=== PATIENT | male | born 1990 | race Caucasian/White ===

== ENCOUNTER 2018-03-23 12:18 | Emergency (ER) | payer OTHER ==
[2018-03-23 12:55] VITALS: BP 134/86; PULSE 80; RESP 18; TEMP 97
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
== END 2018-03-23 13:23 | disposition home or self-care (01) ==
LOC: EC 12:18
DX: S01.81XA Laceration without foreign body of other part of head, initial encounter (principal); S46.912A Strain of unspecified muscle, fascia and tendon at shoulder and upper arm level, left arm, initial encounter; F17.200 Nicotine dependence, unspecified, uncomplicated; Z88.5 Allergy status to narcotic agent; V86.09XA Driver of other special all-terrain or other off-road motor vehicle injured in traffic accident, initial encounter; Y93.55 Activity, bike riding; Y92.89 Other specified places as the place of occurrence of the external cause
CPT/HCPCS: 99282

== ENCOUNTER 2019-06-21 07:27 | Inpatient (IN) | payer BC, OTHER ==
[2019-06-21] MEDS ORDERED: HYDROmorphone 1 MG/ML 1 ML SYRINGE IVP STA (07:49)
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
--- NOTE | 2019-06-21 08:13 | XR ---
EXAMINATION TYPE: XR shoulder complete RT , 3 VIEWS DATE OF EXAM ORDERED: 06/21/2019 HISTORY: Pain. COMPARISON: None. FINDINGS: No fracture, dislocation or other acute osseous lesion is seen. IMPRESSION: NO ACUTE OSSEOUS LESION.
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
[2019-06-21 08:35] LABS: Basophils % (A) 0 %; Eosinophils # (A) 0.1 k/uL (0-0.7); Eosinophils % (A) 1 %; HCT 46.4 % (39.0-53.0); HGB 15.6 gm/dL (13.0-17.5); Lymphocytes # (A) 1.2 k/uL (1.0-4.8); Lymphocytes % (A) 9 %; MCH 32.8 pg (25.0-35.0); MCHC 33.6 g/dL (31.0-37.0); MCV 97.9 fL (80.0-100.0); Mean Platelet Volume 7.7; Monocytes # (A) 0.5 k/uL (0-1.0); Monocytes % (A) 3 %; Neutrophils # (A) 12.1 k/uL (1.3-7.7); Neutrophils % (A) 86 %; Platelet Count 238 k/uL (150-450); RBC 4.74 m/uL (4.30-5.90); RDW 14.1 % (11.5-15.5)
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
[2019-06-21 08:47] LABS: ALT 34 U/L (21-72); AST 67 U/L (17-59); African American GFR (CKD) >90 (>60 ml/min/1.73 sqM); Albumin 4.7 g/dL (3.5-5.0); Alkaline Phosphatase 99 U/L (38-126); Amylase 74 U/L (30-110); Anion Gap 11 mmol/L; Blood Urea Nitrogen 14 mg/dL (9-20); Calcium 9.6 mg/dL (8.4-10.2); Carbon Dioxide 24 mmol/L (22-30); Chloride 106 mmol/L (98-107); Glucose 88 mg/dL (74-99); INR 0.9 (<1.2); Partial Thromboplastin Time 24.9 sec (22.0-30.0); Potassium 4.7 mmol/L (3.5-5.1); Prothrombin Time 9.5 sec (9.0-12.0); Sodium 141 mmol/L (137-145); Total Bilirubin 0.9 mg/dL (0.2-1.3); Total Protein 7.8 g/dL (6.3-8.2)
[2019-06-21 08:49] LABS: Alcohol 86 mg/dL
[2019-06-21 08:56] LABS: Creatine Kinase 749 U/L (55-170)
[2019-06-21 09:09] LABS: Creatine Kinase MB 14.5 ng/mL (0.0-2.4); Troponin I <0.012 ng/mL (0.000-0.034)
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
--- NOTE | 2019-06-21 09:43 | XR ---
EXAMINATION TYPE: XR AC joint BILAT , 2 VIEWS DATE OF EXAM ORDERED: 06/21/2019 HISTORY: Pain. COMPARISON: None. FINDINGS: No fracture or dislocation is seen. The patient's sternal fracture is not identified on th is study. IMPRESSION: NO ACUTE FRACTURE IS IDENTIFIED.
[2019-06-21] MEDS ORDERED: SODIUM CHLORIDE 0.9% 1,000 ML IV ONE ×2 (09:56→10:04)
[2019-06-21] MEDS ORDERED: HYDROmorphone 1 MG/ML 1 ML SYRINGE IVP PRN (10:11)
[2019-06-21] MEDS ORDERED: ONDANSETRON 4 MG/2 ML VIAL IVP PRN (10:11)
[2019-06-21] MEDS ORDERED: ACETAMINOPHEN TAB 500 MG TAB PO STA (10:12)
[2019-06-21] MEDS ORDERED: SODIUM CHLORIDE 0.9% 1,000 ML IV SCH (10:15)
[2019-06-21 11:05] VITALS: RESP 16; TEMP 97.9
[2019-06-21 11:43] VITALS: BP 118/71; PULSE 62
[2019-06-21] MEDS ORDERED: KETOROLAC 30 MG/ML 1 ML VIAL IVP STA (13:08)
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
== END 2019-06-21 14:18 | disposition home or self-care (01) | DRG 565 ==
LOC: EC 07:27 → 3SCARD 10:04
PROVIDERS: ADMIT Surgery Plastic and Reconstructive Surgery; ATTEND Surgery Plastic and Reconstructive Surgery
DX: S22.20XA Unspecified fracture of sternum, initial encounter for closed fracture (principal); S27.321A Contusion of lung, unilateral, initial encounter; V86.56XA Driver of dirt bike or motor/cross bike injured in nontraffic accident, initial encounter; F17.200 Nicotine dependence, unspecified, uncomplicated; S43.50XA Sprain of unspecified acromioclavicular joint, initial encounter; Z88.5 Allergy status to narcotic agent
CPT/HCPCS: 36415; 70450; 71045; 71260; 72125; 72170; 73050; 74177; 80053; 80320; 82150; 82550; 82553; 83605; 83690; 84484; 85025; 85610; 85730; 86850; 86900; 86901; 93005; 96361; 96374; 99291

== ENCOUNTER 2020-12-23 21:24 | Emergency (ER) | payer BC ==
[2020-12-23 21:32] VITALS: RESP 18
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
[2020-12-23 22:04] LABS: Chloride 105 mmol/L (98-107); Potassium 5.2 mmol/L (3.5-5.1); Sodium 136 mmol/L (137-145)
[2020-12-23 22:08] LABS: Appearance,Urine Clear (Clear); Bilirubin,Urine 1+ (Negative); Blood,Urine Negative (Negative); Color,Urine Dark Yellow; Glucose,Urine (UA) Negative (Negative); Ketones,Urine Negative (Negative); Leukocyte Esterase,Urine Negative (Negative); Nitrite,Urine Negative (Negative); Protein,Urine Trace (Negative)
[2020-12-23 22:16] LABS: Anisocytosis Slight; HCT 28.7 % (39.0-53.0); MCV 101.1 fL (80.0-100.0); Macrocytosis Moderate; Mean Platelet Volume 9.1; Platelet Count 118 k/uL (150-450); RBC 2.84 m/uL (4.30-5.90); RDW 18.1 % (11.5-15.5); WBC 8.9 k/uL (3.8-10.6)
[2020-12-23 22:18] LABS: MCHC 32.9 g/dL (31.0-37.0)
[2020-12-23 22:19] LABS: HGB 9.5 gm/dL (13.0-17.5)
[2020-12-23 22:37] LABS: African American GFR (CKD) >90 (>60 ml/min/1.73 sqM); Anion Gap 7 mmol/L; Non-African American GFR(CKD) >90 (>60 ml/min/1.73 sqM)
[2020-12-23 22:42] LABS: Albumin 2.9 g/dL (3.5-5.0); Blood Urea Nitrogen 26 mg/dL (9-20); Carbon Dioxide 24 mmol/L (22-30); Total Bilirubin 3.7 mg/dL (0.2-1.3)
[2020-12-23 22:43] LABS: ALT 100 U/L (4-49); AST 185 U/L (17-59); Alkaline Phosphatase 532 U/L (38-126)
[2020-12-23 22:44] LABS: Glucose 109 mg/dL (74-99)
[2020-12-23 22:45] LABS: Band Neutrophils % 1 %; Eosinophils # (M) 0.09 k/uL (0-0.7); Lymphocytes # (M) 4.45 k/uL (1.0-4.8); Monocytes # (M) 0.18 k/uL (0-1.0); Neutrophils % (M) 46 %; Nucleated Red Blood Cells 0 /100 WBC (0-0); Total Cells Counted 100
--- NOTE | 2020-12-23 23:45 | US ---
EXAMINATION TYPE: US venous doppler duplex LE DATE OF EXAM: 12/23/2020 11:25 PM COMPARISON: NONE CLINICAL HISTORY: Elevated d-dimer. Overall limb and face swelling SIDE PERFORMED: Bilateral TECHNIQUE: The lower extremity deep venous system is examined utilizing real time linear array sonog praveena with graded compression, doppler sonography and color-flow sonography. VESSELS IMAGED: Common Femoral Vein Deep Femoral Vein Greater Saphenous Vein * Femoral Vein Popliteal Vein Small Saphenous Vein * Proximal Calf Veins (* superficial vessels) Right Leg: Negative for DVT Left Leg: Negative for DVT Edema channels are noted bilateral popliteal fossa and at ankles.Right groin lymph node is seen =1.7 x 0.8 x 0.6cm. Left groin lymph node is seen = 2.5 x 1.1 x 0.6cm. IMPRESSION: No evidence of deep vein thrombosis in both legs. Mild edema noted.
[2020-12-24 00:27] VITALS: BP 104/66; PULSE 64; TEMP 98.8
== END 2020-12-24 00:32 | disposition home or self-care (01) ==
LOC: EC 21:24
DX: R60.0 Localized edema (principal); K70.40 Alcoholic hepatic failure without coma; F10.20 Alcohol dependence, uncomplicated; F17.200 Nicotine dependence, unspecified, uncomplicated; Z88.5 Allergy status to narcotic agent; Y90.9 Presence of alcohol in blood, level not specified
CPT/HCPCS: 36415; 80053; 81003; 85025; 85379; 93970; 99284

== ENCOUNTER → 2021-01-02 | Outpatient (CLI) | payer BC ==
--- NOTE | 2021-01-02 16:14 | CT ---
EXAMINATION TYPE: CT abdomen pelvis w con DATE OF EXAM: 01/02/2021 COMPARISON: CT June 21, 2019 HISTORY: Enlarged lymph nodes, liver failure CT DLP: 403.9 mGycm, Automated Exposure Control for Dose Reduction was Utilized. CONTRAST: CT scan of the abdomen and pelvis is performed with oral and with IV Contrast, patient injected with 100 mL of Isovue 300. FINDINGS: LUNG BASES: No significant abnormality is appreciated. LIVER/GB: Contracted gallbladder currently likely product of debris-filled stomach. Liver size stable and within normal limits with prominent left hepatic lobe redemonstrated PANCREAS: No significant abnormality is seen. SPLEEN: No significant abnormality is seen. ADRENALS: No significant abnormality is seen. KIDNEYS: Symmetric corticomedullary uptake and excretion without hydronephrosis seen bilaterally. Sin gle left-sided pelvic phlebolith. BOWEL: Oral contrast reaches level of the sigmoid colon. Patient has very little intra-abdominal fat making evaluation suboptimal. No suspicious small or large bowel dilatation is seen. Note is made of wandering cecum actually to left of midline in the mid pelvis with terminal ileum axial image 59 sita esponding to coronal image 51. This in retrospect was present on prior study is seen better on curren t study due to enteric contrast. Seen better on prior study there is narrowing of mesenteric structur es coronal image 31 localized small bowel loops in the right lower quadrant and upper pelvis. PROSTATE/SEMINAL VESICLES: No gross abnormality seen. LYMPH NODES: No greater than 1cm abdominal or pelvic lymph nodes are appreciated. OSSEOUS STRUCTURES: Some facet arthropathy lower lumbar spine. OTHER: No significant additional abnormality is seen. IMPRESSION: No significant new or acute finding is seen to account for patient's clinical symptoms. There is wandering cecum to the left of midline in the mid pelvis redemonstrated. There is suspected long-standing internal hernia containing nondilated small bowel loops along with fat and mesenteric v essels in the right lower quadrant. Consider surgical referral. No suspicious adenopathy.
== END ==
LOC: RADCTMAIN 13:26
PROVIDERS: ATTEND Family Medicine
DX: K72.90 Hepatic failure, unspecified without coma (principal)
CPT/HCPCS: 74177; Q9967

== ENCOUNTER → 2021-06-29 | Outpatient (CLI) | payer BC ==
[2021-06-29 16:39] LABS: Basophils % (A) 1 %; Eosinophils # (A) 0.1 k/uL (0-0.7); Eosinophils % (A) 1 %; HCT 36.9 % (39.0-53.0); HGB 12.1 gm/dL (13.0-17.5); Lymphocytes # (A) 1.7 k/uL (1.0-4.8); Lymphocytes % (A) 23 %; MCH 35.6 pg (25.0-35.0); MCHC 32.7 g/dL (31.0-37.0); Macrocytosis Marked; Mean Platelet Volume 8.7; Monocytes # (A) 0.2 k/uL (0-1.0); Monocytes % (A) 3 %; Neutrophils # (A) 4.9 k/uL (1.3-7.7); Neutrophils % (A) 69 %; Platelet Count 148 k/uL (150-450); RBC 3.39 m/uL (4.30-5.90); RDW 14.5 % (11.5-15.5); WBC 7.1 k/uL (3.8-10.6)
[2021-06-29 16:49] LABS: ALT 77 U/L (4-49); AST 172 U/L (17-59); African American GFR (CKD) >90 (>60 ml/min/1.73 sqM); Albumin 3.1 g/dL (3.5-5.0); Alkaline Phosphatase 359 U/L (38-126); Anion Gap 6 mmol/L; Blood Urea Nitrogen 18 mg/dL (9-20); Calcium 8.6 mg/dL (8.4-10.2); Carbon Dioxide 26 mmol/L (22-30); Chloride 101 mmol/L (98-107); Glucose 105 mg/dL (74-99); Non-African American GFR(CKD) >90 (>60 ml/min/1.73 sqM); Potassium 4.7 mmol/L (3.5-5.1); Sodium 133 mmol/L (137-145); Total Bilirubin 1.5 mg/dL (0.2-1.3); Total Protein 6.5 g/dL (6.3-8.2)
[2021-06-29 16:51] LABS: INR 1.3 (<1.2); Prothrombin Time 13.5 sec (9.0-12.0)
[2021-06-30 03:12] LABS: Hepatitis A Antibody IgM Non-Reactive (Non-Reactive); Hepatitis B Core IgM Non-Reactive (Non-Reactive); Hepatitis B Surface Antigen Non-Reactive (Non-Reactive); Hepatitis C IgG Antibody Non-Reactive (Non-Reactive)
[2021-06-30 04:05] LABS: % Iron Saturation 74.46 (15.00-50.00); Ferritin 647.5 ng/mL (22.0-322.0); Iron 137 ug/dL (65-175); Total Iron Binding Capacity 184 ug/dL (228-460)
--- NOTE | 2021-06-30 08:45 | CT ---
EXAMINATION TYPE: CT abdomen pelvis w con DATE OF EXAM: 06/29/2021 COMPARISON: 01/02/2021 HISTORY: 31-year-old male R63.4, abnormal weight loss x4 months TECHNIQUE: Contiguous axial scanning of the abdomen and pelvis following administration of 100 ml Iso spencer 300 IV contrast. Delayed images through the kidneys and coronal/sagittal reconstructions perform ed. CT DLP: 379.5 mGycm Automated exposure control for dose reduction was used. FINDINGS: Heart normal size without pericardial effusion. Lung bases clear without pleural effusion. Hepatomegaly at 19.1 cm versus 16.2 cm, previously. There is diffuse low attenuation of the hepatic p arenchyma. Portal venous system is patent. Bile duct caliber 6.3 mm versus 5.6 mm, previously. The gallbladder is markedly hydropic measuring 12.9 cm long and 5.5 cm wide. No significant wall thic kening or surrounding inflammation is seen. Adrenal glands, kidneys, spleen, and pancreas appear within normal limits. No dilated small bowel, free fluid, or free air. No mesenteric or retroperitoneal lymphadenopathy. Bladder is urine distended. Prostate gland 4.4 cm wide. Left-sided pelvic phlebolith. No abnormal flu id collection in the pelvis or pelvic lymph adenopathy. Bones: No osseous destructive process. IMPRESSION: 1. NEW HEPATOMEGALY AT 19.1 CM (VERSUS 16.2 CM, PREVIOUSLY) NOW WITH DIFFUSE LOW ATTENUATION. CORRELA TE FOR HEPATIC STEATOSIS VERSUS HEPATITIS. 2. BILE DUCT BORDERLINE DISTENDED AT 6.3 MM VERSUS 5.6 MM, PREVIOUSLY. CORRELATE WITH ALKALINE PHOSPH ATASE AND BILIRUBIN LEVELS TO EXCLUDE EARLY BILIARY OBSTRUCTION. BY CT, NO DISTAL OBSTRUCTING LESION IS SEEN. 3. THE GALLBLADDER IS ALSO PROMINENTLY HYDROPIC MEASURING 12.9 X 5.5 CM. HOWEVER, NO WALL THICKENING OR SURROUNDING INFLAMMATION IS SEEN. FINDINGS MAY RELATED TO FASTING STATE. IF CONCERN FOR GALLBLADDE R DYSFUNCTION OR EARLY CHOLECYSTITIS, HIDA SCAN CAN BE CONSIDERED.
== END | disposition home or self-care (01) ==
LOC: RADCTMAIN 15:40
PROVIDERS: ATTEND Internal Medicine Gastroenterology
DX: R16.0 Hepatomegaly, not elsewhere classified (principal)
CPT/HCPCS: 80053; 80074; 82728; 83540; 83550; 85025; 85610; 83516; 82390; 86038; 74177; 36415; Q9967

== ENCOUNTER 2021-07-06 19:32 | Inpatient (IN) | payer BC ==
[2021-07-06] MEDS ORDERED: SODIUM CHLORIDE 0.9% 1,000 ML IV STA (22:13)
[2021-07-06] MEDS ORDERED: SODIUM CHLORIDE 0.9% 2,000 ML IV STA (22:13)
[2021-07-06] MEDS ORDERED: MORPHINE SULFATE 4 MG/ML SYRINGE IV STA (22:13)
[2021-07-06] MEDS ORDERED: KETOROLAC 15 MG/ML 1 ML VIAL IVP STA (22:13)
[2021-07-06 22:49] LABS: Basophils # (A) 0.1 k/uL (0-0.2); Basophils % (A) 1 %; Eosinophils # (A) 0.1 k/uL (0-0.7); Eosinophils % (A) 1 %; HCT 40.2 % (39.0-53.0); HGB 13.8 gm/dL (13.0-17.5); Lymphocytes # (A) 1.8 k/uL (1.0-4.8); Lymphocytes % (A) 18 %; MCH 35.9 pg (25.0-35.0); MCHC 34.3 g/dL (31.0-37.0); MCV 104.9 fL (80.0-100.0); Macrocytosis Moderate; Mean Platelet Volume 8.6; Monocytes # (A) 0.6 k/uL (0-1.0); Monocytes % (A) 6 %; Neutrophils # (A) 7.1 k/uL (1.3-7.7); Neutrophils % (A) 73 %; Platelet Count 122 k/uL (150-450); RBC 3.83 m/uL (4.30-5.90); RDW 14.4 % (11.5-15.5); WBC 9.7 k/uL (3.8-10.6)
[2021-07-06 22:58] LABS: ALT 68 U/L (4-49); AST 175 U/L (17-59); African American GFR (CKD) >90 (>60 ml/min/1.73 sqM); Albumin 3.5 g/dL (3.5-5.0); Alkaline Phosphatase 424 U/L (38-126); Anion Gap 8 mmol/L; Blood Urea Nitrogen 18 mg/dL (9-20); Calcium 8.9 mg/dL (8.4-10.2); Carbon Dioxide 26 mmol/L (22-30); Chloride 97 mmol/L (98-107); Glucose 138 mg/dL (74-99); Non-African American GFR(CKD) >90 (>60 ml/min/1.73 sqM); Potassium 3.8 mmol/L (3.5-5.1); Sodium 131 mmol/L (137-145); Total Bilirubin 3.1 mg/dL (0.2-1.3); Total Protein 7.1 g/dL (6.3-8.2)
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
[2021-07-06 23:25] LABS: Amylase 437 U/L (30-110)
[2021-07-06 23:26] LABS: Lipase 6074 U/L (23-300)
[2021-07-06] MEDS ORDERED: NALOXONE 0.4 MG/ML 1 ML VIAL IV PRN (23:45)
[2021-07-06] MEDS ORDERED: ONDANSETRON 4 MG/2 ML VIAL IVP PRN (23:45)
[2021-07-07] MEDS: SODIUM CHLORIDE 0.9% 1,000 ML IV SCH ×4 (01:04→21:43)
[2021-07-07 06:09] LABS: ALT 52 U/L (4-49); AST 131 U/L (17-59); African American GFR (CKD) >90 (>60 ml/min/1.73 sqM); Albumin 2.3 g/dL (3.5-5.0); Alkaline Phosphatase 272 U/L (38-126); Anion Gap 2 mmol/L; Blood Urea Nitrogen 16 mg/dL (9-20); Calcium 7.3 mg/dL (8.4-10.2); Carbon Dioxide 22 mmol/L (22-30); Chloride 108 mmol/L (98-107); Glucose 101 mg/dL (74-99); Magnesium 1.4 mg/dL (1.6-2.3); Non-African American GFR(CKD) >90 (>60 ml/min/1.73 sqM); Potassium 3.8 mmol/L (3.5-5.1); Sodium 132 mmol/L (137-145); Total Bilirubin 2.9 mg/dL (0.2-1.3); Total Protein 5.2 g/dL (6.3-8.2)
[2021-07-07] MEDS: MORPHINE SULFATE 4 MG/ML SYRINGE IV PRN ×4 (06:23→18:51)
[2021-07-07 06:43] LABS: Basophils % (A) 0 %; Eosinophils # (A) 0.1 k/uL (0-0.7); Eosinophils % (A) 1 %; HCT 31.3 % (39.0-53.0); Lymphocytes # (A) 1.6 k/uL (1.0-4.8); Lymphocytes % (A) 25 %; MCH 35.5 pg (25.0-35.0); MCV 107.5 fL (80.0-100.0); Macrocytosis Moderate; Mean Platelet Volume 9.5; Monocytes # (A) 0.3 k/uL (0-1.0); Monocytes % (A) 5 %; Neutrophils # (A) 4.1 k/uL (1.3-7.7); Neutrophils % (A) 65 %; RBC 2.91 m/uL (4.30-5.90); WBC 6.4 k/uL (3.8-10.6)
[2021-07-07 06:49] LABS: HGB 10.3 gm/dL (13.0-17.5)
[2021-07-07 07:04] LABS: Platelet Count 96 k/uL (150-450)
[2021-07-07 08:58] LABS: Amylase 294 U/L (30-110)
[2021-07-07 09:18] LABS: Lipase 3959 U/L (23-300)
[2021-07-07] MEDS: PANTOPRAZOLE 40 MG/10 ML VIAL IV SCH (10:05)
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
[2021-07-07] MEDS: MAGNESIUM SULFATE-D5W PMX 1 GM in DEXTROSE/WATER 1 100ML.BAG IVPB SCH ×2 (13:00→14:07)
[2021-07-07] MEDS ORDERED: KETOROLAC 15 MG/ML 1 ML VIAL IVP ONE (19:57)
[2021-07-08] MEDS: SODIUM CHLORIDE 0.9% 1,000 ML IV SCH ×3 (05:39→19:12)
[2021-07-08] MEDS: MORPHINE SULFATE 4 MG/ML SYRINGE IV PRN ×4 (05:41→19:08)
[2021-07-08 06:24] LABS: Hepatitis A Antibody IgM Non-Reactive (Non-Reactive); Hepatitis B Core IgM Non-Reactive (Non-Reactive); Hepatitis B Surface Antigen Non-Reactive (Non-Reactive); Hepatitis C IgG Antibody Non-Reactive (Non-Reactive)
[2021-07-08] MEDS: PANTOPRAZOLE 40 MG/10 ML VIAL IV SCH (08:32)
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
[2021-07-08] MEDS: FLUoxetine HCL 10 MG CAP PO SCH (09:48)
[2021-07-08 12:16] LABS: African American GFR (CKD) 156.4 (60.0-200.0); Albumin 2.6 g/dL (3.80-4.90); Albumin/Globulin Ratio 1.08 (1.60-3.17); Anion Gap 6.5 mmol/L (4.00-12.00); Calcium 7.8 mg/dL (8.7-10.3); Carbon Dioxide 22.5 mmol/L (21.6-31.8); Globulin 2.4 g/dL (1.6-3.3); Non-African American GFR(CKD) 134.9 (60.0-200.0); Potassium 3.8 mmol/L (3.5-5.5); Total Bilirubin 4.3 mg/dL (0.3-1.2)
[2021-07-08 12:45] VITALS: BMI 16.2
[2021-07-08 13:13] LABS: Basophils # (A) 0.03 X 10*3/uL (0.00-0.10); Basophils % (A) 0.5 %; Eosinophils # (A) 0.11 X 10*3/uL (0.04-0.35); Eosinophils % (A) 1.9 %; HCT 30.4 % (39.6-50.0); HGB 10.2 g/dL (13.0-17.0); Lymphocytes # (A) 0.88 X 10*3/uL (0.90-5.00); Lymphocytes % (A) 14.9 %; MCH 33.2 pg (27.0-32.0); MCHC 33.6 g/dL (32.0-37.0); Mean Platelet Volume 12.1 fL (9.5-12.2); Monocytes # (A) 0.63 X 10*3/uL (0.20-1.00); Monocytes % (A) 10.7 %; Neutrophils # (A) 4.24 X 10*3/uL (1.80-7.70); Neutrophils % (A) 71.7 %; Platelet Count 83 X 10*3/uL (140-440); RBC 3.07 X 10*6/uL (4.40-5.60); RDW 14.6 % (11.5-14.5); WBC 5.91 X 10*3/uL (4.50-10.00)
--- NOTE | 2021-07-08 14:21 | P.PN ---
Subjective Progress Note Date: 07/08/21 CHIEF COMPLAINT: Abdominal pain with pancreatitis HISTORY OF PRESENT ILLNESS: The patient is a 31-year-old male admitted for pancreatitis. He has a past history of heavy alcohol abuse. He presented with abdominal pain with pancreatitis. His abdominal pain is improving. He is having bowel movements. ROS: No reports of nausea and vomiting. No fevers or chills. No new chest pain. No productive sputum PHYSICAL EXAM: VITAL SIGNS: Reviewed CONSTITUTIONAL: Well developed and in no acute distress. EYES: Conjuctivae sclera icterus. Extraocular movements grossly intact. HEAD, EARS, NOSE, THROAT: Moist buccal mucosa. Head is atraumatic, normocephalic. Hears conversational speech. No nasal drainage. NECK: No gross thyroidomegaly. No jugular venous distention. RESPIRATORY: Non-labored respirations and equal bilateral excursions. CARDIOVASCULAR: Palpable 2+ radial pulses. Regular rate. Regular rhythm. ABDOMEN: No peritonitis. MUSCULOSKELETAL: No gross deformity of the lower extremities noted. No clubbing. No cyanosis. SKIN: Good skin turgor. Well perfused. NEUROLOGIC: Cranial nerves II through XII grossly intact. No focal or lateralizing signs. PSYCH: Appropriate affect. Alert and oriented to person, place and time. CLINICAL LABS: White blood cell count normal at 6.4. Total bilirubin elevated to 2.9 down from 3.1. LFTs elevated. Lipase elevated 3959 down from over 6000. STUDIES: CT of the abdomen and pelvis independently reviewed with distended gallbladder. Moderate severe hepatomegaly identified. Little intra-abdominal fat. This is my independent interpretation. US gallbladder independently reviewed CBD dilated 1.07 cm. Gallbladder distended without gallstones identified. This is my independent interpretation. Ultrasound gallbladder port also reviewed with dilated common bile duct 1.1 cm unclear etiology. ASSESSMENT: 1. Pancreatitis with history of alcohol use 2. Dilated common bile duct 3. Hyperbilirubinemia PLAN: 1. Clinically he reports improvement of his symptoms. 2. He has dilated CBD that may benefit from MRCP and can be done as an outpatient. 3. He is clinically improving and may be stable for discharge once medically s table. Objective - Vital Signs Vital signs: Vital Signs Temp 97.6 F 07/08/21 06:48 Pulse 85 07/08/21 06:48 Resp 19 07/08/21 06:48 BP 145/88 07/08/21 06:48 Pulse Ox 96 07/08/21 06:48 Intake & Output 07/07/21 07/08/21 07/08/21 18:59 06:59 18:59 Intake Total 520 1560 Output Total 1 Balance 520 1559 Weight 55.792 kg Intake: IV 520 1560 Sodium Chloride 0.9% 1, 520 1560 000 ml @ 130 mls/hr IV . Q7H42M [facility] Rx#:[id number] Output: Urine 1 - Labs CBC & Chem 7: 07/08/21 07:46 07/08/21 07:46 Assessment and Plan (1) Hyperbilirubinemia Current Visit: Yes Status: Acute Code(s): E80.6 - OTHER DISORDERS OF BILIRUBIN METABOLISM SNOMED Code(s): 06171166 (2) Dilated cbd, acquired Current Visit: Yes Status: Acute Code(s): K83.8 - OTHER SPECIFIED DISEASES OF BILIARY TRACT SNOMED Code(s): 3574187079079582 (3) Hepatomegaly Current Visit: Yes Status: Acute Code(s): R16.0 - HEPATOMEGALY, NOT ELSEWHERE CLASSIFIED SNOMED Code(s): 99340523 (4) Hydrops of gallbladder Current Visit: Yes Status: Acute Code(s): K82.1 - HYDROPS OF GALLBLADDER SNOMED Code(s): 35130463 (5) Acute pancreatitis Current Visit: Yes Status: Acute Code(s): K85.90 - ACUTE PANCREATITIS WITHOUT NECROSIS OR INFECTION, UNSP SNOMED Code(s): 465051762
--- NOTE | 2021-07-08 18:36 | P.PN ---
Subjective Progress Note Date: 07/08/21 Principal diagnosis: Acute pancreatitis Elevated LFTs/total bilirubin Dilated common bile duct EtOH abuse 31-year-old male with history of alcoholism coming in with 3-4 days of abdominal pain. Outpatient lab tests were consistent with pancreatitis of unknown cause. Patient did have an ultrasound which shows maybe gallbladder disease. Patient no longer drinks alcohol. She presents today after injuring of his family doctor for evaluation regarding gallbladder induced pancreatitis. He does have significant pain epigastric right upper quadrant abdominal pain no nausea vomiting diarrhea or other complaints. No fevers; abdominal ultrasound compl eted showing a dilated common bile duct, etiology unclear. Patient's pancreatic enzymes and LFTs are elevated. He was admitted to the hospital for an acute pancreatitis. Patient denies any history of pancreatitis in the past. He denies any fever chills or sweats. He does report that his urine is dark. Laboratory reveals a WBC of 6.4, hemoglobin 10.3 and platelet count of 96; sodium 132, potassium 2.8, creatinine 0.65, glucose 11 and lactic acid of 1.1, magnesium 1.4, total bilirubin 2.9 which is down from 3.1 as outpatient, AST/ALT 131/52 which is trending down, amylase is trending down and is down from 437 down to 94, lipase is down to 3959 from 6074 Computed tomography scan abdomen and pelvis completed on 06/30/2021 new hepatomegaly at 19.1 cm versus 16.2 cm previously now with diffuse a low attenuation correlate for hepatic steatosis versus hepatitis. Bile duct borderline distended at 16.3 mm versus 5.6 mm. Gallbladder is also probably hydropic measuring 12.9 x 5.5 cm. No wall thickening or surrounding inflammation seen. Findings may related to fasting state. Abdominal ultrasound completed showing a dilated common bile duct, etiology unclear Objective - Vital Signs Vital signs: Vital Signs Temp 97.6 F 07/08/21 06:48 Pulse 85 07/08/21 06:48 Resp 19 07/08/21 06:48 BP 145/88 07/08/21 06:48 Pulse Ox 96 07/08/21 06:48 Intake & Output 07/07/21 07/08/21 07/08/21 18:59 06:59 18:59 Intake Total 520 1560 Output Total 1 Balance 520 1559 Weight 55.792 kg Intake: IV 520 1560 Sodium Chloride 0.9% 1, 520 1560 000 ml @ 130 mls/hr IV . Q7H42M [facility] Rx#:[id number] Output: Urine 1 - Exam General appearance: Present: average body habitus, cooperative, no acute distress Eyes: Present: anicteric sclerae, EOMI, PERRLA, normal appearance Neck: Present: normal ROM. Absent: lymphadenopathy, rigidity, thyromegaly Thyroid: bilateral: normal size, negative: enlarged, nodule Respiratory: bilateral: CTA, negative: rales, rhonchi, wheezing Rhythm: regular Heart sounds: normal: S1, S2 Abnormal Heart Sounds: Absent: systolic murmur, diastolic murmur General gastrointestinal: Present: normal bowel sounds, soft. Absent: distended, organomegaly, tenderness Integumentary: Present: normal turgor. Absent: jaundiced, rash, ulcer Neurologic: Present: CNII-XII intact. Absent: focal deficits Musculoskeletal: Present: gait normal, strength equal bilaterally - Labs CBC & Chem 7: 07/08/21 07:46 07/08/21 07:46
[2021-07-09] MEDS: SODIUM CHLORIDE 0.9% 1,000 ML IV SCH ×3 (05:45→21:03)
[2021-07-09] MEDS: FLUoxetine HCL 10 MG CAP PO SCH (08:26)
[2021-07-09] MEDS: PANTOPRAZOLE 40 MG/10 ML VIAL IV SCH (08:26)
--- NOTE | 2021-07-09 13:54 | P.PN ---
Subjective Progress Note Date: 07/09/21 CHIEF COMPLAINT: Abdominal pain with pancreatitis HISTORY OF PRESENT ILLNESS: The patient is a 31-year-old male admitted for pancreatitis. He denies significant abdominal pain. He reports hunger. ROS: No reports of nausea and vomiting. No fevers or chills. No new chest pain. No productive sputum PHYSICAL EXAM: VITAL SIGNS: Reviewed CONSTITUTIONAL: Well developed and in no acute distress. EYES: Conjuctivae sclera icterus. Extraocular movements grossly intact. HEAD, EARS, NOSE, THROAT: Moist buccal mucosa. Head is atraumatic, normocephalic. Hears conversational speech. No nasal drainage. RESPIRATORY: Non-labored respirations and equal bilateral excursions. CARDIOVASCULAR: Palpable 2+ radial pulses. Regular rate. Regular rhythm. ABDOMEN: No peritonitis. MUSCULOSKELETAL: No gross deformity of the lower extremities noted. No clubbing. No cyanosis. SKIN: Good skin turgor. Well perfused. NEUROLOGIC: Cranial nerves II through XII grossly intact. No focal or lateralizing signs. PSYCH: Appropriate affect. Alert and oriented to person, place and time. CLINICAL LABS: Reviewed. Total bilirubin trending upwards. LFTs trending down. ASSESSMENT: 1. Pancreatitis with history of alcohol use 2. Dilated common bile duct 3. Hyperbilirubinemia PLAN: 1. He clinically feels well but total bilirubin continues to elevate 2. May start low fat diet. 3. May need MRCP with trending total bilirubin and possible transfer without gastroenterology team coverage Objective - Vital Signs Vital signs: Vital Signs Temp 96.3 F L 07/09/21 07:50 Pulse 73 07/09/21 07:50 Resp 18 07/09/21 07:50 BP 125/83 07/09/21 07:50 Pulse Ox 96 07/09/21 07:50 Intake & Output 07/08/21 07/09/21 07/09/21 18:59 06:59 18:59 Intake Total 2620 1380 Balance 2620 1380 Weight 55.792 kg Intake: IV 780 Sodium Chloride 0.9% 1, 780 000 ml @ 130 mls/hr IV . Q7H42M [facility] Rx#:[id number] Intake, IV Titration 2620 Amount Sodium Chloride 0.9% 1, 2620 000 ml @ 130 mls/hr IV . Q7H42M [facility] Rx#:[id number] Oral 600 Other: Voiding Method Toilet Toilet # Voids 4 2 # Bowel Movements 1 - Labs CBC & Chem 7: 07/08/21 07:46 07/08/21 07:46 Assessment and Plan (1) Hyperbilirubinemia Current Visit: Yes Status: Acute Code(s): E80.6 - OTHER DISORDERS OF BILIRUBIN METABOLISM SNOMED Code(s): 80804325 (2) Dilated cbd, acquired Current Visit: Yes Status: Acute Code(s): K83.8 - OTHER SPECIFIED DISEASES OF BILIARY TRACT SNOMED Code(s): 6063738829904248 (3) Hepatomegaly Current Visit: Yes Status: Acute Code(s): R16.0 - HEPATOMEGALY, NOT ELSEWHERE CLASSIFIED SNOMED Code(s): 17138200 (4) Hydrops of gallbladder Current Visit: Yes Status: Acute Code(s): K82.1 - HYDROPS OF GALLBLADDER SNOMED Code(s): 76651512 (5) Acute pancreatitis Current Visit: Yes Status: Acute Code(s): K85.90 - ACUTE PANCREATITIS WITHOUT NECROSIS OR INFECTION, UNSP SNOMED Code(s): 681355741
[2021-07-09] MEDS: MORPHINE SULFATE 4 MG/ML SYRINGE IV PRN ×2 (17:35→20:58)
--- NOTE | 2021-07-09 18:15 | P.PN ---
Subjective Progress Note Date: 07/09/21 Principal diagnosis: Acute pancreatitis Elevated LFTs/total bilirubin Dilated common bile duct EtOH abuse 31-year-old male with history of alcoholism coming in with 3-4 days of abdominal pain. Outpatient lab tests were consistent with pancreatitis of unknown cause. Patient did have an ultrasound which shows maybe gallbladder disease. Patient no longer drinks alcohol. She presents today after injuring of his family doctor for evaluation regarding gallbladder induced pancreatitis. He does have significant pain epigastric right upper quadrant abdominal pain no nausea vomiting diarrhea or other complaints. No fevers; abdominal ultrasound compl eted showing a dilated common bile duct, etiology unclear. Patient's pancreatic enzymes and LFTs are elevated. He was admitted to the hospital for an acute pancreatitis. Patient denies any history of pancreatitis in the past. He denies any fever chills or sweats. He does report that his urine is dark. Laboratory reveals a WBC of 6.4, hemoglobin 10.3 and platelet count of 96; sodium 132, potassium 2.8, creatinine 0.65, glucose 11 and lactic acid of 1.1, magnesium 1.4, total bilirubin 2.9 which is down from 3.1 as outpatient, AST/ALT 131/52 which is trending down, amylase is trending down and is down from 437 down to 94, lipase is down to 3959 from 6074 Computed tomography scan abdomen and pelvis completed on 06/30/2021 new hepatomegaly at 19.1 cm versus 16.2 cm previously now with diffuse a low attenuation correlate for hepatic steatosis versus hepatitis. Bile duct borderline distended at 16.3 mm versus 5.6 mm. Gallbladder is also probably hydropic measuring 12.9 x 5.5 cm. No wall thickening or surrounding inflammation seen. Findings may related to fasting state. Abdominal ultrasound completed showing a dilated common bile duct, etiology unclear 07/09/2021 Patient is seen and evaluated in room at bedside; does report improvement in symptoms; no further complaint of nausea/vomiting or abdominal pain Patient has been evaluated by general surgery; given continued uptrending total bilirubin, patient is recommended MRCP MRCP is ordered which cannot be done until Saturday; we will continue to monitor liver enzymes; patient has been placed on a low-fat diet Objective - Vital Signs Vital signs: Vital Signs Temp 97.9 F 07/09/21 14:00 Pulse 72 07/09/21 14:00 Resp 18 07/09/21 14:00 BP 133/78 07/09/21 14:00 Pulse Ox 96 07/09/21 14:00 Intake & Output 07/08/21 07/09/21 07/09/21 18:59 06:59 18:59 Intake Total 2620 1380 Balance 2620 1380 Weight 55.792 kg Intake: IV 780 Sodium Chloride 0.9% 1, 780 000 ml @ 130 mls/hr IV . Q7H42M [facility] Rx#:[id number] Intake, IV Titration 2620 Amount Sodium Chloride 0.9% 1, 2620 000 ml @ 130 mls/hr IV . Q7H42M [facility] Rx#:[id number] Oral 600 Other: Voiding Method Toilet Toilet # Voids 4 2 # Bowel Movements 1 - Exam General appearance: Present: average body habitus, cooperative, no acute distress Eyes: Present: anicteric sclerae, EOMI, PERRLA, normal appearance Neck: Present: normal ROM. Absent: lymphadenopathy, rigidity, thyromegaly Thyroid: bilateral: normal size, negative: enlarged, nodule Respiratory: bilateral: CTA, negative: rales, rhonchi, wheezing Rhythm: regular Heart sounds: normal: S1, S2 Abnormal Heart Sounds: Absent: systolic murmur, diastolic murmur General gastrointestinal: Present: normal bowel sounds, soft. Absent: distended, organomegaly, tenderness Integumentary: Present: normal turgor. Absent: jaundiced, rash, ulcer Neurologic: Present: CNII-XII intact. Absent: focal deficits Musculoskeletal: Present: gait normal, strength equal bilaterally - Labs CBC & Chem 7: 07/08/21 07:46 07/08/21 07:46 Assessment and Plan Assessment: 1. Acute pancreatitis - We will keep patient nothing by mouth; continue with IV fluid resuscitation; we will continue to monitor amylase lipase; plan to start patient on diet once stable 2. Elevated LFTs and total bilirubin; etiology unclear; we will continue to monitor liver enzymes; patient will need GI evaluation 3. Dilated common bile duct; no signs of choledocholithiasis; no signs of acute cholecystitis; general surgery consulted and recommendations are pending 4. Hypomagnesemia; replaced in ED; we will continue to monitor electrolytes closely 5. EtOH abuse; patient quit drinking 3 weeks ago; we will continue with IV fluids and resume home dose of thiamine and folic acid once oral intake is established 6. Depression; continue with home dose of Prozac 10 mg daily DVT prophylaxis; SCDs CODE STATUS; full code
[2021-07-10] MEDS: MORPHINE SULFATE 4 MG/ML SYRINGE IV PRN ×6 (02:18→21:48)
[2021-07-10] MEDS: SODIUM CHLORIDE 0.9% 1,000 ML IV SCH ×3 (04:31→21:49)
[2021-07-10] MEDS: PANTOPRAZOLE 40 MG/10 ML VIAL IV SCH (08:08)
[2021-07-10] MEDS: FLUoxetine HCL 10 MG CAP PO SCH (08:08)
[2021-07-10 08:10] LABS: ALT 35 U/L (4-49); AST 62 U/L (17-59); African American GFR (CKD) >90 (>60 ml/min/1.73 sqM); Albumin 2.2 g/dL (3.5-5.0); Albumin/Globulin Ratio 0.8; Alkaline Phosphatase 252 U/L (38-126); Anion Gap 3 mmol/L; Blood Urea Nitrogen <2 mg/dL (9-20); Calcium 7.8 mg/dL (8.4-10.2); Carbon Dioxide 24 mmol/L (22-30); Chloride 108 mmol/L (98-107); Globulin 2.9 g/dL; Glucose 106 mg/dL (74-99); HCT 29.9 % (39.0-53.0); HGB 9.8 gm/dL (13.0-17.5); MCHC 32.7 g/dL (31.0-37.0); Macrocytosis Moderate; Magnesium 1.6 mg/dL (1.6-2.3); Mean Platelet Volume 8.9; Non-African American GFR(CKD) >90 (>60 ml/min/1.73 sqM); Platelet Count 139 k/uL (150-450); Potassium 3.6 mmol/L (3.5-5.1); RBC 2.79 m/uL (4.30-5.90); RDW 14.7 % (11.5-15.5); Sodium 135 mmol/L (137-145); Total Bilirubin 2.4 mg/dL (0.2-1.3); Total Protein 5.1 g/dL (6.3-8.2); WBC 5.8 k/uL (3.8-10.6)
[2021-07-10 09:09] LABS: Albumin 2.5 g/dL (3.80-4.90); Albumin/Globulin Ratio 1.09 (1.60-3.17); Bilirubin, Conjugated 1.8 mg/dL (0.20-0.40); Bilirubin,Unconjugated 0.7 mg/dL; Globulin 2.3 g/dL (1.6-3.3); Total Bilirubin 2.5 mg/dL (0.3-1.2); Total Protein 4.8 g/dL (6.2-8.2)
[2021-07-10 10:20] LABS: Eosinophils # (M) 0.12 k/uL (0-0.7); Nucleated Red Blood Cells 0 /100 WBC (0-0)
[2021-07-10 10:26] LABS: Lymphocytes # (M) 0.87 k/uL (1.0-4.8); Neutrophils # (M) 4.18 k/uL (1.3-7.7); Neutrophils % (M) 72 %; Total Cells Counted 200
--- NOTE | 2021-07-10 19:05 | P.PN ---
Subjective 31-year-old male with history of alcoholism coming in with 3-4 days of abdominal pain. Outpatient lab tests were consistent with pancreatitis of unknown cause. Patient did have an ultrasound which shows maybe gallbladder disease. Patient no longer drinks alcohol. She presents today after injuring of his family doctor for evaluation regarding gallbladder induced pancreatitis. He does have significant pain epigastric right upper quadrant abdominal pain no nausea vomiting diarrhea or other complaints. No fevers; abdominal ultrasound comple kenneth showing a dilated common bile duct, etiology unclear. Patient's pancreatic enzymes and LFTs are elevated. He was admitted to the hospital for an acute pancreatitis. Patient denies any history of pancreatitis in the past. He denies any fever chills or sweats. He does report that his urine is dark. Laboratory reveals a WBC of 6.4, hemoglobin 10.3 and platelet count of 96; sodium 132, potassium 2.8, creatinine 0.65, glucose 11 and lactic acid of 1.1, magnesium 1.4, total bilirubin 2.9 which is down from 3.1 as outpatient, AST/ALT 131/52 which is trending down, amylase is trending down and is down from 437 down to 94, lipase is down to 3959 from 6074 Computed tomography scan abdomen and pelvis completed on 06/30/2021 new hepatomegaly at 19.1 cm versus 16.2 cm previously now with diffuse a low attenuation correlate for hepatic steatosis versus hepatitis. Bile duct borderline distended at 16.3 mm versus 5.6 mm. Gallbladder is also probably hydropic measuring 12.9 x 5.5 cm. No wall thickening or surrounding inflammation seen. Findings may related to fasting state. Abdominal ultrasound completed showing a dilated common bile duct, etiology unclear 07/09/2021 Patient is seen and evaluated in room at bedside; does report improvement in symptoms; no further complaint of nausea/vomiting or abdominal pain Patient has been evaluated by general surgery; given continued uptrending total bilirubin, patient is recommended MRCP MRCP is ordered which cannot be done until Saturday; we will continue to monitor liver enzymes; patient has been placed on a low-fat diet Subjective: 07/10/21 Patient still complaining of from epigastric pain and tenderness although he feels is improving that he wants to continue his liquid diet although he vomited once this morning. Also he has some loose bowel movement. Hemodynamically stable and labs look stable or slightly improved. Hemoglobin is stable at 9.8. Platelet count improved 283. Bilirubin is improving to 2.4. AST is coming down to 62. ALT remains normal at 35. He remains on normal saline at 130 mL/h MRCP was requested but not can be done because its holiday at . Surgery team also on the case. There is no GI coverage today We will continue to monitor Objective - Vital Signs Vital signs: Vital Signs Temp 98.3 F 07/10/21 08:00 Pulse 68 07/10/21 08:00 Resp 18 07/10/21 08:00 BP 119/78 07/10/21 08:00 Pulse Ox 97 07/10/21 08:00 Intake & Output 07/09/21 07/10/21 07/10/21 18:59 06:59 18:59 Intake Total 1500 Balance 1500 Intake: IV 1500 Sodium Chloride 0.9% 1, 1500 000 ml @ 130 mls/hr IV . Q7H42M [facility] Rx#:[id number] Other: Voiding Method Toilet # Voids 3 # Bowel Movements 1 - Exam GENERAL: The patient is alert and oriented x3, not in any acute distress. Well developed, well nourished. HEENT: Pupils are round and equally reacting to light. EOMI. No scleral icterus. No conjunctival pallor. Normocephalic, atraumatic. No pharyngeal erythema. No thyromegaly. CARDIOVASCULAR: S1 and S2 present. No murmurs, rubs, or gallops. PULMONARY: Chest is clear to auscultation, no wheezing or crackles. -ABDOMEN: Soft, epigastric pain and tenderness, no rebound tenderness, nondistended, normoactive bowel sounds. No palpable organomegaly. MUSCULOSKELETAL: No joint swelling or deformity. EXTREMITIES: No cyanosis, clubbing, or pedal edema. NEUROLOGICAL: Gross neurological examination did not reveal any focal deficits. SKIN: No rashes. no petechiae. - Labs CBC & Chem 7: 07/10/21 05:51 07/10/21 05:51 Labs: Abnormal Lab Results - Last 24 Hours (Table) 07/10/21 07/10/21 07/10/21 Range/Units 05:51 05:51 05:51 RBC 2.79 L (4.30-5.90) m/uL Hgb 9.8 L (13.0-17.5) gm/dL Hct 29.9 L (39.0-53.0) % MCV 107.0 H (80.0-100.0) fL Plt Count 139 L (150-450) k/uL Lymphocytes # (Manual) 0.87 L (1.0-4.8) k/uL Sodium 135 L (137-145) mmol/L Chloride 108 H (98-107) mmol/L BUN <2 L (9-20) mg/dL Creatinine 0.51 L (0.66-1.25) mg/dL Glucose 106 H (74-99) mg/dL Calcium 7.8 L (8.4-10.2) mg/dL Total Bilirubin 2.5 H 2.4 H (0.3-1.2) mg/dL Conjugated Bilirubin 1.80 H (0.20-0.40) mg/dL AST 62 H 62 H (14-35) U/L Alkaline Phosphatase 242 H 252 H (41-126) U/L Total Protein 4.8 L 5.1 L (6.2-8.2) g/dL Albumin 2.50 L 2.2 L (3.80-4.90) g/dL Albumin/Globulin Ratio 1.09 L (1.60-3.17) g/dL Assessment and Plan Assessment: Assessment and Plan 1. Acute pancreatitis - We will keep patient on liquid diet; continue with IV fluid resuscitation; we will continue to monitor amylase lipase 2. Elevated LFTs and total bilirubin; etiology unclear; MRCP is pending, improving 3. Dilated common bile duct; no signs of choledocholithiasis; no signs of acute cholecystitis; general surgery consulted and recommendations are reviewed 4. Hypomagnesemia; replaced in ED; we will continue to monitor electrolytes closely 5. EtOH abuse; patient quit drinking 3 weeks ago; we will continue with IV fluids and resume home dose of thiamine and folic acid once oral intake is established 6. History of Depression; continue with home dose of Prozac 10 mg daily DVT prophylaxis; SCDs CODE STATUS; full code
--- NOTE | 2021-07-10 19:44 | P.PN ---
Subjective Progress Note Date: 07/10/21 CHIEF COMPLAINT: Abdominal pain with pancreatitis HISTORY OF PRESENT ILLNESS: The patient is a 31-year-old male admitted for pancreatitis. His nurse reports that he still requires scheduled morphine for his abdominal pain. ROS: No reports of nausea and vomiting. No fevers or chills. No new chest pain. No productive sputum PHYSICAL EXAM: VITAL SIGNS: Reviewed CONSTITUTIONAL: Well developed and in no acute distress. EYES: Conjuctivae sclera icterus. Extraocular movements grossly intact. HEAD, EARS, NOSE, THROAT: Moist buccal mucosa. Head is atraumatic, normocephalic. Hears conversational speech. No nasal drainage. RESPIRATORY: Non-labored respirations and equal bilateral excursions. CARDIOVASCULAR: Regular rate. Regular rhythm. ABDOMEN: No peritonitis. MUSCULOSKELETAL: No gross deformity of the lower extremities noted. No clubbing. No cyanosis. SKIN: Good skin turgor. Well perfused. NEUROLOGIC: Cranial nerves II through XII grossly intact. No focal or lateralizing signs. PSYCH: Appropriate affect. Alert and oriented to person, place and time. CLINICAL LABS: Reviewed. Total bilirubin trending down 4.3 to 2.4. LFTs trending downward. ASSESSMENT: 1. Pancreatitis with history of alcohol use 2. Dilated common bile duct 3. Hyperbilirubinemia PLAN: 1. May benefit from MRCP 2. Diet as tolerated. 3. Follow up with GI as outpatient. Objective - Vital Signs Vital signs: Vital Signs Temp 97.8 F 07/10/21 13:52 Pulse 72 07/10/21 13:52 Resp 18 07/10/21 13:52 BP 140/97 07/10/21 13:52 Pulse Ox 100 07/10/21 13:52 Intake & Output 07/10/21 07/10/21 07/11/21 06:59 18:59 06:59 Intake Total 1500 Balance 1500 Intake: IV 1500 Sodium Chloride 0.9% 1, 1500 000 ml @ 130 mls/hr IV . Q7H42M [facility] Rx#:[id number] Other: # Voids 3 - Labs CBC & Chem 7: 07/10/21 05:51 07/10/21 05:51 Labs: Abnormal Lab Results - Last 24 Hours (Table) 07/10/21 07/10/21 07/10/21 Range/Units 05:51 05:51 05:51 RBC 2.79 L (4.30-5.90) m/uL Hgb 9.8 L (13.0-17.5) gm/dL Hct 29.9 L (39.0-53.0) % MCV 107.0 H (80.0-100.0) fL Plt Count 139 L (150-450) k/uL Lymphocytes # (Manual) 0.87 L (1.0-4.8) k/uL Sodium 135 L (137-145) mmol/L Chloride 108 H (98-107) mmol/L BUN <2 L (9-20) mg/dL Creatinine 0.51 L (0.66-1.25) mg/dL Glucose 106 H (74-99) mg/dL Calcium 7.8 L (8.4-10.2) mg/dL Total Bilirubin 2.5 H 2.4 H (0.3-1.2) mg/dL Conjugated Bilirubin 1.80 H (0.20-0.40) mg/dL AST 62 H 62 H (14-35) U/L Alkaline Phosphatase 242 H 252 H (41-126) U/L Total Protein 4.8 L 5.1 L (6.2-8.2) g/dL Albumin 2.50 L 2.2 L (3.80-4.90) g/dL Albumin/Globulin Ratio 1.09 L (1.60-3.17) g/dL Assessment and Plan (1) Hyperbilirubinemia Current Visit: Yes Status: Acute Code(s): E80.6 - OTHER DISORDERS OF BILIRUBIN METABOLISM SNOMED Code(s): 50977519 (2) Dilated cbd, acquired Current Visit: Yes Status: Acute Code(s): K83.8 - OTHER SPECIFIED DISEASES OF BILIARY TRACT SNOMED Code(s): 0869509355607119 (3) Hepatomegaly Current Visit: Yes Status: Acute Code(s): R16.0 - HEPATOMEGALY, NOT ELSEWH ERE CLASSIFIED SNOMED Code(s): 02515237 (4) Hydrops of gallbladder Current Visit: Yes Status: Acute Code(s): K82.1 - HYDROPS OF GALLBLADDER SNOMED Code(s): 89088656 (5) Acute pancreatitis Current Visit: Yes Status: Acute Code(s): K85.90 - ACUTE PANCREATITIS WITHOUT NECROSIS OR INFECTION, UNSP SNOMED Code(s): 629510328
[2021-07-10] MEDS: HEPARIN SODIUM,PORCINE/PF 5,000 UNIT/0.5 ML SYRINGE SQ SCH (21:49)
[2021-07-11] MEDS: MORPHINE SULFATE 4 MG/ML SYRINGE IV PRN ×6 (01:38→22:13)
[2021-07-11] MEDS: SODIUM CHLORIDE 0.9% 1,000 ML IV SCH ×3 (05:40→20:18)
[2021-07-11] MEDS: HEPARIN SODIUM,PORCINE/PF 5,000 UNIT/0.5 ML SYRINGE SQ SCH ×2 (07:12→20:16)
[2021-07-11] MEDS: PANTOPRAZOLE 40 MG TABLET PO SCH (07:13)
[2021-07-11] MEDS: FLUoxetine HCL 10 MG CAP PO SCH (07:14)
[2021-07-11 09:19] LABS: Basophils # (A) 0.05 X 10*3/uL (0.00-0.10); Basophils % (A) 0.8 %; Eosinophils # (A) 0.13 X 10*3/uL (0.04-0.35); HCT 28.7 % (39.6-50.0); HGB 9.3 g/dL (13.0-17.0); Lymphocytes # (A) 1.83 X 10*3/uL (0.90-5.00); Lymphocytes % (A) 28.7 %; MCH 32.7 pg (27.0-32.0); MCHC 32.4 g/dL (32.0-37.0); MCV 101.1 fL (80.0-97.0); Mean Platelet Volume 11.6 fL (9.5-12.2); Monocytes # (A) 0.85 X 10*3/uL (0.20-1.00); Monocytes % (A) 13.3 %; Neutrophils # (A) 3.45 X 10*3/uL (1.80-7.70); Neutrophils % (A) 54.3 %; Platelet Count 147 X 10*3/uL (140-440); RBC 2.84 X 10*6/uL (4.40-5.60); RDW 14.2 % (11.5-14.5); WBC 6.37 X 10*3/uL (4.50-10.00)
--- NOTE | 2021-07-11 10:56 | P.PN ---
<Miley Sewell - Last Filed: 07/11/21 10:51> Subjective Progress Note Date: 07/11/21 CHIEF COMPLAINT: Abdominal pain HISTORY OF PRESENT ILLNESS: Patient reporting decreased abdominal pain since admission. Pain is located in the epigastric area. He had 2 episodes of vomiting yesterday. He scheduled for MRCP today. He is requiring the IV morphine for pain control. He did tolerate a low-fat diet for dinner last ni ght. He was able to only a small amount because he became full fast. Afebrile. WBC 6.37 hemoglobin 9.3 platelets 147 CMP and lipase for today pending PHYSICAL EXAM: VITAL SIGNS: Reviewed. GENERAL: Well-developed in no acute distress. HEENT: No sclera icterus. Extraocular movements grossly intact. Moist buccal mucosa. Head is atraumatic, normocephalic. ABDOMEN: Soft. Nondistended. Epigastric tenderness NEUROLOGIC: Alert and oriented. Cranial nerves II through XII grossly intact. ASSESSMENT: 1. Acute Pancreatitis with history of alcohol use 2. Dilated common bile duct 3. Hyperbilirubinemia PLAN: -Follow up on MRCP results -Continue to monitor LFTs and lipase -Continue low-fat diet -Follow up with GI service outpatient Physician Finance Broker note has been reviewed by physician. Signing provider agrees with the documented findings, assessment, and plan of care. Objective - Vital Signs Vital signs: Vital Signs Temp 98.3 F 07/11/21 08:00 Pulse 82 07/11/21 08:00 Resp 18 07/11/21 08:00 BP 127/56 07/11/21 08:00 Pulse Ox 95 07/11/21 08:00 Intake & Output 07/10/21 07/11/21 07/11/21 18:59 06:59 18:59 Other: Voiding Method Toilet # Voids 3 2 - Labs CBC & Chem 7: 07/11/21 05:36 07/10/21 05:51 Labs: Abnormal Lab Results - Last 24 Hours (Table) 07/11/21 Range/Units 05:36 RBC 2.84 L (4.40-5.60) X 10*6/uL Hgb 9.3 L (13.0-17.0) g/dL Hct 28.7 L (39.6-50.0) % MCV 101.1 H (80.0-97.0) fL MCH 32.7 H (27.0-32.0) pg Immature Gran # 0.06 H (0.00-0.04) X 10*3/uL <Stefan Lujan - Last Filed: 07/11/21 16:48> Subjective As above. MRCP obtained which does demonstrate evidence of biliary obstruction. No definite stone seen. Likely secondary to previous episodes of pancreatitis. Agree with plans for ERCP. Will follow. Objective - Vital Signs Vital signs: Vital Signs Temp 97.6 F 07/11/21 14:00 Pulse 104 H 07/11/21 14:00 Resp 18 07/11/21 14:00 BP 142/96 07/11/21 14:00 Pulse Ox 96 07/11/21 14:00 Intake & Output 07/10/21 07/11/21 07/11/21 18:59 06:59 18:59 Weight 55.792 kg Other: Voiding Method Toilet # Voids 3 2 - Labs CBC & Chem 7: 07/11/21 05:36 07/11/21 05:36 Labs: Abnormal Lab Results - Last 24 Hours (Table) 07/11/21 07/11/21 Range/Units 05:36 05:36 RBC 2.84 L (4.40-5.60) X 10*6/uL Hgb 9.3 L (13.0-17.0) g/dL Hct 28.7 L (39.6-50.0) % MCV 101.1 H (80.0-97.0) fL MCH 32.7 H (27.0-32.0) pg Immature Gran # 0.06 H (0.00-0.04) X 10*3/uL Potassium 3.4 L (3.5-5.5) mmol/L Anion Gap 2.50 L (4.00-12.00) mmol/L BUN <5.0 L (9.0-27.0) mg/dL Creatinine 0.5 L (0.6-1.5) mg/dL Calcium 7.8 L (8.7-10.3) mg/dL Magnesium 1.3 L (1.5-2.4) mg/dL Total Bilirubin 1.8 H (0.2-1.2) mg/dL AST 59 H (14-35) U/L Alkaline Phosphatase 259 H (41-126) U/L Total Protein 5.1 L (6.2-8.2) g/dL Albumin 2.60 L (3.80-4.90) g/dL Albumin/Globulin Ratio 1.04 L (1.60-3.17) g/dL Lipase 290 H (14-60) U/L
[2021-07-11 12:35] LABS: ALT 40 U/L (10-49); AST 59 U/L (14-35); African American GFR (CKD) 168.5 (60.0-200.0); Albumin/Globulin Ratio 1.04 (1.60-3.17); Alkaline Phosphatase 259 U/L (41-126); Blood Urea Nitrogen <5.0 mg/dL (9.0-27.0); Calcium 7.8 mg/dL (8.7-10.3); Carbon Dioxide 28.5 mmol/L (21.6-31.8); Chloride 107 mmol/L (96-109); Globulin 2.5 g/dL (1.6-3.3); Glucose 90 mg/dL (70-110); Lipase 290 U/L (14-60); Magnesium 1.3 mg/dL (1.5-2.4); Non-African American GFR(CKD) 145.4 (60.0-200.0); Potassium 3.4 mmol/L (3.5-5.5); Sodium 138 mmol/L (135-145); Total Bilirubin 1.8 mg/dL (0.2-1.2); Total Protein 5.1 g/dL (6.2-8.2)
--- NOTE | 2021-07-11 13:44 | P.PN ---
Subjective 31-year-old male with history of alcoholism coming in with 3-4 days of abdominal pain. Outpatient lab tests were consistent with pancreatitis of unknown cause. Patient did have an ultrasound which shows maybe gallbladder disease. Patient no longer drinks alcohol. She presents today after injuring of his family doctor for evaluation regarding gallbladder induced pancreatitis. He does have significant pain epigastric right upper quadrant abdominal pain no nausea vomiting diarrhea or other complaints. No fevers; abdominal ultrasound comple kenneth showing a dilated common bile duct, etiology unclear. Patient's pancreatic enzymes and LFTs are elevated. He was admitted to the hospital for an acute pancreatitis. Patient denies any history of pancreatitis in the past. He denies any fever chills or sweats. He does report that his urine is dark. Laboratory reveals a WBC of 6.4, hemoglobin 10.3 and platelet count of 96; sodium 132, potassium 2.8, creatinine 0.65, glucose 11 and lactic acid of 1.1, magnesium 1.4, total bilirubin 2.9 which is down from 3.1 as outpatient, AST/ALT 131/52 which is trending down, amylase is trending down and is down from 437 down to 94, lipase is down to 3959 from 6074 Computed tomography scan abdomen and pelvis completed on 06/30/2021 new hepatomegaly at 19.1 cm versus 16.2 cm previously now with diffuse a low attenuation correlate for hepatic steatosis versus hepatitis. Bile duct borderline distended at 16.3 mm versus 5.6 mm. Gallbladder is also probably hydropic measuring 12.9 x 5.5 cm. No wall thickening or surrounding inflammation seen. Findings may related to fasting state. Abdominal ultrasound completed showing a dilated common bile duct, etiology unclear 07/09/2021 Patient is seen and evaluated in room at bedside; does report improvement in symptoms; no further complaint of nausea/vomiting or abdominal pain Patient has been evaluated by general surgery; given continued uptrending total bilirubin, patient is recommended MRCP MRCP is ordered which cannot be done until Saturday; we will continue to monitor liver enzymes; patient has been placed on a low-fat diet Subjective: 07/10/21 Patient still complaining of from epigastric pain and tenderness although he feels is improving that he wants to continue his liquid diet although he vomited once this morning. Also he has some loose bowel movement. Hemodynamically stable and labs look stable or slightly improved. Hemoglobin is stable at 9.8. Platelet count improved 283. Bilirubin is improving to 2.4. AST is coming down to 62. ALT remains normal at 35. He remains on normal saline at 130 mL/h MRCP was requested but not can be done because its holiday at . Surgery team also on the case. There is no GI coverage today We will continue to monitor 07/11/21 His abdominal pain is better today and he rated at 6/10. Diet which is no nausea vomiting. He still has soft bowel movement. Distal feels hungry and he wants to continue with diet. Vitals are stable, labs from today showing improvement, hemoglobin stable at 9.3, platelets back to normal at 147. Bilirubin Trending down 1.8. Liver enzymes are stable with AST slightly improved to 59, ALT normal at 40. Lipase is stable at 290 which is a slightly elevated MRCP is pending. GI and surgery team on consult. GI team were consulted today Objective - Vital Signs Vital signs: Vital Signs Temp 98.3 F 07/11/21 08:00 Pulse 82 07/11/21 08:00 Resp 18 07/11/21 08:00 BP 127/56 07/11/21 08:00 Pulse Ox 95 07/11/21 08:00 Intake & Output 07/10/21 07/11/21 07/11/21 18:59 06:59 18:59 Weight 55.792 kg Other: Voiding Method Toilet # Voids 3 2 - Exam GENERAL: The patient is alert and oriented x3, not in any acute distress. Well developed, well nourished. HEENT: Pupils are round and equally reacting to light. EOMI. No scleral icterus. No conjunctival pallor. Normocephalic, atraumatic. No pharyngeal erythema. No thyromegaly. CARDIOVASCULAR: S1 and S2 present. No murmurs, rubs, or gallops. PULMONARY: Chest is clear to auscultation, no wheezing or crackles. -ABDOMEN: Soft, epigastric pain and tenderness, no rebound tenderness, nondistended, normoactive bowel sounds. No palpable organomegaly. MUSCULOSKELETAL: No joint swelling or deformity. EXTREMITIES: No cyanosis, clubbing, or pedal edema. NEUROLOGICAL: Gross neurological examination did not reveal any focal deficits. SKIN: No rashes. no petechiae. - Labs CBC & Chem 7: 07/11/21 05:36 07/11/21 05:36 Labs: Abnormal Lab Results - Last 24 Hours (Table) 07/11/21 07/11/21 Range/Units 05:36 05:36 RBC 2.84 L (4.40-5.60) X 10*6/uL Hgb 9.3 L (13.0-17.0) g/dL Hct 28.7 L (39.6-50.0) % MCV 101.1 H (80.0-97.0) fL MCH 32.7 H (27.0-32.0) pg Immature Gran # 0.06 H (0.00-0.04) X 10*3/uL Potassium 3.4 L (3.5-5.5) mmol/L Anion Gap 2.50 L (4.00-12.00) mmol/L BUN <5.0 L (9.0-27.0) mg/dL Creatinine 0.5 L (0.6-1.5) mg/dL Calcium 7.8 L (8.7-10.3) mg/dL Magnesium 1.3 L (1.5-2.4) mg/dL Total Bilirubin 1.8 H (0.2-1.2) mg/dL AST 59 H (14-35) U/L Alkaline Phosphatase 259 H (41-126) U/L Total Protein 5.1 L (6.2-8.2) g/dL Albumin 2.60 L (3.80-4.90) g/dL Albumin/Globulin Ratio 1.04 L (1.60-3.17) g/dL Lipase 290 H (14-60) U/L Assessment and Plan Assessment: Assessment and Plan 1. Acute pancreatitis - We will keep patient on liquid diet; continue with IV fluid resuscitation; we will continue to monitor amylase lipase 2. Elevated LFTs and total bilirubin; etiology unclear; MRCP is pending, improving 3. Dilated common bile duct; no signs of choledocholithiasis; no signs of acute cholecystitis; general surgery consulted and recommendations are reviewed 4. Hypomagnesemia; replaced in ED; we will continue to monitor electrolytes closely 5. EtOH abuse; patient quit drinking 3 weeks ago; we will continue with IV fluids and resume home dose of thiamine and folic acid once oral intake is established 6. History of Depression; continue with home dose of Prozac 10 mg daily DVT prophylaxis; SCDs CODE STATUS; full code
--- NOTE | 2021-07-11 15:08 | MR ---
EXAMINATION TYPE: MR MRCP DATE OF EXAM: 07/11/2021 COMPARISON: CT abdomen and pelvis June 29, 2021 and older CTs. Complete abdominal ultrasound Septem 2020 HISTORY: CBD Dilation Standard multiplanar, multisequence MRI departmental protocol Multiplanar, multisequence images of the abdomen were acquired without contrast. Thin and thick slice MRCP imaging performed on MRI scanner. FINDINGS: Liver/gallbladder/pancreas/biliary system: Gallbladder is redemonstrated dilated with distended cari ns. No intraluminal stones clearly seen. Liver and pancreas remain normal in size without concerning solid or cystic masses. MRCP images show increasing extrahepatic biliary dilatation with abrupt cut o ff in the pancreatic head measuring up to 16 mm even significantly increased in size from most recent CT. There is new mild to moderate central and left intrahepatic biliary dilatation. Pancreatic duct is not dilated however. Other: The spleen and both adrenal glands remain within normal limits. No concerning renal mass or hy dronephrosis. No biliary dilatation. No intra-abdominal ascites. IMPRESSION: Worsening moderate extrahepatic and developing mild to moderate central and left intrahep atic biliary dilatation. Abrupt cut off in the pancreatic head without obstructing calculus. Ampullar y mass or stricture must be considered. Further investigation with ERCP is advised.
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
[2021-07-12] MEDS: MORPHINE SULFATE 4 MG/ML SYRINGE IV PRN ×6 (02:21→22:16)
[2021-07-12] MEDS: SODIUM CHLORIDE 0.9% 1,000 ML IV SCH ×4 (06:23→22:16)
[2021-07-12] MEDS: HEPARIN SODIUM,PORCINE/PF 5,000 UNIT/0.5 ML SYRINGE SQ SCH ×2 (08:39→20:28)
[2021-07-12] MEDS: FLUoxetine HCL 10 MG CAP PO SCH (08:43)
[2021-07-12] MEDS: PANTOPRAZOLE 40 MG TABLET PO SCH (08:43)
[2021-07-12 10:35] LABS: HCT 35.2 % (39.0-53.0); HGB 11.3 gm/dL (13.0-17.5); MCH 34.3 pg (25.0-35.0); MCHC 32.1 g/dL (31.0-37.0); Macrocytosis Moderate; Mean Platelet Volume 8.6; Platelet Count 229 k/uL (150-450); RBC 3.29 m/uL (4.30-5.90); RDW 14.2 % (11.5-15.5); WBC 7.3 k/uL (3.8-10.6)
[2021-07-12 10:55] LABS: ALT 41 U/L (4-49); AST 70 U/L (17-59); African American GFR (CKD) >90 (>60 ml/min/1.73 sqM); Albumin/Globulin Ratio 0.9; Alkaline Phosphatase 269 U/L (38-126); Anion Gap 7 mmol/L; Blood Urea Nitrogen <2 mg/dL (9-20); Calcium 8.5 mg/dL (8.4-10.2); Carbon Dioxide 26 mmol/L (22-30); Chloride 105 mmol/L (98-107); Globulin 3.5 g/dL; Glucose 106 mg/dL (74-99); Lipase 1202 U/L (23-300); Non-African American GFR(CKD) >90 (>60 ml/min/1.73 sqM); Potassium 3.7 mmol/L (3.5-5.1); Sodium 138 mmol/L (137-145); Total Bilirubin 1.4 mg/dL (0.2-1.3); Total Protein 6.5 g/dL (6.3-8.2)
[2021-07-12 10:56] LABS: Prothrombin Time 10.4 sec (9.0-12.0)
--- NOTE | 2021-07-12 11:11 | P.PN ---
<Miley Sewell - Last Filed: 07/12/21 11:07> Subjective Progress Note Date: 07/12/21 CHIEF COMPLAINT: Abdominal pain HISTORY OF PRESENT ILLNESS: Patient complaining of epigastric abdominal pain. He is still requiring his IV morphine for pain control. Patient reports slight improvement in pain compared to yesterday. He had MRCP completed showing worsening moderate extrahepatic and developing mild to moderate central and left intrahepatic biliary dilation. Abrupt cut off and pancreatic head without obstructing calculus. Ampullary mass or stricture must be considered. Patient evaluated by GI service they have him scheduled for ERCP today. Afebrile. WBC 7.3 hemoglobin 11.3 total bilirubin down from 1.8-1.4 AST 70 ALT 41 alk phos 269 lipase has increased to 1202 PHYSICAL EXAM: VITAL SIGNS: Reviewed. GENERAL: Well-developed in no acute distress. HEENT: No sclera icterus. Extraocular movements grossly intact. Moist buccal mucosa. Head is atraumatic, normocephalic. ABDOMEN: Soft. Nondistended. Epigastric tenderness NEUROLOGIC: Alert and oriented. Cranial nerves II through XII grossly intact. ASSESSMENT: 1. Acute Pancreatitis with history of alcohol use 2. Dilated common bile duct 3. Hyperbilirubinemia PLAN: -Patient scheduled for ERCP with GI service today -Continue to monitor LFTs and lipase -Continue IV fluids -Continue pain medication as needed Phys[facility] note has been reviewed by physician. Signing provider agrees with the documented findings, assessment, and plan of care. Objective - Vital Signs Vital signs: Vital Signs Temp 98.1 F 07/12/21 07:17 Pulse 66 07/12/21 07:17 Resp 18 07/12/21 07:17 BP 148/88 07/12/21 07:17 Pulse Ox 95 07/12/21 07:17 Intake & Output 07/11/21 07/12/21 07/12/21 18:59 06:59 18:59 Intake Total 1300 Balance 1300 Weight 55.792 kg Intake: Intake, IV Titration 1300 Amount Sodium Chloride 0.9% 1, 1300 000 ml @ 130 mls/hr IV . Q7H42M [facility] Rx#:[id number] Other: # Voids 1 2 - Labs CBC & Chem 7: 07/12/21 09:59 07/12/21 09:59 Labs: Abnormal Lab Results - Last 24 Hours (Table) 07/11/21 07/12/21 07/12/21 Range/Units 05:36 09:59 09:59 RBC 3.29 L (4.30-5.90) m/uL Hgb 11.3 L (13.0-17.5) gm/dL Hct 35.2 L (39.0-53.0) % MCV 107.0 H (80.0-100.0) fL Potassium 3.4 L (3.5-5.5) mmol/L Anion Gap 2.50 L (4.00-12.00) mmol/L BUN <5.0 L <2 L (9.0-27.0) mg/dL Creatinine 0.5 L 0.45 L (0.6-1.5) mg/dL Glucose 106 H (74-99) mg/dL Calcium 7.8 L (8.7-10.3) mg/dL Magnesium 1.3 L (1.5-2.4) mg/dL Total Bilirubin 1.8 H 1.4 H (0.2-1.2) mg/dL AST 59 H 70 H (14-35) U/L Alkaline Phosphatase 259 H 269 H (41-126) U/L Total Protein 5.1 L (6.2-8.2) g/dL Albumin 2.60 L 3.0 L (3.80-4.90) g/dL Albumin/Globulin Ratio 1.04 L (1.60-3.17) g/dL Lipase 290 H 1202 H (14-60) U/L <Stefan Lujan - Last Filed: 07/12/21 12:03> Subjective As above. Patient down in the operating room currently being prepared for ERCP. Feels about the same. Await those findings. Objective - Vital Signs Vital signs: Vital Signs Temp 98.1 F 07/12/21 07:17 Pulse 66 07/12/21 07:17 Resp 18 07/12/21 07:17 BP 148/88 07/12/21 07:17 Pulse Ox 95 07/12/21 07:17 Intake & Output 07/11/21 07/12/21 07/12/21 18:59 06:59 18:59 Intake Total 1300 Balance 1300 Weight 55.792 kg Intake: Intake, IV Titration 1300 Amount Sodium Chloride 0.9% 1, 1300 000 ml @ 130 mls/hr IV . Q7H42M [facility] Rx#:[id number] Other: # Voids 1 2 - Labs CBC & Chem 7: 07/12/21 09:59 07/12/21 09:59 Labs: Abnormal Lab Results - Last 24 Hours (Table) 07/11/21 07/12/21 07/12/21 Range/Units 05:36 09:59 09:59 RBC 3.29 L (4.30-5.90) m/uL Hgb 11.3 L (13.0-17.5) gm/dL Hct 35.2 L (39.0-53.0) % MCV 107.0 H (80.0-100.0) fL Potassium 3.4 L (3.5-5.5) mmol/L Anion Gap 2.50 L (4.00-12.00) mmol/L BUN <5.0 L <2 L (9.0-27.0) mg/dL Creatinine 0.5 L 0.45 L (0.6-1.5) mg/dL Glucose 106 H (74-99) mg/dL Calcium 7.8 L (8.7-10.3) mg/dL Magnesium 1.3 L (1.5-2.4) mg/dL Total Bilirubin 1.8 H 1.4 H (0.2-1.2) mg/dL AST 59 H 70 H (14-35) U/L Alkaline Phosphatase 259 H 269 H (41-126) U/L Total Protein 5.1 L (6.2-8.2) g/dL Albumin 2.60 L 3.0 L (3.80-4.90) g/dL Albumin/Globulin Ratio 1.04 L (1.60-3.17) g/dL Lipase 290 H 1202 H (14-60) U/L
[2021-07-12] MEDS ORDERED: LEVOFLOXACIN 500MG-D5W PMX 500 MG in DEXTROSE/WATER 1 100ML.BAG IVPB SCH (11:30)
[2021-07-12] MEDS ORDERED: INDOMETHACIN 50MG SUPPOSITORY RECTAL ONE (11:30)
[2021-07-12] MEDS ORDERED: IV FLUID CONTINUATION 500 ML IV ONE (12:00)
[2021-07-12] MEDS ORDERED: LIDOCAINE 1% INJ 10MG/ML (20 ML MDV) ONE (12:02)
[2021-07-12] MEDS ORDERED: MIDAZOLAM 2 MG/2 ML VIAL ONE (12:02)
[2021-07-12] MEDS ORDERED: PROPOFOL 10 MG/ML 20 ML VIAL IV ONE (12:02)
[2021-07-12] MEDS ORDERED: LABETALOL 5 MG/ML VIAL MDV ONE (12:02)
[2021-07-12] MEDS ORDERED: WATER FOR INJECTION, STERILE 10 ML VIAL IV ONE (12:02)
[2021-07-12] MEDS ORDERED: KETAMINE 10 MG/ML 20 ML VIAL ONE (12:02)
[2021-07-12] MEDS ORDERED: IOPAMIDOL-300 50ML BTL MISCELLANE ONE (12:20)
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
--- NOTE | 2021-07-12 12:49 | P.PCN ---
Date of Procedure: 07/12/21 Procedure(s) Performed: Brief history: Patient is a 31 year-old pleasant white male scheduled for an ERCP as part of evaluation of abdominal pain and elevated serum transaminases, jaundice an acute pancreatitis for which she was on aspirin 5 days ago. He had an MRCP done that showed dilated extrahepatic biliary ducts and some dilation of the pancreatic duct with abrupt cutoff and possibility of ampullary neoplasm was a stricture could not be excluded. Procedure performed: ERCP Preoperative diagnoses: Elevated LFTs, recent episode of acute pancreatitis, dilated CBD to rule out CBC stricture IV sedation per anesthesia: Procedure: After informed consent was obtained from the patient and after the risks benefits and complications including bleeding perforation and pancreatitis explained in detail the patient was brought into the endoscopy unit. The patient was placed in prone position and IV conscious sedation was administered by anesthesia under continuous monitoring. The Olympus side-viewing duodenoscope was then inserted into the mouth and esophagus intubated without any difficulty. The scope was gradually advanced into the stomach and duodenum. The major papilla was identified without any difficulty. Initial cannulation resulted in [place] opacification of the pancreas and that that appeared dilated measuring about 5 mm in diameter but no strictures or filling defect identified. Subsequently using the guidewire technique I was able to cannulate the common bile duct which appeared very dilated measuring at least 1.5-2 cm in diameter with some smooth tapering in the distal common bile duct with free flowing bile noted. No obvious distal common bile duct stricture noted. No filling defects were seen. At this time the procedure was terminated and the patient tolerated the procedure well. Impression: Dilated common bile duct measuring 1.5 cm in diameter with no obvious filling defects or strictures noted. There was some smooth tapering noted in the distal common bile duct but no obvious stricture identified. Slightly dilated pancreatic duct with no filling defects or strictures Recommendations: The findings of this examination were discussed with the patient . We will continue to monitor LFTs closely. Advance diet as tolerated.
--- NOTE | 2021-07-12 13:07 | FL ---
EXAMINATION TYPE: FL ERCP HISTORY: Fluoroscopy time Impression: 1. Fluoroscopy support provided to the referring physician. 24 seconds provided of fluoroscopy.
[2021-07-13] MEDS: MORPHINE SULFATE 4 MG/ML SYRINGE IV PRN ×5 (02:16→20:32)
[2021-07-13] MEDS: HEPARIN SODIUM,PORCINE/PF 5,000 UNIT/0.5 ML SYRINGE SQ SCH ×2 (09:27→20:32)
[2021-07-13] MEDS: SODIUM CHLORIDE 0.9% 1,000 ML IV SCH ×2 (09:27→21:40)
[2021-07-13] MEDS: PANTOPRAZOLE 40 MG TABLET PO SCH (09:27)
[2021-07-13] MEDS: FLUoxetine HCL 10 MG CAP PO SCH (09:27)
[2021-07-13 12:05] LABS: ALT 30 U/L (4-49); AST 48 U/L (17-59); African American GFR (CKD) >90 (>60 ml/min/1.73 sqM); Albumin 2.4 g/dL (3.5-5.0); Albumin/Globulin Ratio 0.8; Alkaline Phosphatase 197 U/L (38-126); Anion Gap 4 mmol/L; Blood Urea Nitrogen <2 mg/dL (9-20); Calcium 7.9 mg/dL (8.4-10.2); Carbon Dioxide 30 mmol/L (22-30); Chloride 104 mmol/L (98-107); Globulin 3.1 g/dL; Glucose 93 mg/dL (74-99); Lipase 1024 U/L (23-300); Non-African American GFR(CKD) >90 (>60 ml/min/1.73 sqM); Potassium 3.8 mmol/L (3.5-5.1); Sodium 138 mmol/L (137-145); Total Protein 5.5 g/dL (6.3-8.2)
--- NOTE | 2021-07-13 12:13 | P.PN ---
<Miley Sewell - Last Filed: 07/13/21 12:03> Subjective Progress Note Date: 07/13/21 CHIEF COMPLAINT: Abdominal pain HISTORY OF PRESENT ILLNESS: Patient reports that his epigastric abdominal pain is showing improvement. He reports not needing the IV morphine as frequently. Patient status post ERCP results showing a dilated common bile duct measuring 1.5 cm in diameter with no obvious filling defect or stricture noted. There was some smooth tapering noted in the distal common bile duct but no obvious stricture identified. Slightly dilated pancreatic duct with no filling defects or strictures. Patient was supposed to be on a low-fat diet. He did not receive his low-fat diet. He only ate his applesauce. He denies any nausea or vomiting. His labs are pending. Afebrile. Patient would like to be discharged home. PHYSICAL EXAM: VITAL SIGNS: Reviewed. GENERAL: Well-developed in no acute distress. HEENT: No sclera icterus. Extraocular movements grossly intact. Moist buccal mucosa. Head is atraumatic, normocephalic. ABDOMEN: Soft. Nondistended. Epigastric tenderness NEUROLOGIC: Alert and oriented. Cranial nerves II through XII grossly intact. ASSESSMENT: 1. Acute Pancreatitis with history of alcohol use 2. Dilated common bile duct 3. Hyperbilirubinemia PLAN: -Continue low-fat diet -Continue to monitor LFTs and lipase -Continue IV fluids -Continue pain medication as needed -Patient can be discharged for surgical standpoint when medically cleared [facility] Manager note has been reviewed by physician. Signing provider agrees with the documented findings, assessment, and plan of care. Objective - Vital Signs Vital signs: Vital Signs Temp 98.0 F 07/13/21 07:30 Pulse 80 07/13/21 07:30 Resp 16 07/13/21 07:30 BP 167/99 07/13/21 07:30 Pulse Ox 95 07/13/21 07:30 Intake & Output 07/12/21 07/13/21 07/13/21 18:59 06:59 18:59 Intake Total 450 Balance 450 Weight 55.792 kg Intake: IV 450 Other: # Voids 2 4 - Labs CBC & Chem 7: 07/12/21 09:59 07/12/21 09:59 <Stefan Lujan - Last Filed: 07/13/21 16:33> Subjective As above. Patient's pain has improved. ERCP results noted. He would like to go home this evening which seems reasonable. We'll sign off. Please call if needed. Follow-up with GI postdischarge. Objective - Vital Signs Vital signs: Vital Signs Temp 97.4 F L 07/13/21 14:12 Pulse 64 07/13/21 14:12 Resp 16 07/13/21 14:12 BP 157/98 07/13/21 14:12 Pulse Ox 98 07/13/21 14:12 Intake & Output 07/12/21 07/13/21 07/13/21 18:59 06:59 18:59 Intake Total 450 Balance 450 Weight 55.792 kg 55.792 kg Intake: IV 450 Other: # Voids 2 4 3 - Labs CBC & Chem 7: 07/12/21 09:59 07/13/21 11:00 Labs: Abnormal Lab Results - Last 24 Hours (Table) 07/13/21 Range/Units 11:00 BUN <2 L (9-20) mg/dL Creatinine 0.46 L (0.66-1.25) mg/dL Calcium 7.9 L (8.4-10.2) mg/dL Alkaline Phosphatase 197 H (38-126) U/L Total Protein 5.5 L (6.3-8.2) g/dL Albumin 2.4 L (3.5-5.0) g/dL Lipase 1024 H (23-300) U/L
--- NOTE | 2021-07-13 12:38 | P.PN ---
Subjective Progress Note Date: 07/13/21 Principal diagnosis: pancreatitis 31-year-old who was admitted with acute alcoholic pancreatitis who was noted tohave worsening moderate extrahepatic and developing mild to moderate central and left intrahepatic biliary dilation with abrupt cutoff in the pancreatic head without obstructing calculus seen on MRCP. Patient underwent an ERCP yesterday with findings of a dilated common bile duct measuring 1.5 cm in diameter with no obvious filling defects or strictures noted. There was some smooth tapering noted in the distal common bile duct but no obvious stricture identified. Slightly dilated pancreatic duct with no filling defects or strictures. LFTs continued to trend down, total bilirubin 1.0, AST 48, ALT 30, alk phos 197, lipase 1024. Patient states he is feeling somewhat better today, pain is improving. He denies any nausea or vomiting. He is tolerating a low-fat diet. He had a bowel movement today. Objective - Vital Signs Vital signs: Vital Signs Temp 98.0 F 07/13/21 07:30 Pulse 80 07/13/21 07:30 Resp 16 07/13/21 07:30 BP 167/99 07/13/21 07:30 Pulse Ox 95 07/13/21 07:30 Intake & Output 07/12/21 07/13/21 07/13/21 18:59 06:59 18:59 Intake Total 450 Balance 450 Weight 55.792 kg Intake: IV 450 Other: # Voids 2 4 - Exam General appearance: The patient is alert, oriented, appears in no acute distress. HET: Head is normocephalic and atraumatic. Conjunctiva pink. Sclera anicteric. Neck: Supple without lymphadenopathy. Abdomen: Soft, epigastric tenderness, nondistended with bowel sounds. No guarding or rigidity. Extremities: Normal skin color and turgor. No pedal edema Skin: No rashes, no jaundice Neurological: No focal deficits. Alert and oriented 3. - Labs CBC & Chem 7: 07/12/21 09:59 07/13/21 11:00 Labs: Abnormal Lab Results - Last 24 Hours (Table) 07/12/21 07/12/21 Range/Units 09:59 09:59 RBC 3.29 L (4.30-5.90) m/uL Hgb 11.3 L (13.0-17.5) gm/dL Hct 35.2 L (39.0-53.0) % MCV 107.0 H (80.0-100.0) fL BUN <2 L (9-20) mg/dL Creatinine 0.45 L (0.66-1.25) mg/dL Glucose 106 H (74-99) mg/dL Total Bilirubin 1.4 H (0.2-1.3) mg/dL AST 70 H (17-59) U/L Alkaline Phosphatase 269 H (38-126) U/L Albumin 3.0 L (3.5-5.0) g/dL Lipase 1202 H (23-300) U/L Assessment and Plan (1) Acute pancreatitis Narrative/Plan: 31-year-old male who presented to the emergency department 5 days ago with complaints of right upper quadrant and epigastric pain. Has a history of significant alcohol abuse per last 15 years duration, quitting approximately 3 weeks ago. He has had outpatient CT of the abdomen showing some mild CBD dilation, he underwent an ultrasound of the abdomen also showing increased CBD dilation of 1.1 cm. He was noted to have elevated LFTs, elevation in his lipase on admission consistent with alcoholic pancreatitis. Denies any previous history of pancreatitis. There is been some concern with the dilated CBD, he underwent an MRCP which showed worsening moderate extrahepatic and developing mild to moderate central and left intrahepatic biliary dilation. Abrupt cutoff in the pancreatic head without obstructing calculus. Ampullary mass or stricture must be considered. Further investigation with ERCP is advised. Patient's lipase and LFTs continue to trend down. Symptoms have been improving. We'll need to consider proceeding with ERCP, will repeat labs in the morning with further recommendations to follow. Current Visit: Yes Status: Acute Code(s): K85.90 - ACUTE PANCREATITIS WITHOUT NECROSIS OR INFECTION, UNSP SNOMED Code(s): 884094975 (2) Dilation of common bile duct Narrative/Plan: Patient is status post ERCP with no stricture, filling defects, or stones. Current Visit: Yes Status: Acute Code(s): K83.8 - OTHER SPECIFIED DISEASES OF BILIARY TRACT SNOMED Code(s): 035273251 Plan: 1. Continue symptomatic and supportive care 2. Low-fat diet 3. Repeat CMP, lipase in the morning 4. Patient is status post ERCP 5. Pain medication as needed 6. Antiemetics as needed Thank you for this consultation, we will continue to follow. Dr. Alissa Martin I agree with the dictator's note, documented as a scribe by Chery Street.
--- NOTE | 2021-07-13 12:54 | P.PN ---
Subjective 31-year-old male with history of alcoholism coming in with 3-4 days of abdominal pain. Outpatient lab tests were consistent with pancreatitis of unknown cause. Patient did have an ultrasound which shows maybe gallbladder disease. Patient no longer drinks alcohol. She presents today after injuring of his family doctor for evaluation regarding gallbladder induced pancreatitis. He does have significant pain epigastric right upper quadrant abdominal pain no nausea vomiting diarrhea or other complaints. No fevers; abdominal ultrasound comple kenneth showing a dilated common bile duct, etiology unclear. Patient's pancreatic enzymes and LFTs are elevated. He was admitted to the hospital for an acute pancreatitis. Patient denies any history of pancreatitis in the past. He denies any fever chills or sweats. He does report that his urine is dark. Laboratory reveals a WBC of 6.4, hemoglobin 10.3 and platelet count of 96; sodium 132, potassium 2.8, creatinine 0.65, glucose 11 and lactic acid of 1.1, magnesium 1.4, total bilirubin 2.9 which is down from 3.1 as outpatient, AST/ALT 131/52 which is trending down, amylase is trending down and is down from 437 down to 94, lipase is down to 3959 from 6074 Computed tomography scan abdomen and pelvis completed on 06/30/2021 new hepatomegaly at 19.1 cm versus 16.2 cm previously now with diffuse a low attenuation correlate for hepatic steatosis versus hepatitis. Bile duct borderline distended at 16.3 mm versus 5.6 mm. Gallbladder is also probably hydropic measuring 12.9 x 5.5 cm. No wall thickening or surrounding inflammation seen. Findings may related to fasting state. Abdominal ultrasound completed showing a dilated common bile duct, etiology unclear 07/09/2021 Patient is seen and evaluated in room at bedside; does report improvement in symptoms; no further complaint of nausea/vomiting or abdominal pain Patient has been evaluated by general surgery; given continued uptrending total bilirubin, patient is recommended MRCP MRCP is ordered which cannot be done until Saturday; we will continue to monitor liver enzymes; patient has been placed on a low-fat diet Subjective: 07/10/21 Patient still complaining of from epigastric pain and tenderness although he feels is improving that he wants to continue his liquid diet although he vomited once this morning. Also he has some loose bowel movement. Hemodynamically stable and labs look stable or slightly improved. Hemoglobin is stable at 9.8. Platelet count improved 283. Bilirubin is improving to 2.4. AST is coming down to 62. ALT remains normal at 35. He remains on normal saline at 130 mL/h MRCP was requested but not can be done because its holiday at . Surgery team also on the case. There is no GI coverage today We will continue to monitor 07/11/21 His abdominal pain is better today and he rated at 6/10. Diet which is no nausea vomiting. He still has soft bowel movement. Distal feels hungry and he wants to continue with diet. Vitals are stable, labs from today showing improvement, hemoglobin stable at 9.3, platelets back to normal at 147. Bilirubin Trending down 1.8. Liver enzymes are stable with AST slightly improved to 59, ALT normal at 40. Lipase is stable at 290 which is a slightly elevated MRCP is pending. GI and surgery team on consult. GI team were consulted today 07/12/2021 Patient clinically is stable, his walking in the room comfortably. His pain and upcoming similar to yesterday's 04/13, he had to regular bowel movement today. No nausea vomiting and his been nothing by mouth today for her procedure. Hemodynamically he is stable. His hemoglobin improved today to 11.3, platelet normal 229, Derek is trending down at 1.4, AST slightly up at 70, normal ALT at 41 and lipase actually went up to 1202. MRCP showed dilated bile ducts and pancreatic ducts with sudden obstruction and the mass is suspected therefore patient is scheduled for ERCP today 07/13/2021 Patient abdominal pain is a stable or slightly improving, his wound and to resume regular diet, low fiber diet. Vomiting, he has regular bowel movement. Are stable. BMP is a stable, liver enzymes are not elevated. Lipase is slightly trending down to 1024. He is status post ERCP yesterday for dilated bile ducts, final results are still pending. GI team however closely following the patient Past case with surgery team today, patient is cleared from their standpoint to go home. Objective - Vital Signs Vital signs: Vital Signs Temp 98.0 F 07/13/21 07:30 Pulse 80 07/13/21 07:30 Resp 16 07/13/21 07:30 BP 167/99 07/13/21 07:30 Pulse Ox 95 07/13/21 07:30 Intake & Output 07/12/21 07/13/21 07/13/21 18:59 06:59 18:59 Intake Total 450 Balance 450 Weight 55.792 kg Intake: IV 450 Other: # Voids 2 4 - Exam GENERAL: The patient is alert and oriented x3, not in any acute distress. Well developed, well nourished. HEENT: Pupils are round and equally reacting to light. EOMI. No scleral icterus. No conjunctival pallor. Normocephalic, atraumatic. No pharyngeal erythema. No thyromegaly. CARDIOVASCULAR: S1 and S2 present. No murmurs, rubs, or gallops. PULMONARY: Chest is clear to auscultation, no wheezing or crackles. -ABDOMEN: Soft, epigastric pain and tenderness, no rebound tenderness, nondistended, normoactive bowel sounds. No palpable organomegaly. MUSCULOSKELETAL: No joint swelling or deformity. EXTREMITIES: No cyanosis, clubbing, or pedal edema. NEUROLOGICAL: Gross neurological examination did not reveal any focal deficits. SKIN: No rashes. no petechiae. - Labs CBC & Chem 7: 07/12/21 09:59 07/13/21 11:00 Labs: Abnormal Lab Results - Last 24 Hours (Table) 07/13/21 Range/Units 11:00 BUN <2 L (9-20) mg/dL Creatinine 0.46 L (0.66-1.25) mg/dL Calcium 7.9 L (8.4-10.2) mg/dL Alkaline Phosphatase 197 H (38-126) U/L Total Protein 5.5 L (6.3-8.2) g/dL Albumin 2.4 L (3.5-5.0) g/dL Lipase 1024 H (23-300) U/L Assessment and Plan Assessment: Assessment and Plan 1. Acute pancreatitis, improvement - We will keep patient on liquid diet; continue with IV fluid resuscitation; we will continue to monitor amylase lipase 2. Elevated LFTs and total bilirubin; etiology unclear; MRCP is worsening moderate extrahepatic and developed mild to moderate central and left intrahepat ic biliary dilatation. Abrupt cutoff in the pancreatic head without obstruction calculus. Ampullary mass or stricture must be considered. ERCP is pending results 3. History of Depression; continue with home dose of Prozac 10 mg daily 4. Hypomagnesemia; replaced in ED; we will continue to monitor electrolytes closely 5. EtOH abuse; patient quit drinking 3 weeks ago; we will continue with IV fluids and resume home dose of thiamine and folic acid once oral intake is established DVT prophylaxis; SCDs CODE STATUS; full code
[2021-07-13] MEDS ORDERED: IV FLUID CONTINUATION 150 ML IV ONE (14:11)
[2021-07-13] MEDS ORDERED: fentaNYL (PF) 50 MCG/ML 2 ML AMP ONE (14:25)
[2021-07-13] MEDS ORDERED: methylPREDNISolone ACETATE 40 MG/ML 1 ML VIAL ONE (14:25)
[2021-07-13] MEDS ORDERED: MIDAZOLAM 2 MG/2 ML VIAL ONE (14:25)
[2021-07-13] MEDS ORDERED: ROPIVACAINE 5MG/ML 20ML VIAL ONE (14:25)
[2021-07-13] MEDS ORDERED: IOPAMIDOL M200 10 ML VIAL ONE (14:25)
--- NOTE | 2021-07-13 14:47 | P.PCN ---
Date of Procedure: 07/13/21 Procedure(s) Performed: PREOPERATIVE DIAGNOSIS: acute pancratitis with intractable abdominal pain. POSTOPERATIVE DIAGNOSIS: acute pancratitis with intractable abdominal pain. PROCEDURE: celiac plexus block under fluoroscopy guidance (fluoroscopy images available in the audiology Department ) ANESTHESIA: Moderate sedation with Versed 2 mg and Fentanyl 100 Mcg EBL: Minimal PROCEDURE INDICATION: The patient has a history of abdominal pain. PROCEDURE DESCRIPTION: The patient was seen and identified in the preoperative area. Risks, benefits, complications, and alternatives were discussed with the patient. The patient agreed to proceed with the procedure and signed the consent. IV was started, and vital signs were stable. Patient was taken to the OR and time out was completed.The patient was placed in the prone position on procedure table and a pillow was placed under the abdomen to reduce lumbar lordosis. The lumbosacral area was prepped and draped in the usual sterile fashion. Critical pause was taken. Vital signs were closely monitored during the procedure. Conscious sedation was used during the procedure to decrease patients anxiety. . Using anterior-posterior fluoroscopy, the L1 spinous process and vertebral body were identified. Then, the fluoroscope was turned obliquely until the transverse process of L1 vertebra was totally behind the L1 vertebral body. Skin was then marked and infiltrated with Lidocaine 1% subcutaneously with a 25-guage needle at the level of the L1 vertebral body. Subsequently, a 22-guage 5-inch /7-inch spinal needles was inserted and advanced toward anterior side of the L1 vertebral body under oblique fluoroscopic guidance and while keeping a ``tunnel view of the needle. Subsequently, 3 ml of the water soluble dye Omnipaque was injected under life fluoroscopy to confirm needle position. The spread of the dye along the anterior side of the L1 vertebral body was verified with AP and latter fluoroscopy. After satisfactory positioning of the needle and negative aspiration for CSF, blood, or any other contents, a total of 15 mL of 0.5% preservative-free Ropivacaine mixed with 80 mg Depo-Medrol was injected with 5 ml increments and intermittent aspiration. Washout of the dye was seen and the needle was then withdrawn intact...At the end of the procedure, the operated areas were cleaned. Band-Aids were applied. COMPLICATIONS: None DISPOSITION / PLANS: The patient was placed in a supine position and transferred to the recovery area in a stable condition for observation and was discharged from the recovery room after meeting discharge criteria.Home discharge instructions given to the patient by the staff.The patient was reexamined prior to discharge. We will schedule a neurolytic block in one week if patient has more than 50% pain relief from this block.
--- NOTE | 2021-07-13 15:59 | FL ---
EXAMINATION TYPE: FL guided pain mgmt statistic DATE OF EXAM: 07/13/2021 HISTORY: Fluoroscopy time 8 seconds of fluoroscopy provided. IMPRESSION: 1. Fluoroscopy time.
[2021-07-13] MEDS: lisinopriL 10 MG TAB PO SCH (20:32)
[2021-07-14] MEDS: SODIUM CHLORIDE 0.9% 1,000 ML IV SCH ×3 (00:18→11:18)
[2021-07-14] MEDS: MORPHINE SULFATE 4 MG/ML SYRINGE IV PRN ×2 (00:41→06:25)
[2021-07-14 04:08] VITALS: RESP 16
[2021-07-14] MEDS: FLUoxetine HCL 10 MG CAP PO SCH (08:42)
[2021-07-14] MEDS: HEPARIN SODIUM,PORCINE/PF 5,000 UNIT/0.5 ML SYRINGE SQ SCH (08:42)
[2021-07-14] MEDS: lisinopriL 10 MG TAB PO SCH (08:42)
[2021-07-14] MEDS: PANTOPRAZOLE 40 MG TABLET PO SCH (08:42)
[2021-07-14 09:20] VITALS: BP 143/84; PULSE 63; TEMP 98
--- NOTE | 2021-07-14 12:39 | P.PN ---
Subjective Progress Note Date: 07/14/21 Principal diagnosis: pancreatitis 31-year-old who was admitted with acute alcoholic pancreatitis who was noted tohave worsening moderate extrahepatic and developing mild to moderate central and left intrahepatic biliary dilation with abrupt cutoff in the pancreatic head without obstructing calculus seen on MRCP. Patient underwent an ERCP yesterday with findings of a dilated common bile duct measuring 1.5 cm in diameter with no obvious filling defects or strictures noted. There was some smooth tapering noted in the distal common bile duct but no obvious stricture identified. Slightly dilated pancreatic duct with no filling defects or strictures. Patient is seen and examined up in about the room. He states his abdominal pain has improved. Yesterday he underwent celiac plexus block and states pain is significantly improved. He has been tolerating a diet. Denies any nausea or vomiting. Has been having normal bowel movements. Objective - Vital Signs Vital signs: Vital Signs Temp 98.0 F 07/14/21 08:00 Pulse 63 07/14/21 08:00 Resp 16 07/14/21 08:00 BP 143/84 07/14/21 08:00 Pulse Ox 95 07/14/21 08:00 Intake & Output 07/13/21 07/14/21 07/14/21 18:59 06:59 18:59 Weight 55.792 kg Other: # Voids 3 3 - Exam General appearance: The patient is alert, oriented, appears in no acute distress. HET: Head is normocephalic and atraumatic. Conjunctiva pink. Sclera anicteric. Neck: Supple without lymphadenopathy. Abdomen: Soft, nontender, nondistended with bowel sounds. No guarding or rigidity. Extremities: Normal skin color and turgor. No pedal edema Skin: No rashes, no jaundice Neurological: No focal deficits. Alert and oriented 3. - Labs CBC & Chem 7: 07/12/21 09:59 07/13/21 11:00 Labs: Abnormal Lab Results - Last 24 Hours (Table) 07/13/21 Range/Units 11:00 BUN <2 L (9-20) mg/dL Creatinine 0.46 L (0.66-1.25) mg/dL Calcium 7.9 L (8.4-10.2) mg/dL Alkaline Phosphatase 197 H (38-126) U/L Total Protein 5.5 L (6.3-8.2) g/dL Albumin 2.4 L (3.5-5.0) g/dL Lipase 1024 H (23-300) U/L Assessment and Plan (1) Acute pancreatitis Narrative/Plan: 31-year-old male who presented to the emergency department 5 days ago with complaints of right upper quadrant and epigastric pain. Has a history of significant alcohol abuse per last 15 years duration, quitting approximately 3 weeks ago. He has had outpatient CT of the abdomen showing some mild CBD dilation, he underwent an ultrasound of the abdomen also showing increased CBD dilation of 1.1 cm. He was noted to have elevated LFTs, elevation in his lipase on admission consistent with alcoholic pancreatitis. Denies any previous history of pancreatitis. There is been some concern with the dilated CBD, he underwent an MRCP which showed worsening moderate extrahepatic and developing mild to moderate central and left intrahepatic biliary dilation. Abrupt cutoff in the pancreatic head without obstructing calculus. Ampullary mass or stricture must be considered. Further investigation with ERCP is advised. Patient's lipase and LFTs continue to trend down. Symptoms have been improving. We'll need to consider proceeding with ERCP, will repeat labs in the morning with further recommendations to follow. Current Visit: Yes Status: Acute Code(s): K85.90 - ACUTE PANCREATITIS WITHOUT NECROSIS OR INFECTION, UNSP SNOMED Code(s): 577017491 (2) Dilation of common bile duct Narrative/Plan: Patient is status post ERCP with no stricture, filling defects, or stones. Current Visit: Yes Status: Acute Code(s): K83.8 - OTHER SPECIFIED DISEASES OF BILIARY TRACT SNOMED Code(s): 033804785 Plan: 1. Continue symptomatic and supportive care 2. Low-fat diet 3. Patient is status post ERCP 4. Pain medication as needed 5. Antiemetics as needed Thank you for this consultation, patient is cleared for discharge from gastroenterology. We will sign off at this time. Thank you for allowing us to participate in the care of the patient, the GI service will sign off, gastroenterology will not be available at the hospital this weekend and if further evaluation by gastroenterology is required the patient will need transfer as per the primary team's discretion. Dr. Alissa Martin I agree with the dictator's note, documented as a scribe by Cehry Street.
[2021-07-14] MEDS ORDERED: ACETAMINOPHEN TAB 325 MG TAB PO STA (12:42)
--- NOTE | 2021-07-14 23:45 | P.DS ---
Providers Date of admission: 07/06/21 23:45 Attending physician: Carl Monreal Consults: 07/06/21 23:46 Consult Physician Routine Consulting Provider: Stefan Lujan Consult Reason/Comments: pancreatitis,?GB? Do you want consulting provider notified?: Yes 07/11/21 12:23 Consult Physician Urgent Consulting Provider: Peg Martin Consult Reason/Comments: pancreatitis with elevated liver enz Do you want consulting provider notified?: Yes Primary care physician: Shahnaz Núñez [facility] Course: Diagnoses: 1. Acute pancreatitis, secondary to alcohol abuse. improvement 2. Elevated LFTs and total bilirubin; MRCP is worsening moderate extrahepatic and developed mild to moderate central and left intrahepatic biliary dilatation. Abrupt cutoff in the pancreatic head without obstruction calculus. Ampullary mass or stricture must be considered. ERCP is done by GI team after that patient was cleared for discharge 3. Epigastric pain and tenderness secondary to pancreatitis, status post celiac nerve block, pain significantly improved prior to discharge, he agreed to Tylenol only for pain management on discharge 4. Hypomagnesemia; replaced 5. EtOH abuse; patient is counseled to quit and he agrees 6. History of Depression; continue with home dose of Prozac 10 mg daily Hospital course 31-year-old male with history of alcoholism coming in with 3-4 days of abdominal pain. which is consistent with pancreatitis . He had elevated lipase and mildly elevated liver enzymes and bilirubin which is responded to fluid therapy and bowel rest and pain management, later on diet was advanced and tolerated by the patient prior to discharge However there wasn't evidence of dilated biliary ducts per MRCP, therefore his been evaluated by surgery and GI team, patient underwent ERCP test by GI team, Patient underwent an ERCP yesterday with findings of a dilated common bile duct measuring 1.5 cm in diameter with no obvious filling defects or strictures noted. There was some smooth tapering noted in the distal common bile duct but no obvious stricture identified. Slightly dilated pancreatic duct with no filling defects or strictures. after the procedure Dr. Martin GI service cleared the patient for discharge today. Also he underwent celiac plexus nerve block by anesthesia team, his epigastric pain significantly improved after the procedure, his pain is controlled with Tylenol only upon discharge. He tolerates diet well He was walking in the room really with no difficulty. Denies any other symptoms. No chest pain or dyspnea. No change in urine habits. No fever Patient was cleared for discharge by all consultants including surgery, GI Problems and management plan were discussed with the patient and he verbalized understanding and acceptance Patient was found stable and can be discharged home however he needs follow-up as an outpatient. Patient was instructed to follow up with PCP Dr. Cardona within one week and patient agrees Patient was Instructed to follow up with Dr. Martin in [address] johnson surgeon in 2 weeks as well, patient agrees and he wants to make his own appointments Physical exam Gen: patient is a AAOx3, no distress CVS: S1-S2, RRR, no murmur Lungs: B/L CTA, no wheezing Abdomen: soft, no distention, no tenderness, positive bowel sounds Extremity: no leg edema or induration Time spent more than 35 minutes Patient Condition at Discharge: Serious Plan - Discharge Summary Discharge Rx Participant: No New Discharge Prescriptions: New amLODIPine [Norvasc] 5 mg PO DAILY #30 tab Pantoprazole [Protonix] 40 mg PO DAILY #30 tab Acetaminophen [Tylenol] 325 mg PO Q6H PRN 3 Days #12 tab PRN Reason: Pain Continue Thiamine [Vitamin B-1] 100 mg PO DAILY Cyanocobalamin (Vitamin B-12) [Vitamin B-12] 1,000 mcg PO DAILY FLUoxetine HCL [PROzac] 20 mg PO DAILY Folate 1 tab PO DAILY Ascorbic Acid [Vitamin C] 1,000 mg PO DAILY FLUoxetine HCL [PROzac] 10 mg PO DAILY Discharge Medication List Ascorbic Acid [Vitamin C] 1,000 mg PO DAILY 07/07/21 [History] Cyanocobalamin (Vitamin B-12) [Vitamin B-12] 1,000 mcg PO DAILY 07/07/21 [History] FLUoxetine HCL [PROzac] 10 mg PO DAILY 07/07/21 [History] FLUoxetine HCL [PROzac] 20 mg PO DAILY 07/07/21 [History] Folate 1 tab PO DAILY 07/07/21 [History] Thiamine [Vitamin B-1] 100 mg PO DAILY 07/07/21 [History] Acetaminophen [Tylenol] 325 mg PO Q6H PRN 3 Days #12 tab 07/14/21 [Rx] Pantoprazole [Protonix] 40 mg PO DAILY #30 tab 07/14/21 [Rx] amLODIPine [Norvasc] 5 mg PO DAILY #30 tab 07/14/21 [Rx] Follow up Appointment(s)/Referral(s): Shahnaz Cardona III, MD [Primary Care Provider] - 1-2 days Peg Martin MD [STAFF PHYSICIAN] - 2 Weeks Stefan Lujan MD [Medical Doctor] - 2 Weeks Patient Instructions/Handouts: Pancreatitis (DC) Activity/Diet/Wound Care/Special Instructions: low fiber diet activity is restricted till you see your doctor Discharge/Stand Alone Forms: Anes Pain/[place] Instructions Discharge Disposition: HOME SELF-CARE
== END 2021-07-14 14:00 | disposition home or self-care (01) | DRG 439 ==
LOC: EC 19:32 → SUPCPDRO 19:32 → 5NMEDONC 23:45 → 4SSUR 07-07 03:15
PROVIDERS: ADMIT Hospitalist; ATTEND Hospitalist
PROC: 0FJD8ZZ Inspection of Pancreatic Duct, Via Natural or Artificial Opening Endoscopic (ICD-10-PCS; 2021-07-12)
PROC: BF111ZZ Fluoroscopy of Biliary and Pancreatic Ducts using Low Osmolar Contrast (ICD-10-PCS; 2021-07-12)
PROC: 0FJB8ZZ Inspection of Hepatobiliary Duct, Via Natural or Artificial Opening Endoscopic (ICD-10-PCS; principal; 2021-07-12 08:15)
PROC: 3E0R3BZ Introduction of Anesthetic Agent into Spinal Canal, Percutaneous Approach (ICD-10-PCS; 2021-07-13)
DX: K85.20 Alcohol induced acute pancreatitis without necrosis or infection (principal); K82.1 Hydrops of gallbladder; K86.89 Other specified diseases of pancreas; E83.42 Hypomagnesemia; F10.10 Alcohol abuse, uncomplicated; F17.200 Nicotine dependence, unspecified, uncomplicated; F90.9 Attention-deficit hyperactivity disorder, unspecified type; F32.9 Major depressive disorder, single episode, unspecified; Z79.899 Other long term (current) drug therapy
CPT/HCPCS: 36415; 43260; 64530; 74181; 74330; 80053; 80074; 80076; 82150; 83605; 83690; 83735; 84100; 85025; 85027; 85610; 96361; 96374; 96375; 99285

== ENCOUNTER → 2021-07-06 | Outpatient (CLI) | payer BC ==
[2021-07-06 16:50] LABS: HCT 41.2 % (39.0-53.0); HGB 13.5 gm/dL (13.0-17.5); MCH 35.1 pg (25.0-35.0); MCHC 32.6 g/dL (31.0-37.0); MCV 107.4 fL (80.0-100.0); Macrocytosis Moderate; Mean Platelet Volume 8.5; Platelet Count 162 k/uL (150-450); RBC 3.84 m/uL (4.30-5.90); RDW 14.7 % (11.5-15.5); WBC 9.8 k/uL (3.8-10.6)
[2021-07-06 17:01] LABS: ALT 73 U/L (4-49); AST 193 U/L (17-59); African American GFR (CKD) >90 (>60 ml/min/1.73 sqM); Albumin 3.7 g/dL (3.5-5.0); Alkaline Phosphatase 450 U/L (38-126); Anion Gap 9 mmol/L; Blood Urea Nitrogen 17 mg/dL (9-20); Calcium 9.5 mg/dL (8.4-10.2); Carbon Dioxide 27 mmol/L (22-30); Chloride 99 mmol/L (98-107); Glucose 132 mg/dL (74-99); Non-African American GFR(CKD) >90 (>60 ml/min/1.73 sqM); Potassium 4.4 mmol/L (3.5-5.1); Sodium 135 mmol/L (137-145); Total Protein 7.4 g/dL (6.3-8.2)
[2021-07-06 17:30] LABS: Amylase 313 U/L (30-110)
[2021-07-06 17:37] LABS: Lipase 4546 U/L (23-300)
--- NOTE | 2021-07-06 17:55 | US ---
EXAMINATION TYPE: US abdomen complete DATE OF EXAM: 07/06/2021 COMPARISON: CT 06/29/2021 CLINICAL HISTORY: R10.9 UNSPECIFIED ABDOMINAL PAIN. Abdomen pain and N/V x 3 days EXAM MEASUREMENTS: Liver Length: 19.5 cm Gallbladder Wall: 0.1 cm CBD: 1.1 cm Spleen: 10.1 cm Right Kidney: 9.8 x 4.6 x 4.6 cm Left Kidney: 9.3 x 4.6 x 4.6 cm Pancreas: visualized portions wnl, limited by overlying midline bowel gas Liver: enlarged, attenuating, hyperechoic Gallbladder: hydropic. No gallbladder wall thickening. No cholelithiasis. No pericholecystic fluid. Evidence for sonographic Mata's sign: yes CBD: Dilated to 1.1 cm caliber (top normal 6 mm). Distal CBD cannot be visualized due to overlying b owel gas. Spleen: visualized portions wnl, limited by overlying bowel gas Right Kidney: wnl Left Kidney: wnl Upper IVC: wnl Abd Aorta: prox and mid portions wnl, distal portion obscured by overlying midline bowel gas IMPRESSION: DILATED COMMON BILE DUCT, ETIOLOGY UNCLEAR; WOULD SUGGEST CONSIDERATION OF FURTHER CHARACTERIZATION W ITH MRCP/MRI.
== END | disposition home or self-care (01) ==
LOC: RADUSWWP 16:29
PROVIDERS: ATTEND Family Medicine
DX: R10.9 Unspecified abdominal pain (principal); R53.82 Chronic fatigue, unspecified
CPT/HCPCS: 76700; 80053; 82150; 83690; 85027; 86480

== ENCOUNTER 2021-08-02 07:38 | Day surgery (SDC) | payer BC ==
[2021-07-31 10:47] VITALS: BMI 16.6
[~2021-08-02 07:38] MED LIST: LACTATED RINGERS 1,000 ML IV SCH; LIDOCAINE 1% (10MG/ML) FOR IV START INTRADERMA PRN
[2021-08-02 07:57] VITALS: TEMP 97.7
[2021-08-02] MEDS ORDERED: PROPOFOL 10 MG/ML 20 ML VIAL IV ONE (08:18)
[2021-08-02] MEDS ORDERED: MIDAZOLAM 2 MG/2 ML VIAL ONE (08:18)
[2021-08-02] MEDS ORDERED: LIDOCAINE 1% INJ 10MG/ML (20 ML MDV) ONE (08:18)
[2021-08-02] MEDS ORDERED: KETAMINE 10 MG/ML 20 ML VIAL ONE (08:18)
--- NOTE | 2021-08-02 08:47 | P.PCN ---
Date of Procedure: 08/02/21 Procedure(s) Performed: Brief history: Patient is a pleasant 31-year-old white male scheduled for an elective upper endoscopy as well as colonoscopy as a part of evaluation of nausea vomiting diarrhea for the last several weeks duration. He lost about 20 pounds in the last 6 months. Procedure performed: Esophagogastroduodenoscopy with biopsy Colonoscopy with biopsy Preoperative diagnosis: Chronic nausea vomiting Chronic diarrhea of 6 months duration Progressive weight loss Anesthesia: MAC Procedure: After informed consent was obtained from the patient was brought into the endoscopy unit and IV sedation was administered by anesthesia under continuous monitoring. Initially upper endoscopy was done. The Olympus GF 160 video endoscope was inserted inserted into the mouth and esophagus intubated without any difficulty and was gradually advanced into the stomach and duodenum and carefully examined. The bulb and second part of the duodenum appeared normal. Biopsies were done from the duodenum to rule out celiac disease The scope was then withdrawn into the stomach adequately insufflated with air and upon careful examination the antrum had mild gastritis and biopsies were done from this area. The body, cardia and fundus appeared normal. The scope was then withdrawn into the esophagus. The GE junction was located at 40 cm to the incisors. It appeared regular with no erythema erosions or ulcerations. Rest of the esophagus appeared normal. Patient tolerated the procedure well. At this time the patient continued to remain sedation. Initial digital rectal examination was normal. Olympus CF 160 video colonoscope was then inserted into the rectum and gradually advanced to the cecum without any difficulty. Careful examination was performed as the scope was gradually being withdrawn. The prep was excellent. The cecum, ascending colon, transverse colon, descending colon, sigmoid colon and rectum appeared normal. random biopsies were done from ascending and descending colon to rule out metastatic/collagenous colitis. Retroflexion was performed in the rectum and a 2 internal hemorrhoidse noted. Patient tolerated the procedure well. Impression: 1. Upper endoscopy revealed mild antral gastritis but no evidence of esophagitis or peptic ulcer disease 2. Colonoscopy was within normal limits with no evidence of colitis or colorectal neoplasia Recommendations: Findings of this examination were discussed with the patient as well as his family. He was advised to follow with the biopsy results. he'll be seen in office in 3-4 weeks.
[2021-08-02 08:51] VITALS: RESP 16
[2021-08-02 09:32] VITALS: BP 141/88; PULSE 94
== END 2021-08-02 10:03 | disposition home or self-care (01) ==
LOC: ORWHC2ENDO 07:38
PROVIDERS: ATTEND Internal Medicine Gastroenterology
DX: K29.70 Gastritis, unspecified, without bleeding (principal); K52.9 Noninfective gastroenteritis and colitis, unspecified; I10 Essential (primary) hypertension; F17.200 Nicotine dependence, unspecified, uncomplicated; K21.9 Gastro-esophageal reflux disease without esophagitis; F32.9 Major depressive disorder, single episode, unspecified
CPT/HCPCS: 45380; 43239; J2250; J2001; J2704; 88305

== ENCOUNTER 2021-08-10 06:27 | Day surgery (SDC) | payer BC ==
[2021-08-09 09:34] VITALS: BMI 16.2
[2021-08-10 06:48] VITALS: TEMP 97.1
[2021-08-10] MEDS ORDERED: LIDOCAINE 1% (10MG/ML) FOR IV START INTRADERMA ONE (06:54)
[2021-08-10] MEDS: LACTATED RINGERS 1,000 ML IV SCH ×2 (06:54→09:26)
[2021-08-10] MEDS ORDERED: ROPIVACAINE 5MG/ML 20ML VIAL ONE (07:41)
[2021-08-10] MEDS ORDERED: DEXAMETHASONE SOD PHOSPHATE 10 MG/ML 1 ML VIAL ONE (07:41)
[2021-08-10] MEDS ORDERED: MIDAZOLAM 2 MG/2 ML VIAL ONE (07:41)
[2021-08-10] MEDS ORDERED: fentaNYL (PF) 50 MCG/ML 2 ML AMP ONE ×2 (07:41→08:51)
[2021-08-10] MEDS ORDERED: IOPAMIDOL M200 10 ML VIAL ONE (07:41)
[2021-08-10] MEDS ORDERED: IV FLUID CONTINUATION 1,000 ML IV ONE (08:10)
--- NOTE | 2021-08-10 08:14 | P.PCN ---
Date of Procedure: 08/10/21 Preoperative Diagnosis: Chronic pancreatitis Postoperative Diagnosis: Same as above Procedure(s) Performed: Celiac plexus block under fluoroscopic guidance Anesthesia: MAC (Moderate conscious sedation with IV Versed 2 mg and fentanyl 100 g) Surgeon: Armond Chu Pathology: none sent Condition: stable Disposition: PACU Description of Procedure: The patient was seen in the preop holding area consent was obtained then he was brought into the procedure room and placed in prone position. Skin was prepped with ChloraPrep and draped in a sterile manner. Lidocaine 1% was used to numb the skin up at the target points that were chosen as follows: The spinous process of L2 vertebra was marked on the AP view of fluoroscopy then the C-arm was tilted to the right oblique position until the tip of the transverse process vanished behind the lateral edge of the vertebral body of L2 after that the C- arm was directed caudad until the marking pointer noted from L2 to L1. Entry site was about 6 cm lateral to midline. I then used 22-gauge 7 inch Quincke spinal needle to go through the skin in a superior to medial direction from the level of L2 targeting the superior end of L1 vertebra. After contacting bone at the L1 vertebral needle tilted laterally until it passed anterio- medial to the L1 vertebral body, the needle tip was advanced to the anterior edge of the L1 vertebral body on the lateral view of fluoroscopy. I then injected 5 MLS of Isovue which showed typical spread of the dye anterior to the L1 vertebral body. The same procedure was repeated on the left side in the same manner. I prepared a solution of 30 MLS of ropivacaine 0.5% +10 mg of Decadron and 15 MLS was given in 5 mL increments on each side after negative aspiration for any blood or CSF. Patient tolerated procedure well and was taken to PACU in stable condition.
[2021-08-10] MEDS ORDERED: KETOROLAC 15 MG/ML 1 ML VIAL ONE (08:51)
[2021-08-10] MEDS ORDERED: fentaNYL (PF) 50 MCG/ML 2 ML AMP IVP ONE ×2 (08:56→09:32)
[2021-08-10] MEDS ORDERED: KETOROLAC 15 MG/ML 1 ML VIAL IVP ONE (08:57)
--- NOTE | 2021-08-10 09:22 | FL ---
EXAMINATION TYPE: FL guided pain mgmt statistic DATE OF EXAM: 08/10/2021 HISTORY: Fluoroscopy time 52 seconds of fluoroscopy provided. IMPRESSION: 1. Fluoroscopy time.
[2021-08-10] MEDS ORDERED: HYDROcodone/APAP 10-325MG 1 EACH TAB ONE (10:03)
[2021-08-10] MEDS ORDERED: HYDROcodone/APAP 10-325MG 1 EACH TAB PO ONE (10:07)
[2021-08-10 10:10] VITALS: RESP 16
[2021-08-10 10:41] VITALS: BP 122/83; PULSE 72
== END 2021-08-10 11:08 | disposition home or self-care (01) ==
LOC: ORPAIN 06:27
PROVIDERS: ATTEND Anesthesiology
DX: K86.1 Other chronic pancreatitis (principal); G89.18 Other acute postprocedural pain; Z88.5 Allergy status to narcotic agent; I10 Essential (primary) hypertension; F17.200 Nicotine dependence, unspecified, uncomplicated
CPT/HCPCS: 64530; J2250; J1100; J3010; J1885; Q9966; J2795; 99152

== ENCOUNTER → 2021-09-25 | Outpatient (CLI) | payer BC ==
--- NOTE | 2021-09-25 08:21 | P.PN ---
Subjective Progress Note Date: 09/25/21 Chintan is a 31-year-old male presented to clinic today for follow-up appointment after initial celiac plexus block inpatient in July and a outpatient celiac plexus block in August for pancreatitis. He reports that the blocks help control his pain in his abdomen. However he feels like his pain is beginning to return. He describes it just is a tense heat describes it as heartburn Sindlinger on for about 2 months. He'll like to have a repeat of the block to help reduce his abdominal pain. Today he is reporting low back pain. He reports the onset began during his hospital stay while laying in bed for 10 days. The pain is located mostly in his low back without radiation to his extremities. He's reports the pain is intermittent and he describes it as a pulling sensation. His pain is aggravated with increased activity and certain stretching movements. Pain is relieved with rest and stretching exercises. He has not had physical therapy, director of healthcare systems, or massage therapy for his pain. He has not had any imaging of his low back to date. Denies any bowel or bladder dysfunction, saddle anesthesia, or any other red flag symptoms. Objective - Exam Physical Examinations : -Constitutiona : Cooperative , not in acute distress . -HEENT : nech : supple , no Lymphadenopathy , normal thyroid size . : eyes : no ptosis , no icterus, no photophobia . - neurologic : Cranial nerve II to XII intact , no focal neurological deffecit . -psychatric : alert , oriented X 3 , appropriate affect , intact judgment and insight . -Lymphatic : no Lymphadenopathy . - musculoskeltal : Lumber spine moter stegnth lower extremities ,thigh and legs 5/5 Right side , 5/5 Left side deep tendon reflexes : normal Knee Jerk , normal ankle Jerk lumber facet Loading Test =positive Right , positive Left Range of motion of the lumbar spine Flexion 30 degrees, extension 10 degrees strait leg raising test = negative Fabere test= positive Right , and positive LT . Sever tenderness over the Sacroiliac joint on the Right , and Left sides Sacroiliac compression test= positive bilaterally Assessment and Plan Assessment: Assessment and plan Assessment: Acute pancreatitis Low back pain Plan: Patient could benefit from repeat celiac plexus block under ultrasound guidance Begin physical therapy for low back pain with increase strength, increase flexibility, and reduction of pain. If pain is not reduced with physical therapy considered imaging to identify any underlying pathology Dr. Alexander was available by phone for consultation during his visit. I have spent 30 minutes on patient care today. The time was used to review the medical records including relevant urine studies and Prescription history (MAPs), review of the available imaging, evaluation and examination of the patient, coordination of care with the medical staff and if applicable referring physicians, as well as creation of the medical record. - PQRS measures = - Patient's medications are documented in the chart. -Tobacco use is positive and counseling.Given. -Patient's has not received pneumococcal vaccine. -Advanced care planning discussed, patient not eligible. -Opiate contract signed. -Pain positive and follow-up visit/procedure is scheduled. -Patient's blood pressure measured 122/81 , and documented in the record ,and patient will follow up with the primary care. -Patient was not identified as an unhealthy alcohol user Time with Patient: Less than 30
[2021-09-25 08:24] VITALS: BP 122/81; PULSE 67; RESP 18; TEMP 97.9
== END | disposition home or self-care (01) ==
LOC: PNWHC3 07:49
PROVIDERS: ATTEND Student in an Organized Health Care Education/Training Program
DX: K85.90 Acute pancreatitis without necrosis or infection, unspecified (principal); M54.50 Low back pain, unspecified
CPT/HCPCS: 99211

== ENCOUNTER 2021-11-14 06:13 | Day surgery (SDC) | payer BC ==
[2021-11-07 12:37] VITALS: BMI 17.1
[~2021-11-14 06:13] MED LIST changes: -LIDOCAINE 1% (10MG/ML) FOR IV START INTRADERMA PRN
[2021-11-14 06:31] VITALS: TEMP 98.3
[2021-11-14] MEDS ORDERED: LACTATED RINGERS 1,000 ML IV ONE ×2 (06:36)
[2021-11-14] MEDS ORDERED: fentaNYL (PF) 50 MCG/ML 2 ML AMP ONE (07:17)
[2021-11-14] MEDS ORDERED: methylPREDNISolone ACETATE 40 MG/ML 1 ML VIAL ONE (07:17)
[2021-11-14] MEDS ORDERED: IOPAMIDOL M200 10 ML VIAL ONE (07:17)
[2021-11-14] MEDS ORDERED: ROPIVACAINE 5MG/ML 20ML VIAL ONE (07:17)
[2021-11-14] MEDS ORDERED: MIDAZOLAM 2 MG/2 ML VIAL ONE (07:17)
[2021-11-14] MEDS ORDERED: IV FLUID CONTINUATION 1,000 ML IV ONE (07:58)
--- NOTE | 2021-11-14 08:04 | P.PCN ---
Date of Procedure: 11/14/21 Description of Procedure: PROCEDURE: Diagnostic Celiac plexus block #2. PREOPERATIVE DIAGNOSIS: Abdominal pain secondary to chronic pancreatitis secondary to alcohol-induced . POSTOPERATIVE DIAGNOSIS: Abdominal pain secondary to chronic pancreatitis secondary to alcohol-induced ANESTHESIA: Local with 1% lidocaine; IV sedation with Versed , and Fentanyl . Surgeon: Seferino French EBL: none Specimen removed: None Fluoroscopic image: Saved to electronic medical records PROCEDURE INDICATION: The patient with abdominal pain secondary to nonspecific right upper quadrant pain presents to our pain clinic. Failed with conservative therapy. Scheduled for diagnostic celiac plexus block. Patient had good pain relief with the previous celiac plexus block. PROCEDURE DESCRIPTION: The patient was seen and identified in the preoperative area. After discussing the risks, benefits, possible complications, and alternatives with the patient, the patient signed informed consent. Peripheral IV line was placed. Vital sings were taken and stable throughout the procedure. The patient was placed in prone position on the procedure table. Critical pause was taken. The thoraco-lumbar area was prepped with Chloraprep x2 and draped in the usual sterile fashion. Using anterior-posterior fluoroscopy the L1 vertebra was identified. The camera angle was moved to the oblique position so that the transverse process of L1 lined up and aligned with the right lateral border of the vertebral body. Skin and deeper tissues corresponding to the site was nesthetized using approximately 3 mL of 1% lidocaine. Then, using fluoroscopy a 5 -inch 22-gauge needle was guided to the lateral border of the L1 vertebral body below the level of the L1 transverse process. After the needle contacted the periosteum of the lateral aspect of L1 vertibral body the fluoroscopy camera was placed in the l ateral position. As we advanced just anterior to the frontal border of the vertibral body. The needle was then advanced a few millimeters, than after negative aspiration for CSF, blood, air, and other bodily contents and with no paresthesias, approximately 3 mL of Isovue-M 200 was injected. Then, again after negative aspiration for CSF, blood, air, and other bodily contents and with no paresthesias, 15 mL of block solution draped in with intermittent negative aspiration. The block solution containing 20 mL of preservative free 0.5% ropivacaine mixed with 10 mL of preservative free normal saline, and 80mg of Depo-Medrol. Washout of the dye was seen. Entire procedure repeated on the left side of L1 vertebrae area. All injections, except for local skin anesthetic, were performed using extension tubing. The needle was removed. Band-Aid was applied. The patient tolerated the procedure well. COMPLICATIONS: None. DISPOSITION / PLANS: The patient was placed in a supine position and transferred to the recovery area in a stable condition for observation and was discharged from the recovery room after meeting discharge criteria. Patient was given instructions to come to ER if noticed any shortness of breath. Home discharge instructions given to the patient by the staff. The patient was reexamined prior to discharge. The patient will schedule to follow up with the pain clinic in 4 weeks.
[2021-11-14 08:08] VITALS: RESP 16
[2021-11-14 08:15] VITALS: BP 132/87; PULSE 63
--- NOTE | 2021-11-14 09:28 | FL ---
EXAMINATION TYPE: FL guided pain mgmt statistic DATE OF EXAM: 11/14/2021 HISTORY: Fluoroscopy time 23 seconds of fluoroscopy provided. IMPRESSION: 1. Fluoroscopy time.
== END 2021-11-14 08:54 | disposition home or self-care (01) ==
LOC: ORPAIN 06:13
DX: K86.1 Other chronic pancreatitis (principal); I10 Essential (primary) hypertension; Z88.5 Allergy status to narcotic agent
CPT/HCPCS: 64530; J2250; J1030; J3010; Q9966; J2795; 99152; 99153

== ENCOUNTER 2022-02-02 07:23 | Inpatient (IN) | payer BC ==
[2022-02-02] MEDS ORDERED: SODIUM CHLORIDE 0.9% 2,000 ML IV STA (07:53)
[2022-02-02] MEDS ORDERED: HYDROmorphone 0.5 MG/0.5 ML SYRINGE IVP STA ×2 (07:53→09:57)
[2022-02-02] MEDS ORDERED: ONDANSETRON 4 MG/2 ML VIAL IVP STA (07:53)
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
[2022-02-02 08:10] LABS: Anisocytosis Slight; Basophils % (A) 0 %; Eosinophils # (A) 0.1 k/uL (0-0.7); Eosinophils % (A) 1 %; HCT 31.8 % (39.0-53.0); HGB 9.4 gm/dL (13.0-17.5); Hypochromasia Marked; Lymphocytes # (A) 1.3 k/uL (1.0-4.8); Lymphocytes % (A) 13 %; MCH 25.2 pg (25.0-35.0); MCHC 29.6 g/dL (31.0-37.0); MCV 85.1 fL (80.0-100.0); Mean Platelet Volume 8.7; Monocytes # (A) 0.8 k/uL (0-1.0); Monocytes % (A) 8 %; Neutrophils # (A) 7.7 k/uL (1.3-7.7); Neutrophils % (A) 77 %; Platelet Count 194 k/uL (150-450); RBC 3.74 m/uL (4.30-5.90); RDW 18.2 % (11.5-15.5)
[2022-02-02 08:38] LABS: ALT 34 U/L (4-49); AST 68 U/L (17-59); African American GFR (CKD) >90 (>60 ml/min/1.73 sqM); Albumin 4.6 g/dL (3.5-5.0); Alcohol <10 mg/dL; Alkaline Phosphatase 124 U/L (38-126); Anion Gap 15 mmol/L; Blood Urea Nitrogen 13 mg/dL (9-20); Calcium 9.2 mg/dL (8.4-10.2); Carbon Dioxide 21 mmol/L (22-30); Chloride 100 mmol/L (98-107); Glucose 199 mg/dL (74-99); Non-African American GFR(CKD) >90 (>60 ml/min/1.73 sqM); Potassium 3.4 mmol/L (3.5-5.1); Sodium 136 mmol/L (137-145); Total Bilirubin 1.3 mg/dL (0.2-1.3); Total Protein 7.8 g/dL (6.3-8.2)
[2022-02-02 09:09] LABS: Amylase 460 U/L (30-110)
[2022-02-02 09:20] LABS: Lipase 6368 U/L (23-300)
[2022-02-02 09:55] LABS: Appearance,Urine Clear (Clear); Bilirubin,Urine Negative (Negative); Blood,Urine Trace (Negative); Color,Urine Yellow; Glucose,Urine (UA) Negative (Negative); Hyaline Casts,Urine 19 /lpf (0-2); Ketones,Urine 2+ (Negative); Leukocyte Esterase,Urine Negative (Negative); Mucus,Urine Moderate /hpf; Nitrite,Urine Negative (Negative); PH, Urine 6.5 (5.0-8.0); Protein,Urine 1+ (Negative); RBC,Urine <1 /hpf (0-5); Specific Gravity,Urine 1.019 (1.001-1.035); Squamous Epithelial Cell,Urine <1 /hpf (0-4); WBC,Urine <1 /hpf (0-5)
[2022-02-02] MEDS ORDERED: NALOXONE 0.4 MG/ML 1 ML VIAL IV PRN (10:25)
[2022-02-02] MEDS ORDERED: HYDROmorphone 0.5 MG/0.5 ML SYRINGE IVP PRN (10:25)
--- NOTE | 2022-02-02 10:36 | P.PN ---
Progress Note - Text Progress Note Date: 02/02/22 After reviewing this case, I believe this patient meets inpatient criteria for alcoholic pancreatitis with lipase > 6000. I will reach out to [facility] group to take over the care of this patient.
[2022-02-02] MEDS ORDERED: ONDANSETRON 4 MG/2 ML VIAL IVP PRN (11:02)
[2022-02-02] MEDS: HYDROmorphone 1 MG/ML 1 ML SYRINGE IVP PRN ×4 (12:26→20:40)
[2022-02-02] MEDS: PANTOPRAZOLE 40 MG/10 ML VIAL IVP SCH (12:26)
[2022-02-02] MEDS: SODIUM CHLORIDE 0.9% 1,000 ML IV SCH (12:27)
--- NOTE | 2022-02-02 12:32 | US ---
EXAMINATION TYPE: US abdomen complete DATE OF EXAM: 02/02/2022 COMPARISON: 07/06/21 CLINICAL HISTORY: abdominal pain, pancreatitis. Epigastric pain; pancreatitis EXAM MEASUREMENTS: Liver Length: 16.6 cm Gallbladder Wall: 0.25 cm CBD: 0.89 cm Spleen: 10.3 x 4.1 cm Right Kidney: 10.2 x 4.0 x 5.1 cm Left Kidney: 10.1 x 5.1 x 4.9 cm Pancreas: Pancreatic duct measures 0.3 cm. This is in the mid body, normal up to 0.2 cm. Liver: Increased attenuation Gallbladder: Hydropic; gallbladder measures 10.2 cm Evidence for sonographic Mata's sign: no CBD: Dilated Spleen: Visualized portions appear wnl Right Kidney: No hydronephrosis or masses seen Left Kidney: No hydronephrosis or masses seen Upper IVC: wnl Abd Aorta: Prox and mid portions appear wnl. Distal portion obscured by bowel gas IMPRESSION: 1. Mild prominence of the pancreatic duct at the body the pancreas. Follow-up is recommended. 2. Mild fatty infiltration of the liver. Mild hepatomegaly is present
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
[2022-02-02] MEDS ORDERED: Potassium Replacement Protocol 1 EACH MISC MISCELLANE PRN (12:42)
[2022-02-02] MEDS: POTASSIUM CHLORIDE 10 MEQ in WATER FOR INJECTION 1 100ML.BAG IVPB SCH ×4 (13:38→17:29)
[2022-02-02] MEDS: NICOTINE 14MG/24HR PATCH TRANSDERM SCH (13:38)
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
[2022-02-02 18:15] LABS: % Iron Saturation 15.86 (15.00-50.00)
[2022-02-03] MEDS: HYDROmorphone 1 MG/ML 1 ML SYRINGE IVP PRN ×10 (00:03→22:14)
[2022-02-03] MEDS: SODIUM CHLORIDE 0.9% 1,000 ML IV SCH ×4 (00:09→15:54)
[2022-02-03] MEDS: NICOTINE 14MG/24HR PATCH TRANSDERM SCH (08:01)
[2022-02-03] MEDS: PANTOPRAZOLE 40 MG/10 ML VIAL IVP SCH (08:01)
[2022-02-03 09:51] LABS: HCT 30.2 % (39.6-50.0); HGB 8.3 g/dL (13.0-17.0); MCH 23.7 pg (27.0-32.0); MCHC 27.5 g/dL (32.0-37.0); MCV 86.3 fL (80.0-97.0); Mean Platelet Volume 11.2 fL (9.5-12.2); NRBC Per 100 WBC 0 /100 WBCS (0.0-0.0); Platelet Count 187 X 10*3/uL (140-440); RDW 19.2 % (11.5-14.5)
[2022-02-03 10:14] LABS: African American GFR (CKD) 146.8 (60.0-200.0); Albumin 4.3 g/dL (3.8-4.9); Albumin/Globulin Ratio 1.65 (1.60-3.17); Anion Gap 14.6 mmol/L (10.00-18.00); BUN/Creat Ratio 9.57 Ratio (12.00-20.00); Blood Urea Nitrogen 6.7 mg/dL (9.0-27.0); Calcium 9.1 mg/dL (8.7-10.3); Carbon Dioxide 20.4 mmol/L (20.0-27.5); Globulin 2.6 g/dL (1.6-3.3); Non-African American GFR(CKD) 126.6 (60.0-200.0); Potassium 4.3 mmol/L (3.5-5.5); Total Bilirubin 0.7 mg/dL (0.30-1.20); Total Protein 6.9 g/dL (6.2-8.2)
--- NOTE | 2022-02-03 15:51 | P.PN ---
Subjective Progress Note Date: 02/03/22 31-year-old male with history of alcohol abuse came in with compensative severe epigastric 10/10 abdominal pain radiating to the back which started on Saturday. She last drink was around a 4-5 days ago before he started having abdominal pain. Patient doing somewhat 1 pint of hard liquor every day. Patient denied any shortness of breath or chest pain patient was having multiple episodes of nausea vomiting patient is found to have highly elevated lipase. Patient is also anemic normocytic. 02/03/2022 Patient still with epigastric upper quadrant abdominal pain today rating a 8/10. It is only mildly tender with palpation. Continues on IV dilaudid every 2 hours. Has been NPO per GI and can advance as tolerated patient would like to try some clear liquids for dinner. Will repeat an amylase and lipase in the morning. Slightly tachycardic 104, continue IV fluids as well. Review of Systems Constitutional: Denied any fatigue denied any fever. Cardio vascular: denied any chest pain, palpitations Gastrointestinal: denied any nausea, vomiting, diarrhea. Reports abdominal pain as above. Pulmonary: Denied any shortness of breath cough Neurologic denied any new focal deficits All inpatient medications were reviewed and appropriate changes in these medications as dictated in the interval history and assessment and plan. PHYSICAL EXAMINATION: GENERAL: The patient is alert and oriented x3, not in any acute distress. Well developed, well nourished. HEENT: Pupils are round and equally reacting to light. EOMI. No scleral icterus. No conjunctival pallor. Normocephalic, atraumatic. No pharyngeal erythema. No thyromegaly. CARDIOVASCULAR: S1 and S2 present. No murmurs, rubs, or gallops. PULMONARY: Chest is clear to auscultation, no wheezing or crackles. ABDOMEN: Soft, tenderness in the epigastric area., nondistended, normoactive bowel sounds. No palpable organomegaly. MUSCULOSKELETAL: No joint swelling or deformity. EXTREMITIES: No cyanosis, clubbing, or pedal edema. NEUROLOGICAL: Gross neurological examination did not reveal any focal deficits. SKIN: No rashes. Assessment and plan -Acute alcoholic pancreatitis: Patient the will be continued on IV fluids at 150 mL per hour, patient has been NPO. Patient had an ultrasound of the abdomen showing his history of stent placement in the common bile duct in the past. DID NOT SHOW ANY CHOLELITHIASIS OR CHOLEDOCHOLITHIASIS EXCEPT FOR MILD DILATATION OF THE PANCREATIC DUCT. Patient would like to try clear liquid diet for dinner w hich is okay and recheck amylase and lipase tomorrow. -Hypokalemia: Secondary to nausea vomiting and natriuresis, potassium within normal limits today. -Anemia normocytic: Patient probably has combination of iron deficiency as well as B12 or alcohol related anemia from bone marrow suppression. B12 and Folate within normal limits, serum iron is low normal, TIBC elevated. -Alcohol abuse: Counseling was provided -Nicotine use: Counseling was provided will order nicotine patch -Alcohol withdrawal: Last drink 3 to 4 days ago, no signs of acute withdrawal currently. DVT prophylaxis: Early ambulation GI prophylaxis: Full Code The impression and plan of care has been dictated by Mariah Whitfield, Nurse Practitioner as directed. Dr. Joaquin MD I have performed a history and physical examination and medical decision making of this patient, discussed the same with the dictator, and agree with the dictators assessment and plan as written, documented as a scribe. Based on total visit time, I have performed more than 50% of this visit. Objective - Vital Signs Vital signs: Vital Signs Temp 98.0 F 02/03/22 11:51 Pulse 104 H 02/03/22 11:51 Resp 18 02/03/22 11:51 BP 145/96 02/03/22 11:51 Pulse Ox 97 02/03/22 11:51 Intake & Output 02/02/22 02/03/22 02/03/22 18:59 06:59 18:59 Intake Total 900 1500 Balance 900 1500 Weight 61.235 kg Intake: IV 500 1500 Invasive Line 1 125 Sodium Chloride 0.9% 1, 500 1375 000 ml @ 125 mls/hr IV . Q8H [facility] Rx#:[id number] Intake, IV Titration 400 Amount Potassium Chloride 10 meq 400 In Water For Injection 1 100ml.bag @ 100 mls/hr IVPB Q1H [facility] Rx#: [id number] Other: Voiding Method Toilet Toilet # Voids 2 3 3 - Labs CBC & Chem 7: 02/03/22 06:37 02/03/22 06:37 Labs: Abnormal Lab Results - Last 24 Hours (Table) 02/02/22 02/03/22 02/03/22 Range/Units 08:02 06:37 06:37 WBC 13.60 H (4.50-10.00) X 10*3/uL RBC 3.50 L (4.40-5.60) X 10*6/uL Hgb 8.3 L (13.0-17.0) g/dL Hct 30.2 L (39.6-50.0) % MCH 23.7 L (27.0-32.0) pg MCHC 27.5 L (32.0-37.0) g/dL RDW 19.2 H (11.5-14.5) % BUN 6.7 L (9.0-27.0) mg/dL BUN/Creatinine Ratio 9.57 L (12.00-20.00) Ratio TIBC 532 H (228-460) ug/dL Transferrin 380.0 H (204.0-354.0) mg/dL AST 44 H (14-35) U/L Assessment and Plan Time with Patient: Less than 30
[2022-02-03] MEDS: FLUoxetine HCL 20 MG CAP PO SCH ×2 (22:13)
[2022-02-04] MEDS: HYDROmorphone 1 MG/ML 1 ML SYRINGE IVP PRN ×2 (01:13→04:27)
[2022-02-04] MEDS: SODIUM CHLORIDE 0.9% 1,000 ML IV SCH ×4 (01:15→22:39)
[2022-02-04] MEDS ORDERED: HALOPERIDOL LACTATE 5 MG/ML 1 ML VIAL IM PRN (08:10)
[2022-02-04] MEDS: PANTOPRAZOLE 40 MG/10 ML VIAL IVP SCH (08:23)
[2022-02-04] MEDS: NICOTINE 14MG/24HR PATCH TRANSDERM SCH (09:01)
[2022-02-04] MEDS ORDERED: THIAMINE 100 MG/ML 2 ML VIAL IM STA (09:22)
[2022-02-04] MEDS ORDERED: LORazepam 2 MG/ML INJ IV PRN ×3 (09:22)
[2022-02-04] MEDS ORDERED: ACETAMINOPHEN TAB 325 MG TAB PO PRN (09:32)
[2022-02-04] MEDS: chlordiazePOXIDE 25 MG CAP PO SCH ×3 (09:54→21:09)
[2022-02-04 11:34] LABS: Basophils # (A) 0.07 X 10*3/uL (0.00-0.10); Basophils % (A) 0.7 %; Eosinophils # (A) 0.32 X 10*3/uL (0.04-0.35); HCT 28.7 % (39.6-50.0); Immature Grans, Automated 0.5 %; Lymphocytes # (A) 1.49 X 10*3/uL (0.90-5.00); Lymphocytes % (A) 14.2 %; MCH 23.9 pg (27.0-32.0); MCHC 27.9 g/dL (32.0-37.0); MCV 85.7 fL (80.0-97.0); Mean Platelet Volume 11.1 fL (9.5-12.2); Monocytes # (A) 0.92 X 10*3/uL (0.20-1.00); Monocytes % (A) 8.8 %; NRBC Per 100 WBC 0 /100 WBCS (0.0-0.0); Neutrophils # (A) 7.66 X 10*3/uL (1.80-7.70); Neutrophils % (A) 72.8 %; Platelet Count 200 X 10*3/uL (140-440); RBC 3.35 X 10*6/uL (4.40-5.60); RDW 19.8 % (11.5-14.5); WBC 10.51 X 10*3/uL (4.50-10.00)
[2022-02-04 11:42] LABS: African American GFR (CKD) 146.8 (60.0-200.0); Albumin 4.3 g/dL (3.8-4.9); Albumin/Globulin Ratio 1.72 (1.60-3.17); Anion Gap 15.4 mmol/L (10.00-18.00); BUN/Creat Ratio 7.14 Ratio (12.00-20.00); Calcium 9.4 mg/dL (8.7-10.3); Carbon Dioxide 21.6 mmol/L (20.0-27.5); Globulin 2.5 g/dL (1.6-3.3); Non-African American GFR(CKD) 126.6 (60.0-200.0); Total Bilirubin 0.7 mg/dL (0.30-1.20); Total Protein 6.8 g/dL (6.2-8.2)
--- NOTE | 2022-02-04 13:05 | P.PN ---
Subjective Progress Note Date: 02/04/22 31-year-old male with history of alcohol abuse came in with compensative severe epigastric 10/10 abdominal pain radiating to the back which started on Saturday. She last drink was around a 4-5 days ago before he started having abdominal pain. Patient doing somewhat 1 pint of hard liquor every day. Patient denied any shortness of breath or chest pain patient was having multiple episodes of nausea vomiting patient is found to have highly elevated lipase. Patient is also anemic normocytic. 02/03/2022 Patient still with epigastric upper quadrant abdominal pain today rating a 8/10. It is only mildly tender with palpation. Continues on IV dilaudid every 2 hours. Has been NPO per GI and can advance as tolerated patient would like to try some clear liquids for dinner. Will repeat an amylase and lipase in the morning. Slightly tachycardic 104, continue IV fluids as well. 02/04/2022 Patient around 0400 today began having withdrawl symptoms, confused hallucinating and combative with staff. IM haldol given this AM, patient was started on CIWA protocol and librium taper. He is alert to place, and was able to verbalize that he knew his and parents weren't actually in the room. He wants to be discharged today, concerned with D/C today as he has small children at home and was very confused on the phone with her today. Vitals stable, blood pressure slightly elevated 164/93. Labs today show 10.51, hgb 8.0, amylase 262, lipase 459. Tolerated diet okay today and denies abdominal pain cu rrently, discontinued narcotics. Review of Systems Constitutional: Denied any fatigue denied any fever. Cardio vascular: denied any chest pain, palpitations Gastrointestinal: denied any nausea, vomiting, diarrhea. Reports abdominal pain as above. Pulmonary: Denied any shortness of breath cough Neurologic denied any new focal deficits All inpatient medications were reviewed and appropriate changes in these medications as dictated in the interval history and assessment and plan. PHYSICAL EXAMINATION: GENERAL: The patient is alert and oriented x3, not in any acute distress. Well developed, well nourished. HEENT: Pupils are round and equally reacting to light. EOMI. No scleral icterus. No conjunctival pallor. Normocephalic, atraumatic. No pharyngeal erythema. No thyromegaly. CARDIOVASCULAR: S1 and S2 present. No murmurs, rubs, or gallops. PULMONARY: Chest is clear to auscultation, no wheezing or crackles. ABDOMEN: Soft, tenderness in the epigastric area., nondistended, normoactive bowel sounds. No palpable organomegaly. MUSCULOSKELETAL: No joint swelling or deformity. EXTREMITIES: No cyanosis, clubbing, or pedal edema. NEUROLOGICAL: Gross neurological examination did not reveal any focal deficits. SKIN: No rashes. Assessment and plan -Acute alcoholic pancreatitis: Patient had an ultrasound of the abdomen showing his history of stent placement in the common bile duct in the past. DID NOT SHOW ANY CHOLELITHIASIS OR CHOLEDOCHOLITHIASIS EXCEPT FOR MILD DILATATION OF THE PANCREATIC DUCT. Amylase and lipase are trending down, patient received IV fluids and was NPO. He tolerated an increase in diet today. -Hypokalemia: Secondary to nausea vomiting and natriuresis, potassium within normal limits today. -Anemia normocytic: Patient probably has combination of iron deficiency as well as B12 or alcohol related anemia from bone marrow suppression. B12 and Folate within normal limits, serum iron is low normal, TIBC elevated. -Alcohol abuse: Counseling was provided -Nicotine use: Counseling was provided will order nicotine patch -Alcohol withdrawal: Last drink 3 to 4 days ago, patient having withdrawl symptoms beginning around 0400, CIWA and librium taper started today. Monitor overnight on librium, should be able to DC home tomorrow. DVT prophylaxis: Early ambulation GI prophylaxis: Full Code The impression and plan of care has been dictated by Mariah Whitfield, Nurse Practitioner as directed. Dr. Joaquin MD I have performed a history and physical examination and medical decision making of this patient, discussed the same with the dictator, and agree with the dictators assessment and plan as written, documented as a scribe. Based on total visit time, I have performed more than 50% of this visit. Objective - Vital Signs Vital signs: Vital Signs Temp 98.0 F 02/04/22 04:49 Pulse 84 02/04/22 04:49 Resp 16 02/04/22 04:49 BP 164/93 02/04/22 04:49 Pulse Ox 97 02/04/22 04:49 Intake & Output 02/03/22 02/04/22 02/04/22 18:59 06:59 18:59 Intake Total 360 1500 Balance 360 1500 Intake: Intake, IV Titration 1500 Amount Sodium Chloride 0.9% 1, 1500 000 ml @ 125 mls/hr IV . Q8H [facility] Rx#:[id number] Oral 360 Other: Voiding Method Toilet Toilet # Voids 4 - Labs CBC & Chem 7: 02/04/22 07:11 02/04/22 07:11 Labs: Abnormal Lab Results - Last 24 Hours (Table) 02/03/22 02/03/22 Range/Units 06:37 06:37 WBC 13.60 H (4.50-10.00) X 10*3/uL RBC 3.50 L (4.40-5.60) X 10*6/uL Hgb 8.3 L (13.0-17.0) g/dL Hct 30.2 L (39.6-50.0) % MCH 23.7 L (27.0-32.0) pg MCHC 27.5 L (32.0-37.0) g/dL RDW 19.2 H (11.5-14.5) % BUN 6.7 L (9.0-27.0) mg/dL BUN/Creatinine Ratio 9.57 L (12.00-20.00) Ratio AST 44 H (14-35) U/L
[2022-02-04] MEDS: THIAMINE 100 MG TAB PO SCH (16:20)
[2022-02-04] MEDS ORDERED: LORazepam 1 MG TAB PO PRN (19:14)
[2022-02-04 20:42] VITALS: TEMP 98.3
[2022-02-04] MEDS: FLUoxetine HCL 20 MG CAP PO SCH (21:09)
[2022-02-05 05:09] VITALS: BP 170/99; PULSE 98; RESP 16
[2022-02-05] MEDS: PANTOPRAZOLE 40 MG/10 ML VIAL IVP SCH (08:39)
[2022-02-05] MEDS: chlordiazePOXIDE 25 MG CAP PO SCH (09:23)
[2022-02-05] MEDS: NICOTINE 14MG/24HR PATCH TRANSDERM SCH (09:23)
[2022-02-05] MEDS: THIAMINE 100 MG TAB PO SCH (09:24)
--- NOTE | 2022-02-05 14:54 | P.DS ---
Providers Date of admission: 02/02/22 11:57 Attending physician: Carl Monreal Consults: 02/02/22 10:03 Consult Physician Routine Consulting Provider: Peg Martin Consult Reason/Comments: acute alcoholic pancreatitis Do you want consulting provider notified?: Yes Primary care physician: LAURO Way Hospital Course: Final Diagnosis -Acute alcoholic pancreatitis: Patient had an ultrasound of the abdomen showing his history of stent placement in the common bile duct in the past. DID NOT SHOW ANY CHOLELITHIASIS OR CHOLEDOCHOLITHIASIS EXCEPT FOR MILD DILATATION OF THE PANCREATIC DUCT. Amylase and lipase are trending down, patient received IV fluids and was NPO. He tolerated an increase in diet. -Hypokalemia: Secondary to nausea vomiting and natriuresis, potassium within normal limits today. -Anemia normocytic: Patient probably has combination of iron deficiency as well as B12 or alcohol related anemia from bone marrow suppression. B12 and Folate within normal limits, serum iron is low normal, TIBC elevated. -Alcohol abuse: Counseling was provided -Nicotine use: Counseling was provided will order nicotine patch -Alcohol withdrawal: Last drink 3 to 4 days ago, patient having withdrawl symptoms, did well on ativan and librium Discharge Disposition Patient stable for discharge today on librium taper. Hospital Course This is a 31-year-old male who presents with a history of chronic alcohol abuse who came in with compensated severe epigastric tenderness 10 abdominal pain which is radiating to the back. Patient states that his last drink was around 4-5 days ago and then he began having abdominal pain. Patient admits to drinking one pack her liquor every day. He denies any shortness of breath or chest pain. He was also having multiple episodes of nausea and vomiting and was found to have highly elevated lipase. Patient also has anemia that is normocytic on admission. Patient received IV pain medication and was placed nothing by mouth and started on IV fluids. He was also evaluated by GI services and all imaging showed chronic changes. Previous history of stent placement in the common bile duct. Abdominal pain improved significantly and patient was able to advance diet without incident. No further episodes of abdominal pain nausea or vomiting. Amylase and lipase have trended down significantly. 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 He did respond well to Haldol and was started on Librium. Patient was monitored overnight with no further episodes. Mentation improved he is alert and oriented 3 number episodes of hallucinating and is not combative or agitated. On admission white count 10, hemoglobin 9.4, sodium 136, potassium 3.4, glucose 199, TIBC 532, transferrin 380, AST 68, ALT 34, amylase 460, lipase 6368. Urinalysis negative, serum alcohol less than 10. 02/05/2022 Patient evaluated today resting in bed. Alert and oriented 3 he is no longer agitated or combative with staff. Has not had any further hallucinations. He would like to be discharged home today on Librium. States that he will abstain from drinking alcohol. He was also counseled on smoking cessation. Patient will follow up with primary care and GI services will repeat labs in 2 days. He is afebrile, other vital signs stable. Most recent labs show a sodium 138, potassium 4.0, AST 49, ALT 27, lipase is now 459, amylase 262. Lungs are clear, S1-S2 auscultated abdomen is soft and nontender. Patient is tolerating diet. Focal neurological exam is negative. There are no tremors noted. Please medication reconciliation for list of current medications. Thank you for allowing us to participate in the care of this patient. The impression and plan of care has been dictated by Mariah Whitfield, Nurse Practitioner as directed. Dr. Joaquin MD I have performed a history and physical examination and medical decision making of this patient, discussed the same with the dictator, and agree with the dictators assessment and plan as written, documented as a scribe. Based on total visit time, I have performed more than 50% of this visit. Patient Condition at Discharge: Fair Plan - Discharge Summary Discharge Rx Participant: No New Discharge Prescriptions: New Nicotine 14Mg/24Hr Patch [Habitrol] 1 patch TRANSDERM DAILY patch Thiamine [Vitamin B-1] 100 mg PO BID-W/MEALS #30 tab chlordiazePOXIDE HCl [Librium] 0 mg PO DIRECTED 6 Days #12 cap Pantoprazole [Protonix] 40 mg PO DAILY #14 tab Acetaminophen Tab [Tylenol] 650 mg PO Q6HR PRN tab PRN Reason: Fever And/ Or Pain Continue FLUoxetine HCL [PROzac] 20 mg PO HS FLUoxetine HCL [PROzac] 10 mg PO HS Discharge Medication List FLUoxetine HCL [PROzac] 20 mg PO HS 07/07/21 [History] FLUoxetine HCL [PROzac] 10 mg PO HS 02/02/22 [History] Acetaminophen Tab [Tylenol] 650 mg PO Q6HR PRN tab 02/05/22 [Rx] Nicotine 14Mg/24Hr Patch [Habitrol] 1 patch TRANSDERM DAILY patch 02/05/22 [Rx] Pantoprazole [Protonix] 40 mg PO DAILY #14 tab 02/05/22 [Rx] Thiamine [Vitamin B-1] 100 mg PO BID-W/MEALS #30 tab 02/05/22 [Rx] chlordiazePOXIDE HCl [Librium] 0 mg PO DIRECTED 6 Days #12 cap 02/05/22 [Rx] Follow up Appointment(s)/Referral(s): Peg Martin MD [STAFF PHYSICIAN] - 02/19/22 2:30 pm Swati Jama NPC [Primary Care Provider] - 02/07/22 1:00 pm Ambulatory/Diagnostic Orders: Complete Blood Count w/diff [LAB.AMB] Time Frame: 2 Days, Location: None Selected Patient Instructions/Handouts: Chlordiazepoxide (By mouth), Thiamine (By mout h), Pantoprazole (By mouth), Pancreatitis (DC), Alcohol Withdrawal (DC) Discharge Disposition: HOME SELF-CARE
== END 2022-02-05 11:46 | disposition home or self-care (01) | DRG 439 ==
LOC: EC 07:23 → 6NMEDSUR 10:41 → OBSVTOIN 11:57 → 5NMEDONC 11:58
PROVIDERS: ADMIT Hospitalist; ATTEND Hospitalist
PROC: HZ2ZZZZ Detoxification Services for Substance Abuse Treatment (ICD-10-PCS; principal; 2022-02-02)
DX: K85.20 Alcohol induced acute pancreatitis without necrosis or infection (principal); F10.139 Alcohol abuse with withdrawal, unspecified; Y90.0 Blood alcohol level of less than 20 mg/100 ml; K86.0 Alcohol-induced chronic pancreatitis; E86.0 Dehydration; D63.8 Anemia in other chronic diseases classified elsewhere; E87.6 Hypokalemia; K29.70 Gastritis, unspecified, without bleeding; D86.81 Sarcoid meningitis; F90.9 Attention-deficit hyperactivity disorder, unspecified type; D50.9 Iron deficiency anemia, unspecified; D51.9 Vitamin B12 deficiency anemia, unspecified; B35.9 Dermatophytosis, unspecified; F32.A Depression, unspecified; F17.210 Nicotine dependence, cigarettes, uncomplicated; Z71.41 Alcohol abuse counseling and surveillance of alcoholic; Z71.6 Tobacco abuse counseling; Z88.5 Allergy status to narcotic agent; Z79.899 Other long term (current) drug therapy; Z87.828 Personal history of other (healed) physical injury and trauma; F91.8 Other conduct disorders
CPT/HCPCS: 36415; 76700; 80053; 80320; 81001; 82150; 82607; 82746; 82747; 83540; 83550; 83690; 85025; 85027; 96361; 96365; 96375; 96376; 99285

== ENCOUNTER 2023-04-04 18:00 | Emergency (ER) | payer BC ==
[2023-04-04] MEDS ORDERED: SODIUM CHLORIDE 0.9% 1,000 ML IV STA (19:14)
[2023-04-04] MEDS ORDERED: ONDANSETRON 4 MG/2 ML VIAL IVP STA (19:14)
[2023-04-04] MEDS ORDERED: HYDROmorphone 1 MG/ML 1 ML SYRINGE IVP STA (19:16)
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
[2023-04-04 19:57] LABS: INR 1.2 (<1.2); Partial Thromboplastin Time 23.3 sec (22.0-30.0); Prothrombin Time 12.1 sec (9.0-12.0)
[2023-04-04 20:00] LABS: ALT 45 U/L (4-49); AST 175 U/L (17-59); African American GFR (CKD) >90 (>60 ml/min/1.73 sqM); Albumin 3.7 g/dL (3.5-5.0); Alkaline Phosphatase 232 U/L (38-126); Amylase 176 U/L (30-110); Anion Gap 18 mmol/L; Blood Urea Nitrogen 10 mg/dL (9-20); Calcium 8.5 mg/dL (8.4-10.2); Carbon Dioxide 21 mmol/L (22-30); Chloride 99 mmol/L (98-107); Glucose 247 mg/dL (74-99); Lipase 1005 U/L (23-300); Non-African American GFR(CKD) >90 (>60 ml/min/1.73 sqM); Potassium 3.4 mmol/L (3.5-5.1); Sodium 138 mmol/L (137-145); Total Bilirubin 0.5 mg/dL (0.2-1.3); Total Protein 6.5 g/dL (6.3-8.2)
--- NOTE | 2023-04-04 20:02 | US ---
EXAMINATION TYPE: US scrotum with doppler. Grayscale and color Doppler Duplex imaging performed of t dillon scrotum. DATE OF EXAM: 04/04/2023 COMPARISON: NONE CLINICAL INDICATION: Male, 32 years old with history of L testicle pain and swelling; L testicle pain and swelling x 3 days. Pt in pain during exam EXAM MEASUREMENTS: TESTICLES: Right Testicle: 4.1 x 2.8 x 2.5 cm Left Testicle: 3.4 x 2.4 x 2.3 cm EPIDIDYMIS HEAD: Right Epididymis: 1.0 cm Left Epididymis: 0.8 cm Doppler performed to assess for testicular vascularity; good bilateral color flow and waveforms are s een. There is no evidence of testicular torsion. Presence of hydroceles: Yes on left side Presence of varicoceles: No There is increased vascularity in the left testicle compared to right. IMPRESSION: 1. No evidence of testicular torsion or mass. 2. Findings suggestive of left epididymoorchitis. 3. Moderate sized left hydrocele.
[2023-04-04] MEDS ORDERED: cefTRIAXone 250 MG VIAL IM STA (20:26)
[2023-04-04] MEDS ORDERED: LACTATED RINGERS 1,000 ML IV SCH (20:30)
[2023-04-04] MEDS ORDERED: KETOROLAC 15 MG/ML 1 ML VIAL IVP STA (20:41)
[2023-04-04 20:50] LABS: Anisocytosis Slight; Hypochromasia Marked; MCH 17.9 pg (25.0-35.0); MCHC 26.2 g/dL (31.0-37.0); MCV 68.2 fL (80.0-100.0); Mean Platelet Volume 7.1; Microcytosis Marked; Platelet Count 263 k/uL (150-450); RBC 2.21 m/uL (4.30-5.90); WBC 5.5 k/uL (3.8-10.6)
[2023-04-04 21:00] LABS: HCT 15.1 % (39.0-53.0)
[2023-04-04] MEDS ORDERED: DOXYCYCLINE 100 MG in SODIUM CHLORIDE 0.9% 100 ML IVPB SCH (21:00)
[2023-04-04] MEDS ORDERED: LORazepam 2 MG/ML INJ IV PRN ×3 (21:17)
[2023-04-04] MEDS ORDERED: THIAMINE 100 MG/ML 2 ML VIAL IM STA (21:17)
[2023-04-04] MEDS ORDERED: MORPHINE SULFATE 4 MG/ML SYRINGE IVP STA (21:38)
[2023-04-04 21:39] LABS: Eosinophils # (M) 0.11 k/uL (0-0.7); Lymphocytes # (M) 2.53 k/uL (1.0-4.8); Monocytes # (M) 0.17 k/uL (0-1.0); Neutrophils % (M) 49 %; Nucleated Red Blood Cells 0 /100 WBC (0-0); Total Cells Counted 100
[2023-04-04 21:40] LABS: Target Cells Present; Tear Drop Cells Present
--- NOTE | 2023-04-04 23:19 | CT ---
EXAMINATION TYPE: CT abdomen pelvis w con CT DLP: 621.2 mGycm, Automated exposure control for dose reduction was used. DATE OF EXAM: 04/04/2023 10:36 PM COMPARISON: CT abdomen pelvis most recent from 06/29/2021, MRCP 07/11/2021 . CLINICAL INDICATION:Male, 32 years old with history of rectal bleeding, abdominal pain; abd pain rect al bleeding TECHNIQUE: Standard CT of the abdomen and pelvis following the administration of 100 cc of Isovue 3 00 IV contrast material. Coronal and sagittal reformats were performed. FINDINGS: LOWER CHEST: Unremarkable ABDOMEN LIVER: Nonspecific regions of hypoechogenicity adjacent to the gallbladder. Hepatomegaly redemonstrat ed. Diffuse low-attenuation of the parenchyma redemonstrated. GALLBLADDER AND BILE DUCTS: Contracted gallbladder. PANCREAS: Multiple coarse calcifications identified within the pancreas most prominent within the hea d. There is a cystic lesion measuring up to 1.8 cm in the pancreatic head which is new from prior exa m. New cystic lesion within the pancreatic body measuring up to 1.0 cm. There is some peripancreatic stranding around the tail. SPLEEN: Unremarkable. ADRENAL GLANDS: Unremarkable. KIDNEYS AND URETERS: No evidence of hydronephrosis or renal calculus. The kidneys enhance symmetrical ly. Contrast is demonstrated within both collecting systems on the delayed phase. PELVIS BLADDER: Unremarkable REPRODUCTIVE: Unremarkable. ABDOMEN & PELVIS STOMACH AND BOWEL: Trace fluid around the gastric fundus. Scattered colonic diverticulosis without ev idence for acute diverticulitis. There is circumferential wall thickening of the under distended hepa tic flexure. No evidence of bowel obstruction. There is again wondering cecum. PERITONEUM: No evidence of pneumoperitoneum. Small volume ascites in the left upper quadrant and in t he pelvis. An internal hernia suggested within the right lower quadrant again. VASCULATURE: No evidence of aortic aneurysm. MUSCULOSKELETAL: No acute osseous abnormalities LYMPH NODES: No gross evidence for lymphadenopathy. SOFT TISSUE/ABDOMINAL WALL: Unremarkable IMPRESSION: 1. Circumferential wall thickening of the under distended hepatic flexure. This can be seen with a n onspecific colitis versus under distention. 2. Inflammatory stranding/fluid involving the pancreatic tail and gastric fundus. This could be seen with a gastritis versus pancreatitis. Clinical correlation is recommended. 3. Findings suggesting chronic pancreatitis with 2 hypodense lesions within the pancreatic body and h ead which could represent pseudocysts versus other etiologies. Further evaluation with MRCP is recomm ended. 4. Small volume ascites.
[2023-04-04 23:37] VITALS: RESP 18
[2023-04-04] MEDS ORDERED: HYDROmorphone 0.5 MG/0.5 ML SYRINGE IVP STA (23:43)
[2023-04-05] MEDS ORDERED: HYDROmorphone 1 MG/ML 1 ML SYRINGE IVP STA (01:23)
[2023-04-05 01:27] VITALS: PULSE 92
[2023-04-05 01:45] VITALS: BP 129/86; TEMP 98.3
[2023-04-05] MEDS ORDERED: THIAMINE 100 MG TAB PO SCH (09:00)
== END 2023-04-05 02:01 | disposition short-term general hospital (02) ==
LOC: EC 18:00
DX: K85.90 Acute pancreatitis without necrosis or infection, unspecified (principal); K92.2 Gastrointestinal hemorrhage, unspecified; N43.3 Hydrocele, unspecified; N45.3 Epididymo-orchitis; R18.8 Other ascites; I10 Essential (primary) hypertension; F12.90 Cannabis use, unspecified, uncomplicated; F17.200 Nicotine dependence, unspecified, uncomplicated; Z88.5 Allergy status to narcotic agent; Z86.59 Personal history of other mental and behavioral disorders
CPT/HCPCS: 36415 ×2; 86900; 86901; 80053; 82150; 83605; 83690; 85025; 85610; 85730; 86850; 86920; 93975; 76870; 74177; 99285; 96372; 96365; 96366 ×3; 96367; 96361; 36430; 96375 ×3; 96376 ×2; P9016; J2270; J2405; J0696; J1170 ×3; Q9967; 96374

== ENCOUNTER 2023-06-13 06:44 | Observation (INO) | payer BC ==
[2023-06-13] MEDS ORDERED: ONDANSETRON 4 MG/2 ML VIAL IVP STA (07:10)
[2023-06-13] MEDS ORDERED: HYDROmorphone 0.5 MG/0.5 ML SYRINGE IVP STA (07:10)
[2023-06-13] MEDS ORDERED: SODIUM CHLORIDE 0.9% 2,000 ML IV ONE (07:10)
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
[2023-06-13 07:52] LABS: Anisocytosis Slight; Basophils # (A) 0.1 k/uL (0-0.2); Basophils % (A) 1 %; Eosinophils # (A) 0.1 k/uL (0-0.7); Eosinophils % (A) 2 %; HCT 35.9 % (39.0-53.0); HGB 11.6 gm/dL (13.0-17.5); Hypochromasia Slight; Lymphocytes # (A) 2.2 k/uL (1.0-4.8); Lymphocytes % (A) 35 %; MCH 26.8 pg (25.0-35.0); MCHC 32.4 g/dL (31.0-37.0); MCV 82.8 fL (80.0-100.0); Microcytosis Slight; Monocytes # (A) 0.6 k/uL (0-1.0); Monocytes % (A) 9 %; Neutrophils # (A) 3.3 k/uL (1.3-7.7); Neutrophils % (A) 52 %; Platelet Count 242 k/uL (150-450); RBC 4.33 m/uL (4.30-5.90); RDW 19.3 % (11.5-15.5); WBC 6.4 k/uL (3.8-10.6)
[2023-06-13 08:09] LABS: ALT 90 U/L (4-49); AST 154 U/L (17-59); African American GFR (CKD) >90 (>60 ml/min/1.73 sqM); Albumin 4.2 g/dL (3.5-5.0); Alcohol <10 mg/dL; Alkaline Phosphatase 294 U/L (38-126); Amylase 131 U/L (30-110); Anion Gap 12 mmol/L; Blood Urea Nitrogen 14 mg/dL (9-20); Calcium 9.3 mg/dL (8.4-10.2); Carbon Dioxide 26 mmol/L (22-30); Chloride 97 mmol/L (98-107); Glucose 125 mg/dL (74-99); Lipase 1215 U/L (23-300); Magnesium 1.4 mg/dL (1.6-2.3); Non-African American GFR(CKD) >90 (>60 ml/min/1.73 sqM); Potassium 3.3 mmol/L (3.5-5.1); Sodium 135 mmol/L (137-145); Total Bilirubin 1.1 mg/dL (0.2-1.3); Total Protein 7.5 g/dL (6.3-8.2)
[2023-06-13] MEDS ORDERED: KETOROLAC 15 MG/ML 1 ML VIAL IVP PRN (09:25)
[2023-06-13] MEDS ORDERED: NALOXONE 0.4 MG/ML 1 ML VIAL IV PRN (09:25)
[2023-06-13] MEDS ORDERED: ONDANSETRON 4 MG/2 ML VIAL IVP PRN (09:25)
[2023-06-13] MEDS ORDERED: HYDROmorphone 0.5 MG/0.5 ML SYRINGE IVP PRN (09:25)
[2023-06-13] MEDS: MAGNESIUM SULFATE-D5W PMX 1 GM in DEXTROSE/WATER 1 100ML.BAG IVPB SCH ×2 (09:38→10:45)
[2023-06-13] MEDS: SODIUM CHLORIDE 0.9% 1,000 ML IV SCH ×2 (09:40→20:08)
[2023-06-13] MEDS ORDERED: THIAMINE 100 MG/ML 2 ML VIAL IM STA (10:05)
[2023-06-13] MEDS ORDERED: LORazepam 1 MG TAB PO PRN ×3 (10:05)
[2023-06-13] MEDS ORDERED: LORazepam 0.5 MG TAB PO PRN (10:05)
[2023-06-13] MEDS: HYDROmorphone 1 MG/ML 1 ML SYRINGE IVP PRN ×5 (10:10→23:18)
--- NOTE | 2023-06-13 11:34 | US ---
EXAMINATION TYPE: US abdomen complete DATE OF EXAM: 06/13/2023 COMPARISON: CT abdomen and pelvis 04/04/2023, abdominal ultrasound 02/02/2022 CLINICAL INDICATION: Male, 33 years old with history of Elevated LFTs; Elevated LFTs, pancreatitis, a bdominal pain, nausea/vomiting TECHNIQUE: Multiple sonographic images of the abdomen are obtained. FINDINGS: EXAM MEASUREMENTS: Liver Length: 15.3 cm Gallbladder Wall: 0.3 cm CBD: 0.8 cm Spleen: 11.2 cm Right Kidney: 10.4 x 4.8 x 5.2 cm Left Kidney: 10.0 x 4.3 x 4.0 cm Pancreas: duct = 0.3cm. heterogeneous. 2 possible hypoechoic areas noted = 2.5 x 2.3 x 2.5cm and 1.8 x 1.0 x 1.6cm Liver: attenuating Gallbladder: no evidence of stones Evidence for sonographic Mata's sign: no CBD: dilated Spleen: wnl Right Kidney: no evidence of hydronephrosis Left Kidney: no evidence of hydronephrosis Upper IVC: wnl Abd Aorta: visualized portions appear wnl, distal and bifurcation obscured by overlying bowel gas Mildly prominent pancreatic duct. There are 2 hypoechoic regions within the pancreatic head and body corresponding to prior CT. Hyperattenuating appearance of the liver without focal lesion identified. Gallbladder demonstrates no stones, wall thickening, or stranding fluid. Per world travel counselor, negative so nographic Mata sign. Common bile duct is mildly dilated. The visualized portions of the IVC and abd ominal aorta are within normal limits. Spleen is within normal limits. Both kidneys demonstrate no ev idence of hydronephrosis, nephrolithiasis, or solid mass. IMPRESSION: 1. Common bile duct mild dilatation redemonstrated. Likely sequelae of chronic pancreatitis/stenosis . This can be further evaluated with MRCP as clinically indicated. 2. There are 2 pancreatic hypoechoic lesions correspond to prior CT and probably represent pseudocys ts in the setting of known chronic pancreatitis. 3. Hepatic steatosis.
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
[2023-06-13] MEDS: LIPASE 20,000/PROTEASE 63,000/AMYLASE 84,000 PO SCH (17:12)
[2023-06-13] MEDS ORDERED: Potassium Replacement Protocol 1 EACH MISC MISCELLANE PRN (18:27)
[2023-06-13] MEDS: POTASSIUM CHLORIDE ER 20 MEQ TAB.ER PO SCH (18:43)
[2023-06-14 01:28] VITALS: PULSE 61
[2023-06-14] MEDS: HYDROmorphone 1 MG/ML 1 ML SYRINGE IVP PRN ×3 (02:19→10:12)
[2023-06-14] MEDS: LIPASE 20,000/PROTEASE 63,000/AMYLASE 84,000 PO SCH ×2 (08:55→14:16)
[2023-06-14] MEDS ORDERED: PANTOPRAZOLE 40 MG/10 ML VIAL IV SCH (09:00)
[2023-06-14] MEDS ORDERED: THIAMINE 100 MG TAB PO SCH (09:00)
[2023-06-14 10:03] VITALS: BP 117/77; RESP 18; TEMP 98
[2023-06-14 13:01] LABS: Basophils # (A) 0.07 X 10*3/uL (0.00-0.10); Basophils % (A) 1.2 %; Eosinophils # (A) 0.22 X 10*3/uL (0.04-0.35); Eosinophils % (A) 3.7 %; HCT 32.8 % (39.6-50.0); HGB 9.7 d/dL (13.0-17.0); Lymphocytes # (A) 2.68 X 10*3/uL (0.90-5.00); Lymphocytes % (A) 44.9 %; MCH 25.5 pg (27.0-32.0); MCHC 29.6 d/dL (32.0-37.0); MCV 86.3 FL (80.0-97.0); Mean Platelet Volume 10.6 FL (9.5-12.2); Monocytes # (A) 0.73 X 10*3/uL (0.20-1.00); Monocytes % (A) 12.2 %; NRBC Per 100 WBC 0 X 10*3/uL (0.00-0.01); Neutrophils # (A) 2.26 X 10*3/uL (1.80-7.70); Neutrophils % (A) 37.8 %; Platelet Count 238 X 10*3/uL (140-440); RDW 19.8 % (11.5-14.5); WBC 5.97 X 10*3/uL (4.50-10.00)
[2023-06-14 13:29] LABS: ALT 58 U/L (10-49); AST 86 U/L (14-35); Albumin 3.4 d/dL (3.8-4.9); Albumin/Globulin Ratio 1.36 Ratio (1.60-3.17); Alkaline Phosphatase 224 U/L (41-126); Blood Urea Nitrogen 8.3 mg/dL (9.0-27.0); Calcium 8.3 mg/dL (8.7-10.3); Carbon Dioxide 19.9 mmol/L (21.6-31.8); Chloride 103 mmol/L (96-109); Globulin 2.5 d/dL (1.6-3.3); Glucose 67 mg/dL (70-110); Potassium 4.1 mmol/L (3.5-5.5); Sodium 138 mmol/L (135-145); Total Bilirubin 0.5 mg/dL (0.3-1.2); Total Protein 5.9 d/dL (6.2-8.2)
[2023-06-14] MEDS: SODIUM CHLORIDE 0.9% 1,000 ML IV SCH (14:15)
--- NOTE | 2023-06-14 14:27 | P.DS ---
Providers Date of admission: 06/13/23 08:59 Expected date of discharge: 06/14/23 Attending physician: Dg Arnold MD Primary care physician: Shahnaz Cardona [facility] Course: Discharge diagnoses; Acute alcoholic pancreatitis Alcohol abuse Elevated LFTs Hypomagnesemia Hospital course; patient is a 33-year-old gentleman with past medical history significant for alcohol abuse, pancreatitis who presented to the ER because of abdominal pain. Patient history of previous admissions for alcohol-induced hepatitis. Patient stated that he drank recently at a wedding and following that started developing abdominal pain, epigastric in location, nonradiating, severe in intensity. Abdominal pain associated with nausea and vomiting. Denies any abnormal bowel movements. Because of this abdominal pain, patient came to the ER Initial lab work done in the ER showed WBC 6.4, hemoglobin 11.6, platelet count 242, sodium 135, potassium 3.3, BUN 14, creatinine 0.49, glucose 125, magnesium 1.4 AST 154, ALT 90, alkaline phosphatase 294 lipase 1215 Patient admitted to medicine service 06/14. Patient seen and examined. Abdominal pain improved. Currently tolerating regular diet. Being discharged to follow-up outpatient with PCP PHYSICAL EXAMINATION: GENERAL: The patient is alert and oriented x3, not in any acute distress. Well developed, well nourished. HEENT: Pupils are round and equally reacting to light. EOMI. No scleral icterus. No conjunctival pallor. Normocephalic, atraumatic. No pharyngeal erythema. No thyromegaly. CARDIOVASCULAR: S1 and S2 present. No murmurs, rubs, or gallops. PULMONARY: Chest is clear to auscultation, no wheezing or crackles. ABDOMEN: Soft, nontender, nondistended, normoactive bowel sounds. No palpable organomegaly. MUSCULOSKELETAL: No joint swelling or deformity. EXTREMITIES: No cyanosis, clubbing, or pedal edema. NEUROLOGICAL: Gross neurological examination did not reveal any focal deficits. SKIN: No rashes. Dictation was produced using [employer] dictation software. please excuse any grammatical, word or spelling errors. Patient Condition at Discharge: Fair Plan - Discharge Summary New Discharge Prescriptions: New Pantoprazole Sodium [Protonix] 20 mg PO AC-BRKFST #30 tab Thiamine [Vitamin B-1] 100 mg PO DAILY #30 tab Lipase/Protease/Amylase [Zenpep Dr 20,000 Unit Capsule] 1 each PO AC-TID #30 cap Continue Multivitamins, Thera [Multivitamin (formulary)] 1 tab PO DAILY Discharge Medication List Multivitamins, Thera [Multivitamin (formulary)] 1 tab PO DAILY 06/13/23 [History] Lipase/Protease/Amylase [Zenpep 20,000 Unit Capsule] 1 each PO AC-TID #30 cap 06/14/23 [Rx] Pantoprazole Sodium [Protonix] 20 mg PO AC-BRKFST #30 tab 06/14/23 [Rx] Thiamine [Vitamin B-1] 100 mg PO DAILY #30 tab 06/14/23 [Rx] Follow up Appointment(s)/Referral(s): Shahnaz Cardona III, MD [Primary Care Provider] - 1-2 days Patient Instructions/Handouts: Pancreatitis (DC) Discharge Disposition: HOME SELF-CARE
== END 2023-06-14 14:13 | disposition home or self-care (01) ==
LOC: EC 06:44 → 6NMEDSUR 08:59
PROVIDERS: ADMIT Internal Medicine; ATTEND Internal Medicine
DX: K85.20 Alcohol induced acute pancreatitis without necrosis or infection (principal); F10.10 Alcohol abuse, uncomplicated; R74.8 Abnormal levels of other serum enzymes; E83.42 Hypomagnesemia; K70.10 Alcoholic hepatitis without ascites; I10 Essential (primary) hypertension; Z87.81 Personal history of (healed) traumatic fracture; S92.901D Unspecified fracture of right foot, subsequent encounter for fracture with routine healing; F90.9 Attention-deficit hyperactivity disorder, unspecified type; F32.A Depression, unspecified; F17.200 Nicotine dependence, unspecified, uncomplicated; Z82.49 Family history of ischemic heart disease and other diseases of the circulatory system; Z79.899 Other long term (current) drug therapy; Z88.5 Allergy status to narcotic agent
CPT/HCPCS: 96376 ×3; 96361 ×3; 96366; 96365; 96372; 96375; 99285; 36415; 80053 ×2; 82150; 83605; 83690; 83735; 84132; 85025 ×2; 80320; 76700; G0378 ×2; J3411; J2405; J1170 ×3; J3475; C9113

== ENCOUNTER 2023-10-09 13:15 | Inpatient (IN) | payer BC ==
[2023-10-09] MEDS ORDERED: ONDANSETRON 4 MG/2 ML VIAL IVP STA (13:29)
[2023-10-09] MEDS ORDERED: SODIUM CHLORIDE 0.9% 1,000 ML IV STA (13:29)
[2023-10-09] MEDS ORDERED: SODIUM CHLORIDE 0.9% 500 ML 500 ML IV STA (13:29)
[2023-10-09] MEDS ORDERED: HYDROmorphone 0.5 MG/0.5 ML SYRINGE IVP STA (13:32)
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
[2023-10-09 13:53] LABS: Anisocytosis Slight; Basophils # (A) 0.1 k/uL (0-0.2); Basophils % (A) 0 %; Eosinophils % (A) 0 %; HCT 32.2 % (39.0-53.0); HGB 9.2 gm/dL (13.0-17.5); Hypochromasia Marked; Lymphocytes # (A) 3.2 k/uL (1.0-4.8); Lymphocytes % (A) 29 %; MCH 23.9 pg (25.0-35.0); MCHC 28.6 g/dL (31.0-37.0); MCV 83.7 fL (80.0-100.0); Mean Platelet Volume 8.1; Monocytes # (A) 0.8 k/uL (0-1.0); Monocytes % (A) 7 %; Neutrophils # (A) 6.6 k/uL (1.3-7.7); Neutrophils % (A) 61 %; Platelet Count 255 k/uL (150-450); RBC 3.84 m/uL (4.30-5.90); RDW 17.3 % (11.5-15.5); WBC 10.9 k/uL (3.8-10.6)
[2023-10-09 14:11] LABS: ALT 64 U/L (4-49); AST 103 U/L (17-59); African American GFR (CKD) >90 (>60 ml/min/1.73 sqM); Albumin 5.1 g/dL (3.5-5.0); Alkaline Phosphatase 231 U/L (38-126); Amylase 251 U/L (30-110); Anion Gap 29 mmol/L; Blood Urea Nitrogen 12 mg/dL (9-20); Calcium 9.1 mg/dL (8.4-10.2); Chloride 99 mmol/L (98-107); Glucose 134 mg/dL (74-99); Non-African American GFR(CKD) >90 (>60 ml/min/1.73 sqM); Potassium 4.5 mmol/L (3.5-5.1); Sodium 136 mmol/L (137-145); Total Bilirubin 1.4 mg/dL (0.2-1.3); Total Protein 8.1 g/dL (6.3-8.2)
[2023-10-09 14:18] LABS: Lipase 1966 U/L (23-300)
[2023-10-09 14:20] LABS: Alcohol 183 mg/dL; Carbon Dioxide 8 mmol/L (22-30)
[2023-10-09] MEDS ORDERED: SODIUM CHLORIDE 0.9% 1,000 ML IV ONE (15:21)
[2023-10-09] MEDS ORDERED: HYDROmorphone 0.5 MG/0.5 ML SYRINGE IVP PRN ×2 (15:23→17:10)
[2023-10-09] MEDS ORDERED: LORazepam 1 MG TAB PO PRN ×3 (15:24)
[2023-10-09] MEDS ORDERED: LORazepam 0.5 MG TAB PO PRN (15:24)
[2023-10-09] MEDS ORDERED: THIAMINE 100 MG/ML 2 ML VIAL IM STA (15:24)
[2023-10-09] MEDS ORDERED: LORazepam 2 MG/ML INJ IV PRN ×3 (16:57)
[2023-10-09] MEDS ORDERED: NALOXONE 0.4 MG/ML 1 ML VIAL IV PRN (17:07)
[2023-10-09] MEDS ORDERED: ACETAMINOPHEN TAB 325 MG TAB PO PRN (17:10)
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
[2023-10-09 17:44] LABS: Anisocytosis Slight; HCT 28.6 % (39.0-53.0); Hypochromasia Marked; MCH 23.7 pg (25.0-35.0); MCV 84.7 fL (80.0-100.0); Mean Platelet Volume 8.4; Platelet Count 169 k/uL (150-450); RBC 3.38 m/uL (4.30-5.90); RDW 17.3 % (11.5-15.5); WBC 7.8 k/uL (3.8-10.6)
[2023-10-09 17:48] LABS: VBG PH 7.21 (7.31-7.41)
[2023-10-09] MEDS: chlordiazePOXIDE 25 MG CAP PO SCH ×2 (19:06→22:22)
--- NOTE | 2023-10-09 19:06 | CT ---
EXAMINATION TYPE: CT abdomen pelvis w con DATE OF EXAM: 10/09/2023 COMPARISON: 06/30/2023 INDICATION: nausea,upper abdominal pain radiating into back. hx of pancreatititis DLP: 529.3 mGycm, Automated exposure control for dose reduction was used. CONTRAST: 100ml mL of Isovue 300. Study performed without Oral Contrast TECHNIQUE: Axial images were obtained from above the diaphragm to the pubic rami in the axial plane a t 5 mm thick sections. Reconstructed images are reviewed on the computer in the coronal plane. FINDINGS: Limited CT sections are obtained the lung bases. The lung bases are clear. CT ABDOMEN: Liver: Hepatomegaly is present. There is moderate fatty infiltration to the liver. Spleen: Normal Pancreas: Multiple calcifications are within the head of the pancreas. There are cysts within the bod y of the pancreas. Pseudocyst formation should be considered within the differential. Other etiologie s persists would include benign and malignant etiologies. These have increased in size over the inter denise. Cyst at the head of the pancreast measures 1.7 cm. 2 cysts within the body of the pancreas measu re approximately 2.5 cm distal body 8.0 cm. Previous measurement 1.1 cm. The cystlike area or fluid a t the tail of the pancreas appears stable. Adrenal glands: The adrenal glands are normal. Gallbladder: Normal Kidneys: No masses are evident. No hydronephrosis is present. No cysts are present. Delayed images were obtained through the kidneys, which remain unremarkable. Aorta: Normal Inferior vena cava: Normal. CT PELVIS: Malrotation is present. Loops of bowel are visualized without oral contrast appeared nondilated. [place] n appears normal caliber. Appendix: Normal as visualized. Urinary bladder: Normal. Genitourinary structures: Prostate appears somewhat prominent. Osseous structures: No suspicious lytic or sclerotic lesions. IMPRESSION: 1. Enlarging cystic structures within the pancreas. This is an interval change from the most recent comparison of 06/30/2023. Pseudocyst formation, cyst associated with benign and malignant etiologies s hould be considered. 2. Chronic pancreatitis. 3. Moderate fatty location of the enlarged liver.
[2023-10-09] MEDS: LACTATED RINGERS 1,000 ML IV SCH ×7 (19:07→22:26)
[2023-10-09] MEDS: HYDROmorphone 1 MG/ML 1 ML SYRINGE IVP PRN ×2 (19:29→22:22)
[2023-10-09] MEDS: ONDANSETRON 4 MG/2 ML VIAL IVP PRN (22:23)
[2023-10-09 22:43] LABS: Anisocytosis Slight; HCT 26.7 % (39.0-53.0); HGB 7.6 gm/dL (13.0-17.5); Hypochromasia Marked; MCH 23.6 pg (25.0-35.0); MCHC 28.3 g/dL (31.0-37.0); MCV 83.4 fL (80.0-100.0); Mean Platelet Volume 7.8; Platelet Count 156 k/uL (150-450); Poikilocytosis Slight; RDW 17.4 % (11.5-15.5); WBC 4.9 k/uL (3.8-10.6)
[2023-10-10] MEDS: HYDROmorphone 1 MG/ML 1 ML SYRINGE IVP PRN ×8 (01:35→22:41)
[2023-10-10] MEDS: LACTATED RINGERS 1,000 ML IV SCH ×9 (01:35→16:41)
[2023-10-10] MEDS: chlordiazePOXIDE 25 MG CAP PO SCH ×3 (09:48→19:49)
[2023-10-10] MEDS: ENOXAPARIN 40 MG/0.4 ML SYRINGE SQ SCH (09:49)
[2023-10-10] MEDS: FOLIC ACID 1 MG TAB PO SCH (09:49)
[2023-10-10] MEDS: MULTIVITAMINS, THERA 1 EACH TAB PO SCH (09:49)
[2023-10-10] MEDS: THIAMINE 100 MG TAB PO SCH (09:49)
[2023-10-10 09:56] LABS: INR 1.1 (<1.2); Prothrombin Time 11.7 sec (10.0-12.5)
[2023-10-10 11:06] LABS: HCT 26.6 % (39.6-50.0); HGB 7.2 g/dL (13.0-17.0); MCH 22.3 pg (27.0-32.0); MCHC 27.1 g/dL (32.0-37.0); MCV 82.4 FL (80.0-97.0); Mean Platelet Volume 9.6 FL (9.5-12.2); NRBC Per 100 WBC 0 X 10*3/uL (0.00-0.01); Platelet Count 155 X 10*3/uL (140-440); RBC 3.23 X 10*6/uL (4.40-5.60); RDW 17.1 % (11.5-14.5); WBC 5.15 X 10*3/uL (4.50-10.00)
[2023-10-10 11:33] LABS: ALT 47 U/L (10-49); AST 70 U/L (14-35); Albumin 3.9 g/dL (3.8-4.9); Alkaline Phosphatase 171 U/L (41-126); BUN/Creat Ratio 13.17 Ratio (12.00-20.00); Blood Urea Nitrogen 7.9 mg/dL (9.0-27.0); Calcium 8.7 mg/dL (8.7-10.3); Carbon Dioxide 19.6 mmol/L (21.6-31.8); Chloride 97 mmol/L (96-109); Globulin 2.3 g/dL (1.6-3.3); Glucose 84 mg/dL (70-110); Magnesium 1.7 mg/dL (1.5-2.4); Potassium 3.5 mmol/L (3.5-5.5); Sodium 132 mmol/L (135-145); Total Bilirubin 0.8 mg/dL (0.3-1.2); Total Protein 6.2 g/dL (6.2-8.2)
--- NOTE | 2023-10-10 11:35 | P.PN ---
Subjective Progress Note Date: 10/10/23 Pt still c/o significant abdominal pain, predominantly epigastric Gen: awake, alert HEENT: normocephalic, atraumatic, good hearing acuity, moist mucous membranes Resp: good air exchange, breathing comfortably with no accessory muscle use CVS: good distal perfusion x 4, GI: Voluntary guarding, tenderness to palpation in the epigastrium, nondistended : no SPT, no CVAT, garcia catheter not present MSK: no pitting edema, no clubbing Neuro: non-focal, moving all extremities Psych: cooperative, euthymic mood Hospital course: Patient is a 33-year-old with known history of alcoholism, with hx of pancre atitis complicated by pancreatic pseudocyst, nicotine dependency, and depression who presented to the emergency department with complaints of nausea, vomikting, nd adbominal pain. On arrival to the emergency department he underwent an extensive evaluation. Initial vitals were remarkable for a pulse of 107, blood pressure 172/113. Initial laboratory analysis included CBC, CMP, amylase, lipase, and serum alcohol which were remarkable for white blood cell count 10.9, hemoglobin 9.2, sodium 136, carbon dioxide 8, anion gap 29, lactic acid 3.4, total bilirubin 1.4, AST 103, ALT 64, amylase 251, and lipase of 1966 with serum alcohol 183. In the emergency department he got 1.5 L of fluid, Dilaudid, Zofran, and B1. Arrangements were made for admission. Assessment/Plan: Acute on chronic pancreatitis secondary to alcohol use Transaminitis, suspect secondary to alcohol intake -Lactated Ringer's 130 mL/hr after 1 L bolus -Dilaudid 0.5 mg IV push every 3 hours as needed for moderate pain, 1 mg every 3 hours as needed for severe pain. Monitor for respiratory depression and signs of sedation -Nothing by mouth, if no improvement in pain by tomorrow, will start NGT for enteral feeding -Consult GI, appreciate recs -Zofran 4 mg IV every 6 hours as needed for nausea and vomiting -With patient's history of pancreatic pseudocyst will check CT abdomen and pelvis = enlarging cystic structures, bening and malignant etiologies under consideration -will likely need MRCP, await GI recs -Repeat CMP today is still pending Anemia Bright Red Blood Per Rectum - likely related to combination of BM suppression from ETOH and AoCD from chronic pancreatitis -Iron studies ordered -B12/Folate ordered -UA, LFTs, Haptoglobin, retic count -Serial CBCs -Consult GI -Nothing by mouth Alcohol dependency with impending withdrawal -Start Librium 25 mg by mouth 3 times daily -CIWA protocol using Ativan. Monitor for signs of sedation -Thiamine 100 mg daily, folic acid 1 mg daily Anion gap metabolic acidosis. Suspect alcoholic ketosis -Lactic acid elevated to 2.9, pH on VBG was 7.21 The patient is admitted with an anticipated greater than 2 midnight stay for evaluation of pancreatitis complicated by alcohol withdrawal and pancreatic pseudocyst. Surrogate decision-maker: CODE STATUS:Full code Anticipated discharge date: Pending Clinical Course Anticipated discharge place: Pending Clinical Course . Objective - Vital Signs Vital signs: Vital Signs Temp 97.7 F 10/10/23 07:10 Pulse 71 10/10/23 07:10 Resp 19 10/10/23 07:10 BP 141/90 10/10/23 07:10 Pulse Ox 99 10/10/23 07:10 FiO2 Intake & Output 10/09/23 10/10/23 10/10/23 18:59 06:59 18:59 Weight 54.431 kg Other: # Voids 1 1 - Labs CBC & Chem 7: 10/10/23 07:04 10/09/23 13:43 Labs: Abnormal Lab Results - Last 24 Hours (Table) 10/09/23 10/09/23 10/09/23 Range/Units 13:43 13:43 13:43 WBC 10.9 H (3.8-10.6) k/uL RBC 3.84 L (4.30-5.90) m/uL Hgb 9.2 L (13.0-17.5) gm/dL Hct 32.2 L (39.0-53.0) % MCH 23.9 L (25.0-35.0) pg MCHC 28.6 L (31.0-37.0) g/dL RDW 17.3 H (11.5-15.5) % VBG pH (7.31-7.41) VBG pCO2 (37-51) mmHg VBG HCO3 (24-28) mmol/L Sodium 136 L (137-145) mmol/L Carbon Dioxide 8 L* (22-30) mmol/L Creatinine 0.60 L (0.66-1.25) mg/dL Glucose 134 H (74-99) mg/dL Plasma Lactic Acid Satish 3.4 H* (0.7-2.0) mmol/L Total Bilirubin 1.4 H (0.2-1.3) mg/dL AST 103 H (17-59) U/L ALT 64 H (4-49) U/L Alkaline Phosphatase 231 H (38-126) U/L Albumin 5.1 H (3.5-5.0) g/dL Amylase 251 H (30-110) U/L Lipase 1966 H (23-300) U/L 10/09/23 10/09/23 10/09/23 Range/Units 17:12 17:12 22:30 WBC (3.8-10.6) k/uL RBC 3.38 L 3.20 L (4.30-5.90) m/uL Hgb 8.0 L 7.6 L (13.0-17.5) gm/dL Hct 28.6 L 26.7 L (39.0-53.0) % MCH 23.7 L 23.6 L (25.0-35.0) pg MCHC 28.0 L 28.3 L (31.0-37.0) g/dL RDW 17.3 H 17.4 H (11.5-15.5) % VBG pH 7.21 L (7.31-7.41) VBG pCO2 36 L (37-51) mmHg VBG HCO3 14 L (24-28) mmol/L Sodium (137-145) mmol/L Carbon Dioxide (22-30) mmol/L Creatinine (0.66-1.25) mg/dL Glucose (74-99) mg/dL Plasma Lactic Acid Satish (0.7-2.0) mmol/L Total Bilirubin (0.2-1.3) mg/dL AST (17-59) U/L ALT (4-49) U/L Alkaline Phosphatase (38-126) U/L Albumin (3.5-5.0) g/dL Amylase (30-110) U/L Lipase (23-300) U/L 10/10/23 Range/Units 07:04 WBC (3.8-10.6) k/uL RBC 3.23 L (4.30-5.90) m/uL Hgb 7.2 L (13.0-17.5) gm/dL Hct 26.6 L (39.0-53.0) % MCH 22.3 L (25.0-35.0) pg MCHC 27.1 L (31.0-37.0) g/dL RDW 17.1 H (11.5-15.5) % VBG pH (7.31-7.41) VBG pCO2 (37-51) mmHg VBG HCO3 (24-28) mmol/L Sodium (137-145) mmol/L Carbon Dioxide (22-30) mmol/L Creatinine (0.66-1.25) mg/dL Glucose (74-99) mg/dL Plasma Lactic Acid Satish (0.7-2.0) mmol/L Total Bilirubin (0.2-1.3) mg/dL AST (17-59) U/L ALT (4-49) U/L Alkaline Phosphatase (38-126) U/L Albumin (3.5-5.0) g/dL Amylase (30-110) U/L Lipase (23-300) U/L
[2023-10-10 11:42] LABS: Phosphorus 0.9 mg/dL (2.4-5.1)
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
[2023-10-10 12:26] LABS: Reticulocyte % 2.4 % (0.5-2.0)
[2023-10-10] MEDS ORDERED: SODIUM PHOSPHATE 60 MMOL in DEXTROSE 5% IN WATER 250 ML IVPB ONE ×2 (12:30)
[2023-10-10] MEDS: POTAS-SOD-PHOS 278-164-250 MG 1 EACH PACKET PO SCH ×3 (12:38→22:15)
[2023-10-10 12:46] LABS: Appearance,Urine Clear (Clear); Color,Urine Orange
[2023-10-10 12:49] LABS: Bilirubin,Urine 2+ (Negative); Blood,Urine Trace (Negative); Glucose,Urine (UA) Negative (Negative); Ketones,Urine 4+ (Negative); Leukocyte Esterase,Urine Negative (Negative); Nitrite,Urine Negative (Negative); Protein,Urine Trace (Negative); Specific Gravity,Urine 1.025 (1.001-1.035); Urobilinogen,Urine 0.2 mg/dL (<2.0)
[2023-10-10 13:10] LABS: Mucus,Urine Rare /hpf; WBC,Urine 1 /hpf (0-5)
[2023-10-10 16:31] LABS: % Iron Saturation 8.41 (15.00-50.00); Ferritin 62.5 ng/mL (22.0-322.0)
[2023-10-10 19:31] LABS: African American GFR (CKD) >90 (>60 ml/min/1.73 sqM); Anion Gap 20 mmol/L; Blood Urea Nitrogen 6 mg/dL (9-20); Calcium 8.4 mg/dL (8.4-10.2); Carbon Dioxide 22 mmol/L (22-30); Chloride 93 mmol/L (98-107); Glucose 116 mg/dL (74-99); Non-African American GFR(CKD) >90 (>60 ml/min/1.73 sqM); Phosphorus 5.6 mg/dL (2.5-4.5); Potassium 3.3 mmol/L (3.5-5.1); Sodium 135 mmol/L (137-145)
[2023-10-10] MEDS: ONDANSETRON 4 MG/2 ML VIAL IVP PRN (20:04)
[2023-10-11] MEDS: HYDROmorphone 1 MG/ML 1 ML SYRINGE IVP PRN ×8 (01:23→23:17)
[2023-10-11] MEDS: ONDANSETRON 4 MG/2 ML VIAL IVP PRN ×2 (03:44→10:07)
[2023-10-11] MEDS: LACTATED RINGERS 1,000 ML IV SCH ×4 (03:45→23:17)
[2023-10-11] MEDS: POTAS-SOD-PHOS 278-164-250 MG 1 EACH PACKET PO SCH ×3 (07:52→21:15)
[2023-10-11] MEDS: ENOXAPARIN 40 MG/0.4 ML SYRINGE SQ SCH (08:03)
[2023-10-11] MEDS: MULTIVITAMINS, THERA 1 EACH TAB PO SCH (08:03)
[2023-10-11] MEDS: chlordiazePOXIDE 25 MG CAP PO SCH ×3 (08:03→21:15)
[2023-10-11] MEDS: FOLIC ACID 1 MG TAB PO SCH (08:03)
[2023-10-11] MEDS: THIAMINE 100 MG TAB PO SCH (08:03)
[2023-10-11 11:32] LABS: HCT 31.7 % (39.6-50.0); HGB 8.9 g/dL (13.0-17.0); MCH 22.8 pg (27.0-32.0); MCHC 28.1 g/dL (32.0-37.0); MCV 81.1 FL (80.0-97.0); Mean Platelet Volume 10.2 FL (9.5-12.2); NRBC Per 100 WBC 0 X 10*3/uL (0.00-0.01); Platelet Count 196 X 10*3/uL (140-440); RBC 3.91 X 10*6/uL (4.40-5.60); RDW 17.7 % (11.5-14.5); WBC 5.87 X 10*3/uL (4.50-10.00)
[2023-10-11 11:45] LABS: Lipase 332 U/L (14-60)
[2023-10-11 11:47] LABS: Blood Urea Nitrogen 4.9 mg/dL (9.0-27.0); Glucose 109 mg/dL (70-110)
[2023-10-11 11:48] LABS: ALT 51 U/L (10-49); AST 100 U/L (14-35); Albumin 4.5 g/dL (3.8-4.9); Albumin/Globulin Ratio 1.67 Ratio (1.60-3.17); Alkaline Phosphatase 220 U/L (41-126); Calcium 9.8 mg/dL (8.7-10.3); Carbon Dioxide 27.6 mmol/L (21.6-31.8); Chloride 94 mmol/L (96-109); Globulin 2.7 g/dL (1.6-3.3); Potassium 3.7 mmol/L (3.5-5.5); Sodium 137 mmol/L (135-145); Total Bilirubin 0.8 mg/dL (0.3-1.2); Total Protein 7.2 g/dL (6.2-8.2)
[2023-10-11] MEDS ORDERED: FERROUS SULFATE 325 MG TAB PO SCH (12:30)
--- NOTE | 2023-10-11 13:08 | P.PN ---
Subjective Progress Note Date: 10/11/23 Principal diagnosis: Pancreatitis This is a 33-year-old male who presented to the emergency department yesterday with complaints of abdominal pain. He has a significant history of alcohol abuse along with acute on chronic pancreatitis with pseudocyst. He came in with complaints of epigastric abdominal pain with nausea and vomiting. Also had reported that he was having multiple bowel movements with bright red blood. With reported history of hemorrhoids in the past. He does have a history of previous ERCP done 07/12/2021 for dilated common bile duct that showed biliary dilation with no filling defects or stricture but there was a smooth tapering of the distal common bile duct. He also underwent EGD and colonoscopy in July [address] Martin with the EGD showing mild antral gastritis and colonoscopy was normal. He was admitted for acute pancreatitis. CT of the abdomen and pelvis showing acute pancreatitis with pseudocyst that are enlarging compared to most recent computed tomography scan done on 06/30/2023, moderate. Liver and chronic pancreatitis. Gastroenterology was consulted for pancreatitis as well as lower GI bleed. Patient states he has a has cut down from a fifth a day to a pint a day of alcohol. He had a blood alcohol level of 183 on admission, states abdominal pain is consistent with pancreatitis in the past. Vomiting has improved however he still having significant amount of pain. He has not had any further events or rectal bleeding since his bowel movement yesterday evening. On today's labs WBC 5.1 hemoglobin 7.2 hematocrit 26 platelet count 155,000 INR 0.1 total bilirubin 0.8 AST 70 ALT 47 alkaline phosphatase 171 Admitting labs WBC 7.6 hematocrit 26.7 platelet count 156,000, sodium 136 potassium 4.5 BUN 12 creatinine 0.6 total bilirubin 1.4 AST 103 ALT 64 alkaline phosphatase 231 amylase 251 lipase 1966 serum alcohol 183 10/11/2023 Patient is seen and examined today as a follow-up. He is lying in bed. He has been on clear liquid diet states he is tolerating that pretty well. No nausea or vomiting. He states abdominal pain is improved some. He's been afebrile. Today's labs WBC 5.8 hemoglobin 8.9 hematocrit 31 platelet count 196,000 total bilirubin 0.8 AST 100 ALT 51 alkaline phosphatase 220 lipase 332 Objective - Vital Signs Vital signs: Vital Signs Temp 97.9 F 10/11/23 07:49 Pulse 86 10/11/23 07:49 Resp 18 10/11/23 07:49 BP 147/89 10/11/23 07:49 Pulse Ox 97 10/11/23 07:49 FiO2 Intake & Output 10/10/23 10/11/23 10/11/23 18:59 06:59 18:59 Other: # Voids 3 2 1 - Exam General appearance: The patient is alert, oriented, appears in no acute distress. HET: Head is normocephalic and atraumatic. Conjunctiva pink. Sclera anicteric. Neck: Supple without lymphadenopathy. Abdomen: Soft, right upper quadrant and epigastric tenderness, nondistended with bowel sounds. No guarding or rigidity. Extremities: Normal skin color and turgor. No pedal edema Skin: No rashes, no jaundice Neurological: No focal deficits. Alert and oriented. - Labs CBC & Chem 7: 10/11/23 06:00 10/11/23 06:00 Labs: Abnormal Lab Results - Last 24 Hours (Table) 10/10/23 10/10/23 10/10/23 Range/Units 07:04 07:04 11:50 RBC 3.23 L (4.40-5.60) X 10*6/uL Hgb 7.2 L (13.0-17.0) g/dL Hct 26.6 L (39.6-50.0) % MCH 22.3 L (27.0-32.0) pg MCHC 27.1 L (32.0-37.0) g/dL RDW 17.1 H (11.5-14.5) % Retic Count 2.4 H (0.5-2.0) % Sodium 132 L (135-145) mmol/L Potassium (3.5-5.1) mmol/L Chloride (98-107) mmol/L Carbon Dioxide 19.6 L (21.6-31.8) mmol/L Anion Gap 15.40 H (4.00-12.00) mmol/L BUN 7.9 L (9.0-27.0) mg/dL Creatinine (0.66-1.25) mg/dL Glucose (74-99) mg/dL Phosphorus 0.9 A* (2.4-5.1) mg/dL Iron (65-175) UG/DL % Saturation (15.00-50.00) AST 70 H (14-35) U/L Alkaline Phosphatase 171 H (41-126) U/L Urine Protein (Negative) Urine Ketones (Negative) Urine Bilirubin (Negative) Urine Mucus (None) /hpf 10/10/23 10/10/23 10/10/23 Range/Units 11:50 12:30 18:22 RBC (4.40-5.60) X 10*6/uL Hgb (13.0-17.0) g/dL Hct (39.6-50.0) % MCH (27.0-32.0) pg MCHC (32.0-37.0) g/dL RDW (11.5-14.5) % Retic Count (0.5-2.0) % Sodium 135 L (135-145) mmol/L Potassium 3.3 L (3.5-5.1) mmol/L Chloride 93 L (98-107) mmol/L Carbon Dioxide (21.6-31.8) mmol/L Anion Gap (4.00-12.00) mmol/L BUN 6 L (9.0-27.0) mg/dL Creatinine 0.39 L (0.66-1.25) mg/dL Glucose 116 H (74-99) mg/dL Phosphorus 5.6 H (2.4-5.1) mg/dL Iron 37 L (65-175) UG/DL % Saturation 8.41 L (15.00-50.00) AST (14-35) U/L Alkaline Phosphatase (41-126) U/L Urine Protein Trace H (Negative) Urine Ketones 4+ H (Negative) Urine Bilirubin 2+ H (Negative) Urine Mucus Rare H (None) /hpf Assessment and Plan (1) Pancreatic pseudocyst Narrative/Plan: 33-year-old male with recurrent alcohol abuse and history of chronic and recurrent acute pancreatitis with pseudocyst he continues to drink daily, states he has cut back from up with a day to a pint a day. His been hospitalized multiple times for pancreatitis and has had endoscopic evaluation for abdominal pain and nausea and vomiting in the past as well as ERCP for concern for CBD dilation. There was a CBD dilation with no filling defects or strictures. There was a smooth tapering of the distal CBD. CT abdomen and pelvis consistent with acute pancreatitis with pseudocyst however pseudocyst enlarging and does report this could be associated with benign and malignant etiologies to be considered. Pseudocyst growth related to continued alcohol consumption. This was discussed with patient that if he continues to drink acidosis will continue to enlarge he will need to be transferred to a tertiary center at that time and that he would have to undergo ERCP with EUS and pseudocyst drainage. There is no indication at this time for endoscopic evaluation. No further workup indicated at this time. Continue to recommend alcohol abstinence and recommend inpatient rehab however patient states he is not interested. Current Visit: No Status: Acute Code(s): K86.3 - PSEUDOCYST OF PANCREAS SNOMED Code(s): 120329645 (2) Alcohol intoxication Current Visit: Yes Status: Acute Code(s): F10.929 - ALCOHOL USE, UNSPECIFIED WITH INTOXICATION, UNSPECIFIED SNOMED Code(s): 23840973 (3) Abdominal pain Current Visit: No Status: Acute Code(s): R10.9 - UNSPECIFIED ABDOMINAL PAIN SNOMED Code(s): 79358190 (4) Rectal bleeding Narrative/Plan: Patient was with complaints of multiple loose bowel movements with rectal bleeding. Reported as bright red last one yesterday evening. Reports previous history of hemorrhoids in the past. Most recent colonoscopy done in July 2021 which was normal patient also had an EGD during that time had mild antral gastritis with no evidence of any active GI bleed. Bleeding has subsided, anemia consistent with alcohol liver disease, will continue to monitor for GI bleed. The patient continues with bleeding will consider possible colonoscopy. Current Visit: Yes Status: Acute Code(s): K62.5 - HEMORRHAGE OF ANUS AND RECTUM SNOMED Code(s): 98560006 Plan: 1. Continue symptomatic and supportive care 2. Aggressive IV hydration 3. Pain medication as needed 4. Antiemetics as needed 5. Protonix 40 mg daily for GI prophylaxis 6. Advanced to full liquid diet and advance as tolerated 7. Discussed with patient importance of alcohol abstinence. Discussed possible inpatient rehab and patient states he is not interested in rehab. 8. Return for alcohol withdrawal symptoms 9. There is no plans for endoscopic evaluation, enlarged siderosis related to drinking. Discussed again the importance of alcohol abstinence. Patient c ontinues to drink likely pseudocysts will enlarge and will need to follow-up with tertiary center for EUS 10. Anticipate patient will be ready for discharge tomorrow Thank you for allowing us to participate in the care of the patient, the GI service will sign off, gastroenterology will not be available at the hospital this weekend and through next week. If further evaluation by gastroenterology is required the patient will need transfer as per the primary team's discretion. Dr. Alissa Martin I agree with the dictator's note, documented as a scribe by Chery Street.
[2023-10-11 13:28] VITALS: BMI 15.8
[2023-10-11] MEDS ORDERED: NICOTINE 14MG/24HR PATCH TRANSDERM SCH (14:30)
[2023-10-11 14:39] VITALS: TEMP 97.5
--- NOTE | 2023-10-11 16:44 | P.PN ---
Subjective Progress Note Date: 10/11/23 Pt still c/o abd pain, but appears comfortable on exam. Tolerating CLD, and asks for advanced diet. Discussed with GI, no plans for endoscopic intervention at this time Gen: awake, alert HEENT: normocephalic, atraumatic, good hearing acuity, moist mucous membranes Resp: good air exchange, breathing comfortably with no accessory muscle use CVS: good distal perfusion x 4, GI: Voluntary guarding, tenderness to palpation in the epigastrium, nondistended : no SPT, no CVAT, garcia catheter not present MSK: no pitting edema, no clubbing Neuro: non-focal, moving all extremities Psych: cooperative, euthymic mood Hospital course: Patient is a 33-year-old with known history of alcoholism, with hx of p ancreatitis complicated by pancreatic pseudocyst, nicotine dependency, and depression who presented to the emergency department with complaints of nausea, vomikting, nd adbominal pain. On arrival to the emergency department he underwent an extensive evaluation. Initial vitals were remarkable for a pulse of 107, blood pressure 172/113. Initial laboratory analysis included CBC, CMP, amylase, lipase, and serum alcohol which were remarkable for white blood cell count 10.9, hemoglobin 9.2, sodium 136, carbon dioxide 8, anion gap 29, lactic acid 3.4, total bilirubin 1.4, AST 103, ALT 64, amylase 251, and lipase of 1966 with serum alcohol 183. In the emergency department he got 1.5 L of fluid, Dilaudid, Zofran, and B1. Arrangements were made for admission. Assessment/Plan: Acute on chronic pancreatitis secondary to alcohol use Transaminitis, suspect secondary to alcohol intake -Lactated Ringer's 130 mL/hr after 1 L bolus -Dilaudid 0.5 mg IV push every 3 hours as needed for moderate pain, 1 mg every 3 hours as needed for severe pain. Monitor for respiratory depression and signs of sedation -FLD now, discharge tomorrow if able to tolerate -Consult GI, appreciate recs -Zofran 4 mg IV every 6 hours as needed for nausea and vomiting -With patient's history of pancreatic pseudocyst will check CT abdomen and pelvis = enlarging cystic structures, bening and malignant etiologies under consideration -outpatient f/u with GI -Repeat CMP today is still pending Anemia Bright Red Blood Per Rectum - likely related to combination of BM suppression from ETOH and AoCD from chronic pancreatitis -Iron studies ordered, c/w JUSTINO - started oral iron replacement -B12/Folate ordered, normal -Serial CBCs -Consult GI Alcohol dependency with impending withdrawal -Continue Librium 25 mg by mouth 3 times daily -CIWA protocol using Ativan. Monitor for signs of sedation -Thiamine 100 mg daily, folic acid 1 mg daily Anion gap metabolic acidosis. Suspect alcoholic ketosis -Lactic acid elevated to 2.9, pH on VBG was 7.21 The patient is admitted with an anticipated greater than 2 midnight stay for evaluation of pancreatitis complicated by alcohol withdrawal and pancreatic pseudocyst. Surrogate decision-maker: CODE STATUS:Full code Anticipated discharge date: Pending Clinical Course Anticipated discharge place: Pending Clinical Course . Objective - Vital Signs Vital signs: Vital Signs Temp 97.5 F L 10/11/23 14:00 Pulse 80 10/11/23 14:00 Resp 19 10/11/23 14:00 BP 147/93 10/11/23 14:00 Pulse Ox 99 10/11/23 14:00 FiO2 Intake & Output 10/10/23 10/11/23 10/11/23 18:59 06:59 18:59 Weight 54.431 kg Other: # Voids 3 2 1 - Labs CBC & Chem 7: 10/11/23 06:00 10/11/23 06:00 Labs: Abnormal Lab Results - Last 24 Hours (Table) 10/10/23 10/11/23 10/11/23 Range/Units 18:22 06:00 06:00 RBC 3.91 L (4.40-5.60) X 10*6/uL Hgb 8.9 L (13.0-17.0) g/dL Hct 31.7 L (39.6-50.0) % MCH 22.8 L (27.0-32.0) pg MCHC 28.1 L (32.0-37.0) g/dL RDW 17.7 H (11.5-14.5) % Sodium 135 L (137-145) mmol/L Potassium 3.3 L (3.5-5.1) mmol/L Chloride 93 L 94 L (98-107) mmol/L Anion Gap 15.40 H (4.00-12.00) mmol/L BUN 6 L 4.9 L (9-20) mg/dL Creatinine 0.39 L 0.5 L (0.66-1.25) mg/dL BUN/Creatinine Ratio 9.80 L (12.00-20.00) Ratio Glucose 116 H (74-99) mg/dL Phosphorus 5.6 H 2.0 L (2.5-4.5) mg/dL AST 100 H (14-35) U/L ALT 51 H (10-49) U/L Alkaline Phosphatase 220 H (41-126) U/L Lipase 332 H (14-60) U/L
[2023-10-11 21:09] VITALS: RESP 17
[2023-10-12] MEDS: ONDANSETRON 4 MG/2 ML VIAL IVP PRN (01:34)
[2023-10-12] MEDS: HYDROmorphone 1 MG/ML 1 ML SYRINGE IVP PRN (02:23)
[2023-10-12 03:22] VITALS: BP 165/106; PULSE 80
--- NOTE | 2023-10-12 14:56 | P.DS ---
Providers Date of admission: 10/09/23 15:21 Expected date of discharge: 10/12/23 Attending physician: Mayi Chaparro DO Consults: 10/09/23 16:58 Consult Physician Routine Consulting Provider: Peg Martin Consult Reason/Comments: Pancreatitis. lower GI bleed Do you want consulting provider notified?: Yes Primary care physician: Stated None Hospital Course: Acute on chronic pancreatitis secondary to alcohol use Transaminitis, suspect secondary to alcohol intake Anemia Bright Red Blood Per Rectum Alcohol dependency with impending withdrawal Anion gap metabolic acidosis. 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 On arrival to the emergency department he underwent an extensive evaluation. Initial vitals were remarkable for a pulse of 107, blood pressure 172/113. Initial laboratory analysis included CBC, CMP, amylase, lipase, and serum alcohol which were remarkable for white blood cell count 10.9, hemoglobin 9.2, sodium 136, carbon dioxide 8, anion gap 29, lactic acid 3.4, total bilirubin 1.4, AST 103, ALT 64, amylase 251, and lipase of 1966 with serum alcohol 183. In the emergency department he got 1.5 L of fluid, Dilaudid, Zofran, and B1. Arrangements were made for admission. Pt was treated with IVF, nausea and pain control. He was improving and tolerating a CLD, however, prior to completion of hospitaliation, patient left AMA overnight before my evaluation on 10/12 for clearance. Patient Condition at Discharge: Undetermined Plan - Discharge Summary New Discharge Prescriptions: No Action No Known Home Medications Discharge Medication List No Known Home Medications 10/09/23 [History] Follow up Appointment(s)/Referral(s): Kerri Adams, NPC [REFERRING] - 3 Weeks None,Stated [Primary Care Provider] - 1-2 days Discharge/Stand Alone Forms: AA Yaima Guzmán, Outpatient Counseling, Inp Substance Abuse Facilities, Area PCPs Discharge Disposition: LEFT AGAINST MEDICAL ADVICE
--- NOTE | 2023-10-15 09:20 | CDI ---
Documentation Clarification Form Date: 10/15/2023 09:03:42 AM From: Madelaine Ware Admit Date: 10/09/2023 03:21:00 PM Patient Name: Chintan Akbar Visit Number: [id number] Discharge Date: 10/12/2023 05:15:00 AM ATTENTION: The Clinical Documentation Specialists (CDI) and [facility] Coding Staff appreciate your assistance in clarifying documentation. Please respond to the clarification below the line at the bottom and electronically sign. The CDI & [facility] Coding staff will review the response and follow-up if needed. Please note: Queries are made part of the Legal Health Record. If you have any questions, please contact the author of this message via ITS. Dr. Mayi Chaparro Per Addendum in H and P "Follow lactic acid level, related to pancreatitis and sepsis." Sepsis is not documented again throughout patient stay. Based on this information and the findings below, is there an additional diagnosis that is clinically appropriate for this patient? History/Risk Factors: Alcoholism, pancreatitis both acute and chronic. GI bleed, alcohol intoxication and withdrawal, acidosis Clinical Indicators: WBC 10.9 Lactic acid: 3.4 Vitals signs: 98.0 F, 107 bpm, 20, 172/113 100% RA Treatment: Patient left AMA Is there an additional diagnosis that is clinically appropriate for this patient? [ ] Sepsis, present on admission [ ] Sepsis, developed during stay, not present on admission [ x ] Sepsis ruled out [ ] Other, please specify [ ] Unable to determine SIRS Criteria: 2 or more of the following may indicate SIRS Temperature < 96.8F (36C) or > 101.0F (38.3C) Heart Rate > 90 bpm Respiratory Rate > 20 breaths/min or PaCO2 < 32 mmHg White Blood Cell Count > 12,000 or < 4,000 cells/mm3 or > 10% bands MTDD
== END 2023-10-12 05:15 | disposition left against medical advice (07) | DRG 439 ==
LOC: EC 13:15 → 4SSUR 15:21
PROVIDERS: ADMIT Internal Medicine; ATTEND Internal Medicine
DX: K85.20 Alcohol induced acute pancreatitis without necrosis or infection (principal); E87.20 Acidosis, unspecified; F10.239 Alcohol dependence with withdrawal, unspecified; K86.3 Pseudocyst of pancreas; K62.5 Hemorrhage of anus and rectum; K86.0 Alcohol-induced chronic pancreatitis; R74.01 Elevation of levels of liver transaminase levels; K75.9 Inflammatory liver disease, unspecified; K83.8 Other specified diseases of biliary tract; F10.220 Alcohol dependence with intoxication, uncomplicated; Y90.6 Blood alcohol level of 120-199 mg/100 ml; D63.8 Anemia in other chronic diseases classified elsewhere; F17.210 Nicotine dependence, cigarettes, uncomplicated; F32.A Depression, unspecified; F90.9 Attention-deficit hyperactivity disorder, unspecified type; I10 Essential (primary) hypertension; K29.70 Gastritis, unspecified, without bleeding; K70.9 Alcoholic liver disease, unspecified; Z82.49 Family history of ischemic heart disease and other diseases of the circulatory system; E88.89 Other specified metabolic disorders
CPT/HCPCS: 36415; 74177; 80048; 80053; 80320; 81001; 82150; 82607; 82728; 82746; 82803; 83010; 83540; 83550; 83605; 83690; 83735; 84100; 85025; 85027; 85045; 85610; 96361; 96372; 96374; 96375; 96376; 99285

== ENCOUNTER 2024-08-31 14:51 | Observation (INO) | payer BC ==
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
[2024-08-31 17:10] LABS: Anisocytosis Slight; Basophils # (A) 0.1 k/uL (0-0.2); Basophils % (A) 1 %; Eosinophils # (A) 0.1 k/uL (0-0.7); Eosinophils % (A) 2 %; HCT 39.2 % (39.0-53.0); HGB 12.3 gm/dL (13.0-17.5); Lymphocytes # (A) 2.2 k/uL (1.0-4.8); Lymphocytes % (A) 28 %; MCH 29.7 pg (25.0-35.0); MCHC 31.3 g/dL (31.0-37.0); MCV 94.7 fL (80.0-100.0); Mean Platelet Volume 7.5; Monocytes # (A) 0.6 k/uL (0-1.0); Monocytes % (A) 7 %; Neutrophils # (A) 4.9 k/uL (1.3-7.7); Neutrophils % (A) 61 %; Platelet Count 253 k/uL (150-450); RBC 4.14 m/uL (4.30-5.90); RDW 16.8 % (11.5-15.5); WBC 8.1 k/uL (3.8-10.6)
[2024-08-31 17:24] LABS: INR 1.5 (<1.2); Partial Thromboplastin Time 26.8 sec (22.0-30.0)
[2024-08-31 17:26] LABS: ALT 44 U/L (4-49); AST 96 U/L (17-59); African American GFR (CKD) >90 (>60 ml/min/1.73 sqM); Albumin 4.1 g/dL (3.5-5.0); Alkaline Phosphatase 172 U/L (38-126); Anion Gap 16 mmol/L; Blood Urea Nitrogen 17 mg/dL (9-20); Calcium 8.6 mg/dL (8.4-10.2); Carbon Dioxide 19 mmol/L (22-30); Chloride 98 mmol/L (98-107); Glucose 108 mg/dL (74-99); Lipase 1422 U/L (23-300); Non-African American GFR(CKD) >90 (>60 ml/min/1.73 sqM); Potassium 3.7 mmol/L (3.5-5.1); Sodium 133 mmol/L (137-145); Total Bilirubin 1.4 mg/dL (0.2-1.3); Total Protein 6.8 g/dL (6.3-8.2)
[2024-08-31 17:43] LABS: Amylase 327 U/L (30-110); C Reactive Protein <0.5 mg/dL (<1.0)
[2024-08-31] MEDS: LORazepam 2 MG/ML INJ IV STA (18:20)
[2024-08-31] MEDS: ONDANSETRON 4 MG/2 ML VIAL IVP STA (18:20)
[2024-08-31] MEDS: MORPHINE SULFATE 4 MG/ML SYRINGE IVP STA (18:20)
[2024-08-31] MEDS: SODIUM CHLORIDE 0.9% 1,000 ML IV STA (18:21)
--- NOTE | 2024-08-31 19:28 | CT ---
EXAMINATION TYPE: CT abdomen pelvis w con DATE OF EXAM: 08/31/2024 6:46 PM COMPARISON: CT abdomen pelvis most recent from CLINICAL INDICATION: Male, 34 years old with history of Abdominal pain, history of pancreatitis; Abdo luis pain, history of pancreatitis TECHNIQUE: Axial CT abdomen pelvis w con;Sagittal and coronal reformats were created on a separate w orkstation. Contrast used:100 ml mL of Isovue 370 with IV Contrast, (none if empty) Oral contrast used: without Oral Contrast (none if empty) CT DLP: 488.1 mGycm, Automated exposure control for dose reduction was used. FINDINGS: LOWER CHEST: Unremarkable ABDOMEN LIVER: Enlarged for size with diffuse low-attenuation. GALLBLADDER AND BILE DUCTS: Unremarkable. PANCREAS: Chronic pancreatic changes with diffuse desiccation throughout the parenchyma. SPLEEN: Unremarkable. ADRENAL GLANDS: Unremarkable. KIDNEYS AND URETERS: No evidence of hydronephrosis or renal calculus. The ureters are unremarkable. PELVIS BLADDER: No evidence for wall thickening or mass given limitations of exam. REPRODUCTIVE: Unremarkable. ABDOMEN & PELVIS STOMACH AND BOWEL: Hyperemia of the right lower quadrant small bowel. No evidence for obstruction. No bowel wall thickening. No evidence of bowel obstruction. PERITONEUM/RETROPERITONEUM: No evidence of pneumoperitoneum. Small amount of free fluid throughout th e abdomen. VASCULATURE: No evidence of aortic aneurysm. MUSCULOSKELETAL: No acute osseous abnormalities LYMPH NODES: No gross evidence for lymphadenopathy. SOFT TISSUE/ABDOMINAL WALL: Unremarkable IMPRESSION: 1. Similar appearance of the small bowel however postcontrast imaging demonstrates right lower quadr ant small bowel bowel hyperemia correlate for enteritis. 2. 3. New ascites throughout abdomen could be reactive. 3. Chronic pancreatitis changes. 4. Hepatomegaly with hepatic steatosis. [facility], , 08/31/2024 7:25 PM
[2024-08-31] MEDS: HYDROmorphone 1 MG/ML 1 ML SYRINGE IVP STA (19:50)
[2024-08-31] MEDS ORDERED: NALOXONE 0.4 MG/ML 1 ML VIAL IV PRN (19:59)
[2024-08-31] MEDS ORDERED: LORazepam 2 MG/ML INJ IV PRN ×2 (20:02)
[2024-08-31] MEDS: SODIUM CHLORIDE 0.9% 1,000 ML IV SCH (20:39)
[2024-08-31] MEDS: HYDROmorphone 2 MG/ML 1 ML SYRINGE IVP PRN (22:59)
[2024-09-01 03:08] LABS: Erythrocyte Sedimentation Rate 14 mm/Hr (0-15)
[2024-09-01] MEDS: ONDANSETRON 4 MG/2 ML VIAL IVP PRN (04:00)
[2024-09-01] MEDS: LORazepam 2 MG/ML INJ IV PRN (07:18)
[2024-09-01] MEDS: THIAMINE 100 MG TAB PO SCH (07:42)
[2024-09-01 08:56] LABS: Basophils # (A) 0.05 X 10*3/uL (0.00-0.10); Basophils % (A) 0.7 %; Eosinophils % (A) 2.7 %; HCT 34.1 % (39.6-50.0); Lymphocytes # (A) 3.16 X 10*3/uL (0.90-5.00); Lymphocytes % (A) 43.1 %; MCH 29.9 pg (27.0-32.0); MCHC 32.3 g/dL (32.0-37.0); MCV 92.7 FL (80.0-97.0); Mean Platelet Volume 9.5 FL (9.5-12.2); Monocytes # (A) 0.72 X 10*3/uL (0.20-1.00); Monocytes % (A) 9.8 %; NRBC Per 100 WBC 0.02 X 10*3/uL (0.00-0.01); Neutrophils # (A) 3.17 X 10*3/uL (1.80-7.70); Neutrophils % (A) 43.3 %; Platelet Count 182 X 10*3/uL (140-440); RBC 3.68 X 10*6/uL (4.40-5.60); RDW 16.8 % (11.5-14.5); WBC 7.33 X 10*3/uL (4.50-10.00)
[2024-09-01 09:00] LABS: Blood Urea Nitrogen 14.1 mg/dL (9.0-27.0); Calcium 8.3 mg/dL (8.7-10.3); Carbon Dioxide 21.9 mmol/L (21.6-31.8); Chloride 97 mmol/L (96-109); Glucose 102 mg/dL (70-110); Lipase 272 U/L (14-60); Potassium 3.6 mmol/L (3.5-5.5); Sodium 135 mmol/L (135-145)
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
[2024-09-01] MEDS: PANTOPRAZOLE 40 MG/10 ML VIAL IVP SCH (10:23)
[2024-09-01 13:06] VITALS: RESP 17
[2024-09-01 15:41] VITALS: BMI 16.5
[2024-09-02 08:21] LABS: HCT 36.6 % (39.6-50.0); HGB 11.5 g/dL (13.0-17.0); MCH 30.5 pg (27.0-32.0); MCHC 31.4 g/dL (32.0-37.0); MCV 97.1 FL (80.0-97.0); Mean Platelet Volume 10.4 FL (9.5-12.2); NRBC Per 100 WBC 0 X 10*3/uL (0.00-0.01); Platelet Count 155 X 10*3/uL (140-440); RBC 3.77 X 10*6/uL (4.40-5.60); RDW 16.1 % (11.5-14.5); WBC 6.57 X 10*3/uL (4.50-10.00)
[2024-09-02 08:27] VITALS: BP 162/92; PULSE 73; TEMP 97.9
[2024-09-02 08:51] LABS: Calcium 8.2 mg/dL (8.7-10.3); Carbon Dioxide 20.5 mmol/L (21.6-31.8); Chloride 97 mmol/L (96-109); Glucose 86 mg/dL (70-110); Potassium 3.4 mmol/L (3.5-5.5); Sodium 137 mmol/L (135-145)
[2024-09-02 09:23] LABS: Lipase 591 U/L (14-60)
[2024-09-02] MEDS: POTASSIUM CHLORIDE ER 10 MEQ TAB.ER.PRT PO SCH (10:24)
--- NOTE | 2024-09-05 14:56 | P.DS ---
Providers Date of admission: 08/31/24 20:02 Attending physician: Carl Monreal Primary care physician: Stated None Hospital Course: Final Diagnosis -Alcoholic pancreatitis: Pancreatitis appears to be improving but patient is still having severe abdominal pain patient will be made n.p.o. until his pain improves continue with pain medications IV fluids cut down IV fluids to 100 cc/h to prevent hyperchloremia -Possible alcoholic gastritis contributing to continued symptoms patient will start on Protonix 40 twice a day -Alcohol abuse: Counseling was provided patient is willing to quit again -Alcohol withdrawal I do not believe patient he will have withdrawals at this time but will be monitored will be continued on Ativan CIWA protocol Discharge Disposition Stable for discharge home he will continue Protonix. He agrees to quit alcohol. Hospital Course 34-year-old male came with complaints of severe abdominal pain found to have pancreatitis with elevated amylase and lipase lipase going up to 1400. Patient had a history of alcohol abuse was sober and started drinking back again about 10 days ago has been drinking 1 pint of vodka every day. Patient denies any fever or chills. Patient last drink was 2 days ago and does not have any withdrawals at this time. Monitored overnight on clear liquid diet. Amylase and lipase are improved patient wants to be discharged home. He should continue on Protonix twice a day on discharge. Counseled extensively on the importance of avoiding alcohol and he agrees. Please see medication reconciliation for a list of current medications. Thank you for allowing us to participate in the care of this patient. The impression and plan of care has been dictated by Mariah Whitfield Nurse Practitioner as directed. Dr. Joaquin MD I have performed a history and physical examination and medical decision making of this patient, discussed the same with the dictator, and agree with the dictators assessment and plan as written, documented as a scribe. Based on total visit time, I have performed more than 50% of this visit. Patient Condition at Discharge: Fair Plan - Discharge Summary Discharge Rx Participant: Yes New Discharge Prescriptions: New Pantoprazole [Protonix] 40 mg PO DAILY #30 tab Thiamine [Vitamin B-1] 100 mg PO DAILY #30 tab Discharge Medication List Pantoprazole [Protonix] 40 mg PO DAILY #30 tab 09/02/24 [Rx] Thiamine [Vitamin B-1] 100 mg PO DAILY #30 tab 09/02/24 [Rx] Follow up Appointment(s)/Referral(s): Peg Martin MD [STAFF PHYSICIAN] - As Needed (Associate Professor Of Physics follow up as needed ) Karolyn Mccarty MD [STAFF PHYSICIAN] - 1-2 Days (office not answering Please call to schedule appointment) None,Stated [Primary Care Provider] - 1-2 days Patient Instructions/Handouts: Pancreatitis (DC) Activity/Diet/Wound Care/Special Instructions: Advance diet as tolerated establish with PCP Avoid alcohol Discharge/Stand Alone Forms: AA Meetings [place], Outpatient Counseling, Inp Substance Abuse Facilities, Area PCPs Discharge Disposition: HOME SELF-CARE
== END 2024-09-02 13:10 | disposition home or self-care (01) ==
LOC: EC 14:51 → 4SSUR 20:02
PROVIDERS: ADMIT Hospitalist; ATTEND Hospitalist
DX: K85.20 Alcohol induced acute pancreatitis without necrosis or infection (principal); F10.139 Alcohol abuse with withdrawal, unspecified; F17.210 Nicotine dependence, cigarettes, uncomplicated; Z71.41 Alcohol abuse counseling and surveillance of alcoholic; Z79.899 Other long term (current) drug therapy; Z88.5 Allergy status to narcotic agent; Z87.19 Personal history of other diseases of the digestive system
CPT/HCPCS: 96376 ×3; 96361 ×2; 96375 ×2; 96374; 99285; 36415; 80053; 80048 ×2; 85652; 82150; 83605; 83690 ×3; 85025 ×2; 85027; 85610; 85730; 86140; 80320; 74177; G0378 ×3; J2060 ×2; J2270; J1171 ×4; J2405 ×2; Q9967; J2470 ×2

== ENCOUNTER 2025-05-12 02:22 | Inpatient (IN) | payer BC ==
[~2025-05-12 02:22] MED LIST changes: +HALOPERIDOL LACTATE 5 MG/ML 1 ML VIAL IM PRN; -LACTATED RINGERS 1,000 ML IV SCH; +LORazepam 1 MG TAB PO PRN; +MAG HYDROX/AL HYDROX/SIMETH 355 ML BOTTLE PO PRN; +MAGNESIUM HYDROXIDE 2,400 MG/30 ML CUP PO PRN; +ONDANSETRON ODT 4 MG TAB PO PRN
[2025-05-12] MEDS: IBUPROFEN 600 MG TAB PO PRN (03:27)
[2025-05-12] MEDS: ACETAMINOPHEN TAB 325 MG TAB PO PRN (03:28)
[2025-05-12] MEDS: PANTOPRAZOLE 40 MG TABLET PO SCH (08:43)
[2025-05-12] MEDS: MIDODRINE 5 MG TAB PO SCH (08:43)
[2025-05-12] MEDS: MULTIVITAMINS, THERA 1 EACH TAB PO SCH (08:43)
[2025-05-12] MEDS: NICOTINE 14MG/24HR PATCH TRANSDERM SCH (08:43)
[2025-05-12] MEDS: FOLIC ACID 1 MG TAB PO SCH (08:43)
[2025-05-12] MEDS: METOPROLOL TARTRATE 25 MG TAB PO SCH (08:43)
[2025-05-12] MEDS: THIAMINE 100 MG TAB PO SCH (08:43)
[2025-05-12] MEDS: buPROPion SR 100 MG TABLET.ER PO SCH (08:43)
[2025-05-12] MEDS: MAGNESIUM OXIDE 400 MG TAB PO SCH (08:44)
[2025-05-12 09:16] VITALS: BP 94/66; PULSE 92; RESP 20; TEMP 98.1
[2025-05-12 10:35] VITALS: BMI 16.5
[2025-05-12 10:39] LABS: Basophils # (A) 0.08 10*3/uL (0.00-0.10); Basophils % (A) 0.8 %; Eosinophils # (A) 0.17 10*3/uL (0.04-0.35); Eosinophils % (A) 1.6 %; HCT 24.2 % (39.6-50.0); HGB 7.7 g/dL (13.0-17.0); Lymphocytes # (A) 2.36 10*3/uL (0.90-5.00); Lymphocytes % (A) 22.6 %; MCH 34.1 pg (27.0-32.0); MCHC 31.8 g/dL (32.0-37.0); MCV 107.1 fL (80.0-97.0); Monocytes # (A) 1.00 10*3/uL (0.20-1.00); Monocytes % (A) 9.6 %; Neutrophils # (A) 6.77 10*3/uL (1.80-7.70); Neutrophils % (A) 64.6 %; Platelet Count 329 10*3/uL (140-440); RBC 2.26 10*6/uL (4.40-5.60); RDW 19.1 % (11.5-14.5); WBC 10.46 10*3/uL (4.50-10.00)
[2025-05-12 11:04] LABS: ALT 41 U/L (4-49); AST 60 U/L (17-59); African American GFR (CKD) >90 (>60 ml/min/1.73 sqM); Albumin 1.8 g/dL (3.5-5.0); Alkaline Phosphatase 296 U/L (38-126); Anion Gap 5 mmol/L; Bilirubin, Delta 2.0 mg/dL (0.0-0.2); Bilirubin,Unconjugated 0.5 mg/dL (0.0-1.1); Blood Urea Nitrogen 3 mg/dL (9-20); Calcium 8.3 mg/dL (8.4-10.2); Carbon Dioxide 25 mmol/L (22-30); Chloride 105 mmol/L (98-107); Glucose 150 mg/dL (74-99); Non-African American GFR(CKD) >90 (>60 ml/min/1.73 sqM); Potassium 4.1 mmol/L (3.5-5.1); Sodium 135 mmol/L (137-145); Total Protein 4.6 g/dL (6.3-8.2)
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
--- NOTE | 2025-05-12 11:45 | P.DS ---
Providers Date of admission: 05/12/25 02:22 Admission HPI: Admission note was completed by Dr. Martins "The patient presented to the [facility] under a CERT from [facility] stating severe malnutrition and unable to care for self. Upon meeting the patient he was able to ambulate and notes that he can feed himself and bathe himself. He notes that he is not depressed or anxious. He denied any suicidal or homicidal ideations. He notes that his sleep is good but he notes that his energy, appetite are decreased because of his alcohol use and history. The patient does have a history of pancreatitis from his alcohol use. The patient notes that his concentration is good. He denies any problems with feeling helpless, hopeless or worthless. He denies any bouts of crying. He does note shame over his drinking. He denies any access to guns. At this time he would like to be discharged. Rehab was offered however the patient would like to forego that." Hospital course: Upon admission to the unit patient was admitted involuntarily on a petition and certificate and a second certificate wasn't not done and canceled CERT. Patient got along well with other patients on the unit and followed unit protocol. Patient was compliant with the medications and denied any side effects throughout hospital course. Patient was started on Bupropion 100 mg twice daily. Patient was also seen by medical team for history and physical exam. On the day of discharge patient denied any suicidal or homicidal ideations intent or plan denied any auditory or visual hallucinations. Patient endorsed wanting to live for their health and family. The patient denied any access to guns or weapons. Patient denied any paranoia and did not endorse any delusions. Patient does have a significant history of substance abuse and was counseled on abstaining from all substances including alcohol and marijuana. Patient was offered however declined inpatient substance-abuse rehab. Patient was also counseled on the medications and need for regular compliance and was encouraged to follow-up with their outpatient appointment for mental health and also for primary care. The patient notes that he was not depressed or anxious on discharge. He notes that he was able to perform his ADLs and feed himself. He notes that he was planning to stay with his mother upon discharge. MENTAL STATUS EXAM: General Appearance: Patient appears to be older than his stated age is alert, The patient had a wide gait but ambulated without a walker, he appeared malnourished. Behavior: Patient is seated without any agitated behavior. Patient was cooperative throughout the interview. Speech: Patient's speech is fluent and nonpressured. Mood/Affect: Patient reports their mood is Euthymic, affect is congruent and constricted. Suicidality/Homicidality: Patient denies having any homicidal ideation intent or plan. Denies any suicidal ideations intent or plan Perceptions: Patient denies any visual hallucinations and denies any auditory hallucinations Though content/process: There is no evidence of any delusional thought content and thought process is linear and goal-directed. Memory and concentration: AOX3, grossly intact for the purposes of this session. Can spell "WORLD" backwards Judgment and insight: Fair/Fair Diagnosis: Alcohol use disorder severe Tobacco use disorder Plan: -Continue with discharge today as patient has improved and stabilized psychiatrically and is not currently an imminent threat to themself and/or others. Patient will remain at chronically elevated risk for harm to self and/or others due to their impulsivity and substance abuse. -Continue medications: Bupropion 100 mg take 1 tablet by mouth twice daily for depression -Patient was counseled on the need for medication compliance and appropriate follow-up at mental health and also primary care for medical issues. Patient verbalized understanding and agreed. -Social work to help coordinate patients discharge today arrange for and conduct family meeting to ensure safety upon discharge and answer any questions/concerns. also to ensure safe home environment that guns/weapons are either removed from the home or locked away. Social work also to arrange for patients follow up appointments for psychiatric care along with follow up with primary care provider. -Patient counseled on abstaining from recreational drugs and marijuana and alcohol. Was informed/educated on the adverse effects on their physical and mental health. Patient verbally agreed and understood. Patient was offered substance abuse treatment however declined at this time. -Patient was instructed to return to the hospital or seek immediate medical care if their psychiatric or medical symptoms do worsen or reoccur. Attending physician: Deanna Benavidez MD Consults: 05/11/25 21:34 Consult Physician Routine Consulting Provider: Maddie Castro Consult Reason/Comments: H & P Do you want consulting provider notified?: Yes Primary care physician: Stated None - Discharge Diagnosis(es) (1) Alcohol intoxication Current Visit: No Status: Chronic Priority: Medium Plan - Discharge Summary Discharge Rx Participant: Yes New Discharge Prescriptions: No Action Pantoprazole [Protonix] 40 mg PO DAILY #30 tab Thiamine [Vitamin B-1] 100 mg PO DAILY #30 tab Discharge Medication List Pantoprazole [Protonix] 40 mg PO DAILY #30 tab 09/02/24 [Rx] Thiamine [Vitamin B-1] 100 mg PO DAILY #30 tab 09/02/24 [Rx] Activity/Diet/Wound Care/Special Instructions: [facility] Discharge Info Avoid the use of street drugs and alcohol. Take all medications as prescribed. When you are in need of refills on your medications, please contact your outpatient medical provider and/or outpatient psychiatrist. Please go to your scheduled outpatient appointments for aftercare treatment. If symptoms return or become worse, call the crisis line at or and/or visit the nearest emergency room for assistance. National Suicide and Crisis Lifeline - call or text 657.
[2025-05-12 17:36] LABS: Cholesterol 147.00 mg/dL (0.00-200.00); HDL Cholesterol 12.90 mg/dL (40.00-60.00); LDL Cholesterol,Calculated 95.7 mg/dL (0.0-131.0); Triglycerides 192.00 mg/dL (0.00-149.00); VLDL Calculation 38.40 mg/dL (5.00-40.00)
[2025-05-13] MEDS ORDERED: THIAMINE 100 MG TAB PO SCH (09:00)
[2025-05-13] MEDS ORDERED: PANTOPRAZOLE 40 MG TABLET PO SCH (09:00)
== END 2025-05-12 14:45 | disposition home or self-care (01) | DRG 896 ==
LOC: 3MHU 02:22
PROVIDERS: ADMIT Psychiatry & Neurology Psychiatry; ATTEND Psychiatry & Neurology Psychiatry
DX: F10.229 Alcohol dependence with intoxication, unspecified (principal); E43 Unspecified severe protein-calorie malnutrition; F32.A Depression, unspecified; Z68.1 Body mass index [BMI] 19.9 or less, adult; F17.210 Nicotine dependence, cigarettes, uncomplicated; K21.9 Gastro-esophageal reflux disease without esophagitis; Z79.899 Other long term (current) drug therapy; Z88.5 Allergy status to narcotic agent
CPT/HCPCS: 80053; 80061; 82248; 83036; 84443; 85025